=== PATIENT | male | born 1950 | race Caucasian/White ===

== ENCOUNTER → 2018-07-09 11:27 | Outpatient (CLI) | payer MEDICARE, OTHER, SELFPAY ==
[2018-07-09 15:47] LABS: T4 Free Direct 0.81 ng/dL (0.76-1.46); Thyroid Stim Hormone (TSH) 7.27 uIU/mL (0.358-3.74)
== END ==
PROVIDERS: Family Provider Family Medicine; PCP Family Medicine; Visit Provider Family Medicine
DX: E03.9 Hypothyroidism, unspecified (principal)
CPT/HCPCS: 36415; 84439; 84443

== ENCOUNTER → 2018-08-19 09:04 | Outpatient (CLI) | payer MEDICARE, OTHER, SELFPAY ==
--- NOTE | 2018-08-19 09:07 | RAD_ITS ---
STUDY: X-RAY - RIGHT KNEE REASON FOR EXAM: Pain. TECHNIQUE: 4 view(s) of the knee. COMPARISON: None. FINDINGS: Normal visualized distal femur. Normal visualized proximal tibia and fibula. Normal proximal tibiofibular articulation. Normal medial femorotibial compartment. Normal lateral femorotibial compartment. Normal patellofemoral articulation. There is an enthesophyte at the superior pole of the patella. RAD/Knee 4 or More Views IMPRESSION: Patellar enthesopathy. Otherwise, unremarkable x-ray examination of the right knee. Electronically Signed: Philip Silva MD at 15:34 EDT Tel , Service support ,
== END ==
PROVIDERS: Family Provider Family Medicine; PCP Family Medicine; Referring Provider Orthopaedic Surgery; Visit Provider Orthopaedic Surgery
DX: M25.561 Pain in right knee (principal)
CPT/HCPCS: 73564

== ENCOUNTER 2018-10-04 11:00 | Outpatient (RCR) | payer MEDICARE, OTHER, SELFPAY ==
--- NOTE | 2018-09-13 11:09 | HP.PTEVAL ---
Patient's Visit Information CRYSTAL Doug RUIZ is a 68 year old M referred to Physical Therapy by Irena Fenton DO with a diagnosis of R medial meniscal tear. Date of Evaluation: 09/13/18 Physical Therapist: Kvng García, PT, - Visit Plan Frequency: 1x/Week Duration: 2 Weeks Plan: I issued a HEP consisting of knee flex, ext, hip abd and add, squats, and HR 15x2 ea with BTB. F/U or DC in 3 weeks - Subjective Subjective: Pt reports his R knee has been sore for 4 months. Pain had an insidious onset in nature. Pt reports his R knee never gives out, locks up, or clicks. Pt denies PMHx. Pt reports he had xrays performed which revealed degenerative changes. 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 Pt reports he has no functional limitations with the exception of prolonged walking. No sleep difficulty secondary to pain. pain is 0/10 at rest, 5/10 at worst. Pt denies T or N at this time. Pt reports his goal is to get some ex's to perform at home. - Pain R knee Pain Intensity (Out of 10): 0 Pain Intensity Range: 5 - Objective Neuro: B LE sensation is WNL to light touch. B achilles reflex= 1/3. Girth at joint line: R knee 36 cm, L knee 35 cm. ROM: L knee 0-125, R knee 0-108. MMT: B LE's 5/5 throughout. Special tests: pos mcmurrays sign - Goals Goal 1:: Pt will be I with HEP Goal Time Frame: 1 Week - Rehabilitation Potential Physical Therapy Diagnosis: R knee pain and limitations with prolonged ambulation secondary to deg changes Rehabilitation Potential: Good - Anticipated Interventions Patient/Client Instruction: Educate patient on: Condition, Plan of Care For the Purpose of:: To improve self management Therapeutic Exercise to Include: Strength training For the Purpose of:: To decrease pain, To increase ROM, To improve muscle performance and motor function Cryotherapy (ice pack, ice massage): Yes For the Purpose of:: To decrease pain, To increase ROM, To improve muscle performance and motor function Thank you for the opportunity to evaluate your patient. For Medicare and Medicare HMO plans, please review the plan of care and approve it. It will need to be FAXED BACK to us at [phone] for Medicare purposes. Please let me know if there are questions or concerns regarding this plan of care. Physician Signature: Date:
--- NOTE | 2018-10-04 11:26 | HP.PTDCSUM ---
HP - PT D/C Summary It has been my pleasure to treat CRYSTAL RUIZ under orders from Irena Fenton DO, for the diagnosis of R medial meniscal tear for a total of 1 visit(s). Discharge Date: Please see the following information for a summary of their discharge status. - Pain R knee Pain Intensity (Out of 10): 0 - Goals Goal 1:: Pt will be I with HEP - Plan Plan: I issued a HEP consisting of knee flex, ext, hip abd and add, squats, and HR 15x2 ea with BTB. F/U or DC in 3 weeks - D/C Information If there are questions or concerns regarding this patient's physical therapy, please feel free to call me at [phone]. Thank you for the referral of this patient. Sincerely, Kvng García, PT,
--- NOTE | 2018-10-04 11:40 | HP.PTDCSUM ---
HP - PT D/C Summary It has been my pleasure to treat CRYSTAL RUIZ under orders from Irena Fenton DO, for the diagnosis of R medial meniscal tear for a total of 2 visit(s). Discharge Date: Please see the following information for a summary of their discharge status. - Subjective Subjective: Pt reports he is painfree and ready fouzia discharge - Pain R knee Pain Intensity (Out of 10): 0 - Objective Objective/Function: R knee pain 0/10. R knee MMT: 5/5 throughout. ROM: 0-125. Pt is I with HEP and has achieved all Rx goals - Goals Goal 1:: Pt will be I with HEP Goal Progress: Goal Met - Plan Plan: Discharge - D/C Information If there are questions or concerns regarding this patient's physical therapy, please feel free to call me at [phone]. Thank you for the referral of this patient. Sincerely, Kvng García, PT,
== END 2018-10-04 12:17 | disposition home or self-care (01) ==
LOC: PT 11:00
PROVIDERS: Family Provider Family Medicine; PCP Family Medicine; Visit Provider Orthopaedic Surgery
DX: M23.307 Other meniscus derangements, unspecified meniscus, left knee (principal)
CPT/HCPCS: 97110; 97161; 97530

== ENCOUNTER 2018-10-07 04:02 | Emergency (ER) | payer MEDICARE, OTHER, SELFPAY ==
[2018-10-07 04:03] VITALS: BP 156/103; PULSE 79; RESP 16; TEMP 36.4; O2SAT 93; BMI 32.1
--- NOTE | 2018-10-07 04:27 | RAD_ITS ---
HISTORY: C/O RT MEDIAL WRIST PAIN. NKI. WOKE UP THIS AM WITH THE PAIN COMPARISON: None FINDINGS: XR right Wrist 3 Views: No fracture, dislocation, or bony abnormality. Joint spaces appear preserved. No bony erosions. Localized soft tissue calcification bordering the ulnar styloid process in the region of the triangular fibrocartilage. This pattern may be seen with CPPD/pseudogout. RAD/Wrist min 3 Views IMPRESSION: Soft tissue calcification at the ulnar right wrist and this may be seen with CPPD/pseudogout. Otherwise negative exam. at 0458 Reported and signed by: Lenard Wolf MD Electronically Signed: Lenard Wolf, at 4:56 EST Tel , Service support ,
[2018-10-07] MEDS: Ibuprofen 600 MG Tablet PO (04:31)
--- NOTE | 2018-10-07 05:00 | ED.VISSUMM ---
- ER Visit Summary Date of Service: 10/07/18 Chief Complaint: Right wrist pain History of Present Illness: The patient is a 68 M nontraumatic increasing right wrist pain since this morning. States mild symptoms this morning. States went bowling this evening after returning home was worsening. 2 Tylenol was taken with no relief. No history of gastric ulcers or kidney injury. Recently saw Dr. Perales for meniscus injury. No previous similar symptoms in the past. Physical Examination: General: Alert and oriented ?3, no acute distress HEENT: Normocephalic, atraumatic. Moist mucosa membranes Neck: supple, nontender. Cardiovascular: Regular rate and rhythm, no murmurs Respiratory: Normal breath sounds, symmetric, no distress Abdomen: Soft, nontender, nondistended Extremities: Right upper extremity: No elbow pain. Reproducible right wrist pain along the ulnar styloid distally along the ulnar aspect. Negative axial load of the TFCC. Reproducible pain with forced radial deviation. No snuffbox tenderness. Skin intact. No erythema. Neuro: no focal neurological deficits. Test Results: Right wrist x-ray: Calcification of the TFCC possible CPPD or pseudogout. Emergency Department Course and Treatment: Nontraumatic wrist pain baseline x-ray reviewed calcium deposits in the TFCC.. She would Motrin and reevaluation had some improving symptoms. No tenderness with axial load of TFCC. This likely sprain of ligaments on the ulnar aspect. Wrist splint provided for comfort. He will wear at night. Continue short-term Motrin as needed. He will follow-up with orthopedics for reevaluation symptoms not improved. In addition request PCP follow-up due to recently hearing his current PCP having health issues. Follow-up was given. Treatment Plan: [] Disposition: Discharge Impression: Right wrist sprain This note was generated with [employer] dictation software. It may contain incorrect words, spelling, and punctuation that were not noted in review of the chart prior to signing ED Disposition - Plan for ED Patient: Disposition: Home or Assisted Living Chief Complaint: Upper Extremity Injury Diagnosis: Right wrist sprain Instructions: ED Sprain Wrist Prescriptions: Ibuprofen 600 mg PO 4X/DAY PRN #20 tablet PRN Reason: Pain Referrals: Irena Fenton DO [STAFF PHYSICIAN] - 3-5 Days if not improving Rebecca Tapia DO [STAFF PHYSICIAN] - Additional Instructions: Calcium buildup at the [facility]. Take anti-inflammatories as needed. Keep wrist splint for comfort. Follow-up with Dr. Fenton
--- NOTE | 2018-10-07 05:12 | ED.DCSUM_ITS ---
- ER Visit Summary Date of Service: 10/07/18 Chief Complaint: Right wrist pain History of Present Illness: The patient is a 68 M nontraumatic increasing right wrist pain since this morning. States mild symptoms this morning. States went bowling this evening after returning home was worsening. 2 Tylenol was taken with no relief. No history of gastric ulcers or kidney injury. Recently saw Dr. Perales for meniscus injury. No previous similar symptoms in the past. Physical Examination: General: Alert and oriented ?3, no acute distress HEENT: Normocephalic, atraumatic. Moist mucosa membranes Neck: supple, nontender. Cardiovascular: Regular rate and rhythm, no murmurs Respiratory: Normal breath sounds, symmetric, no distress Abdomen: Soft, nontender, nondistended Extremities: Right upper extremity: No elbow pain. Reproducible right wrist pain along the ulnar styloid distally along the ulnar aspect. Negative axial load of the TFCC. Reproducible pain with forced radial deviation. No snuffbox tenderness. Skin intact. No erythema. Neuro: no focal neurological deficits. Test Results: Right wrist x-ray: Calcification of the TFCC possible CPPD or pseudogout. Emergency Department Course and Treatment: Nontraumatic wrist pain baseline x- ray reviewed calcium deposits in the TFCC.. She would Motrin and reevaluation had some improving symptoms. No tenderness with axial load of TFCC. This likely sprain of ligaments on the ulnar aspect. Wrist splint provided for comfort. He will wear at night. Continue short-term Motrin as needed. He will follow-up with orthopedics for reevaluation symptoms not improved. In addition request PCP follow-up due to recently hearing his current PCP having health issues. Follow-up was given. Treatment Plan: [] Disposition: Discharge Impression: Right wrist sprain This note was generated with [employer] dictation software. It may contain incorrect words, spelling, and punctuation that were not noted in review of the chart prior to signing ED Disposition - Plan for ED Patient: Disposition: Home or Assisted Living Chief Complaint: Upper Extremity Injury Diagnosis: Right wrist sprain Instructions: ED Sprain Wrist Prescriptions: Ibuprofen 600 mg PO 4X/DAY PRN #20 tablet PRN Reason: Pain Referrals: Irena Fenton DO [STAFF PHYSICIAN] - 3-5 Days if not improving Rebecca Tapia DO [STAFF PHYSICIAN] - Additional Instructions: Calcium buildup at the [facility]. Take anti-inflammatories as needed. Keep wrist splint for comfort. Follow-up with Dr. Fenton
[2018-10-07 05:21] VITALS: BP 138/84; PULSE 67; RESP 12; O2SAT 94
--- OUTSIDE RECORDS SUMMARY | 2018-11-22 23:19 | XMS RPT_ITS ---
:1950 Author Organization OHIP Support Name Relationship Address Phone MARISSA HAUSER Unavailable [address] + [place] [address] R Unavailable Unavailable Unavailable JOSEPH MARISSA Unavailable [address] + [place] [address] R Unavailable Unavailable Unavailable MARISSA HAUSER Unavailable [address] + [place] [address] R Unavailable Unavailable Unavailable MARISSA HAUSER Unavailable [address] + [place] [address] R Unavailable Unavailable Unavailable MARISSA HAUSER Unavailable [address] + [place] [address] R Unavailable Unavailable Unavailable MARISSA HAUSER Unavailable [address] + [place] [address] RUB Unavailable [address] + [place] [address] MARISSA HAUSER Unavailable [address] + [place] [address] RUB Unavailable [address] + [place] [address] MARISSA HAUSER Unavailable [address] + [place] [address] RUB Unavailable [address] + [place] [address] MARISSA HAUSER Unavailable [address] + [place] [address] RUB Unavailable [address] + [place] [address] Care Team Providers Name Role Phone SACHIN WATTS (PA) Attending Unavailable CHAPARRO SÁNCHEZ Referring Unavailable SACHIN WATTS (PA) Attending Unavailable CHAPARRO SÁNCHEZ Referring Unavailable SACHIN WATTS (PA) Attending Unavailable SACHIN WATTS (PA) Attending Unavailable SACHIN WATTS (PA) Attending Unavailable GONZALO CHAPARRO MOORE Referring Unavailable Gonzalo, Chaparro Primary Care Unavailable Luis Lane Attending Unavailable Lenard Morrow Attending Unavailable Gonzalo, Chaparro Referring Unavailable Camilo, Lenny Attending Unavailable Gonzalo, Chaparro Primary Care Unavailable Camilo, Lenny Referring Unavailable Chicorelli, Irena Attending Unavailable Gonzalo, Chaparro Referring Unavailable Chicorelli, Irena Attending Unavailable Gonzalo, Chaparro Referring Unavailable Gonzalo, Chaparro Attending Unavailable Gonzalo, Chaparro Primary Care Unavailable Chicorelli, Irena Attending Unavailable Gonzalo, Chaparro Referring Unavailable Chicorelli, Irena Attending Unavailable Chicorelli, Irena Referring Unavailable Gonzalo, Chaparro Primary Care Unavailable Chicorelli, Irena Attending Unavailable Gonzalo, Chaparro Primary Care Unavailable PROBLEMS PROBLEMS DATE TYPE CONDITION / CODE ATTENDING STATUS SOURCE 11/08/2018 Unknown K60.3 - Anal Camilo, Active Alireza fistula / [facility] K60.3(ICD-10) Hospital Repository 10/04/2018 Unknown 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 - Other Chicorelli, Active Alireza meniscus [facility] derangements, Hospital unspecified Repository meniscus, left knee / M23.307(ICD-10) 08/19/2018 Unknown M25.561 - Pain in Chicorelli, Active Murray right knee / [facility] M25.561(ICD-10) Hospital Repository 07/09/2018 Unknown E03.9 - Chaparro Sánchez Active Alireza Hypothyroidism, Community unspecified / Hospital E03.9(ICD-10) Repository PROCEDURES PROCEDURES No Procedure Records FoundRESULTS RESULTS PROGRESS Observed: 11/15/2018 Status: COMPLETED Source: [place] 5:57 PM [facility] REPOSITORY HNO ID: [id number] Author: Sachin Watts (Pa) Service: (none) Author Type: Physician Pastry Finisher Type: Progress Notes Filed: 11/15/2018 6:06 PM Note Text: FOLLOW UP VISIT - POST OP NAME: Crystal Hauser [facility] NO.: [id number] DATE OF SERVICE: 11/15/2018 : 1950 REFERRING PHYSICIAN: Chaparro Sánchez MD Crystal is a patient I am following for recurrent perianal abscess and suspected anal fistula. Dr. Diallo performed an examination under anesthesia with fistulotomy and seton placement on 11/08/18. The patient currently notes some soreness and mild drainage at the site but no major concerns. VITALS: Blood pressure 128/94, pulse 90, weight 94.5 kg (208 lb 6.4 oz). On examination, the operative site is c/d/i with seton suture visible and intact. No signs of infection Assessment IMPRESSION: Status post EUA and fistulotomy with seton placement PLAN: If the patient notes any problems or signs of wound infections, he should contact me immediately. Diagnoses: (K60.3) Anal fistula (primary encounter diagnosis) Return to Clinic: The patient is instructed to follow- up in 2 weeks for recheck with Dr. Diallo Sachin Watts PA-C CNOV Observed: 11/15/2018 Status: COMPLETED Source: [place] 2:00 PM [facility] REPOSITORY Office Visit (GENSWS) CRYSTAL HAUSER ([id number]) 1950 M Date Time Provider Department 11/15/18 2:00 PM SACHIN WATTS (PA) During your visit today, we recorded the following information about you: Pulse Blood pressure Weight 90/minute 128/94 94.5 kg Sachin Watts PA-C 11/15/2018 2:27 PM Signed -Continue washing area with soap and water, sitz baths -Follow up for wound check in 2 weeks Sachin Watts PA-C 11/15/2018 6:06 PM Signed FOLLOW UP VISIT - POST OP NAME: Crystal Hauser [facility] NO.: [id number] DATE OF SERVICE: 11/15/2018 : 1950 REFERRING PHYSICIAN: Chaparro Sánchez MD Crystal is a patient I am following for recurrent perianal abscess and suspected anal fistula. Dr. Diallo performed an examination under anesthesia with fistulotomy and seton placement on 11/08/18. The patient currently notes some soreness and mild drainage at the site but no major concerns. VITALS: Blood pressure 128/94, pulse 90, weight 94.5 kg (208 lb 6.4 oz). On examination, the operative site is c/d/i with seton suture visible and intact. No signs of infection Assessment IMPRESSION: Status post EUA and fistulotomy with seton placement PLAN: If the patient notes any problems or signs of wound infections, he should contact me immediately. Diagnoses: (K60.3) Anal fistula (primary encounter diagnosis) Return to Clinic: The patient is instructed to follow- up in 2 weeks for recheck with Dr. Diallo Sachin Watts PA-C Referring Provider: CHAPARRO SÁNCHEZ [[id number]] Allergies As of Date: 11/15/2018 (No Known Allergies) Date Reviewed: 11/15/2018 Reviewed by: Sachin Watts (Pa) - Fully Assessed Reason for Visit: Post Op [174] Primary Visit Diagnosis:Anal fistula [K60.3] Prescriptions as of 11/15/2018 Sig: SIMVASTATIN 40 MG TABLET Take 1 tablet by mouth daily * MULTIVITAMIN TABLET Take 1 tablet by mouth once d* Problem List As Of Date 11/15/2018 Noted Resolved HYPERLIPIDEMIA NEC/NOS [E78.5] SCREENING MAL NEOP-PROSTATE [Z12.5] INVALID FOR* Obesity [E66.9] INVALID FOR* Other instructions from your clinician: -Continue washing area with soap and water, sitz baths -Follow up for wound check in 2 weeks Follow-up and Disposition History Recorded Encounter Status:Closed by SACHIN WATST PA-C on 11/15/18 PROGRESS Observed: 11/10/2018 Status: COMPLETED Source: [place] 6:41 PM [facility] REPOSITORY O ID: [id number] Author: Lenny Diallo Service: (none) Author Type: Physician Type: Progress Notes Filed: 11/10/2018 6:43 PM Note Text: OPERATIVE NOTATION FOR [facility] SURGICAL PROCEDURE. November 08, 2018 Crystal Hauser 1950 [id number] male PROCEDURE: Examination Under Anesthesia, Anal Fistula with Seton - [id number] SURGEON: Coleen Diallo M.D. FACS POT FLUXER: None DEPT: WQ PROVIDER: [id number]=PhasootLenny Diallo MD POS: [id number] DIAGNOSIS: (K60.3) Anal fistula (primary encounter diagnosis) ASA CLASS: 2 - mild FINDINGS: COMPLICATIONS: None PMHx - PAST MEDICAL HISTORY Diagnosis Date - Kidney stones - Other and unspecified hyperlipidemia COMORBIDITIES - None Post Op Occurrences - None Wound Classification - Contaminated Operative note dictated in the [facility] dictation system. Lenny Diallo MD OPERATIVE REPORT Observed: 11/08/2018 Status: F Source: [place] 9:42 [facility] REPOSITORY [facility] Medical Records Department [address] [place] [address] Operative Report 11/08/18 1756 MR#: [id number] Acct: [id number] Name: CRYSTAL HAUSER Rep #: [id number] : 1950 68 From: Lenny Diallo MD PCP: Chaparro Sánchez MD Status: DEP [facility] [place] Location: [facility] Report of Operation Date of Procedure: 11/08/18 Pre-Operative Diagnosis: posterior anal fistula Post-Operative Diagnosis: posterior anal fistula - deep into posterior midline Surgery/Procedure Performed:: EUA, fistulotomy with seton placement haulage engine operator: None Type of Anesthesia:: General Anesthesiologist: Walter Bergman - ASA2 Specimen's removed: fistula tract Drains: seton and packing Estimated Blood Loss (mL): 50 Fluids Replaced: 1400 Description of Procedure: The patient was brought to the operating suite. Sign in was performed verifying patient, site, procedure, position, and DVT prophylaxis with SCDs. Clindamycin 900mg Following induction of general anesthetic. The patient was transferred to supine position to the prone jackknife position with care being taken to avoid pressure points. The patient s perineal area was then prepped and draped in the usual fashion. Timeout was performed verifying patient, site, procedure, and position. External examination demonstrated a sinus in the left posterior lateral position, approximate 4 cm from anal verge without significant inflammation By digital exam revealed no obvious palpable abnormalities. Anoscopy was performed which demonstrated a normal appearing dentate line. Hydration peroxide was injected into the sinus. This seemed to track along the subcutaneous tissues right to the area of the dentate line, as expected, following Goodsall s rule. A fistula probe was then placed into the track. the track was high over the posterior sphincter necessitating plan for seton placement. The external fistula opening was excised circumferentially and the track was opened. Excess tissue was excised and hemostasis obtained with electrocautery.as dissection was continued approaching the external sphincter, the fistula track was excised with the deeper sphincter leaving at least half of the sphincter complex superficially intact. The mucosa was excised off the sphincter complex and a pack of 0 silk ties as a seton were placed around the superficial sphincter. With good hemostasis, half percent Marcaine was injected in the perianal skin and dibucaine impregnated Gelfoam was placed in the anal canal. iodinated quarter inch gauze was placed into the external defect. A dressing was applied and mesh pants were used to hold the dressing in place. The patient was returned to the supine position and extubated and brought to recovery room in stable condition. - Admit VTE Documentation VTE Present on Admission: No VTE Mechan Device Prophylaxis: SCD's 11/08/182141 <Electronically signed by Lenny Diallo MD> Date Lenny Diallo MD CC: Lenny Diallo MD; Chaparro Sánchez MD Signed DISCHARGE INSTRUCTION Observed: 11/08/2018 Status: F Source: [place] 6:57 PM [facility] REPOSITORY [facility] Medical Records Department [address] [place] [address] Instructions for Home/Discharge Instructions 11/08/18 1856 MR#: [id number] Acct: [id number] Name: CRYSTAL HAUSER Rep #: [id number] : 1950 68 From: Lenny Diallo MD PCP: Chaparro Sánchez MD Status: REG SDC Discharge Diet: No Restrictions Discharge Activity: Return to Normal Activity, May Not Drive - while taking narcotic pain medications. Additional Activity Instructions:: Do not drive or work with heavy equipment or sign legal documents for 24 hours. Be aware that pain medications may cause nausea. You should typically eat light foods as you take your pain medications. Pain medications may also cause constipation, if you have difficulty with this please discuss with your doctor. Additional Dressing/Incision Instructions:: Leave the operative bandage on for 2 days. If a local anesthetic plug was placed in the anal area, try not to expel for 24-48 hours. Remove anal packing tomorrow. Place dibucaine ointment on the perianal area as needed. Sitz baths twice daily and after bowel movements. Allergies/Adverse Reactions: Allergies No Known Allergies Allergy (Verified 11/05/18 08:13) Medications to take at Discharge coenzyme Q 10 10 mg capsule 10 mg PO ONCE 08/19/18 simvastatin 40 mg tablet 40 mg PO QHS 08/19/18 Ascorbic Acid [Vitamin C] 500 mg PO DAILY 10/07/18 Multivitamin [Daily Multiple Vitamin] 1 each PO DAILY 11/05/18 Dibucaine [Nupercainal] 56.7 gm NH PRN PRN #2 oint...g. 11/08/18 Oxycodone HCl/Acetaminophen [Percocet 5/325] 1 tab PO Q6H PRN PRN 7 Days #18 tab 11/08/18 The following prescriptions were given: Oxycodone HCl/Acetaminophen [Percocet 5/325] 1 tab PO Q6H PRN PRN 7 Days #18 tab PRN Reason: Pain Dibucaine [Nupercainal] 56.7 gm NH PRN PRN #2 oint...g. PRN Reason: Pain Primary Care Physician: Chaparro Sánchez MD [Primary Care Provider] - Test Results: Test results from this visit will be discussed in further detail at your follow-up appointment, if applicable. Please Follow Up With: Lenny Diallo MD - [phone] When: Plan to have a follow up approximately 14 days after surgery. Please Follow Up With: Sachin Watts PA-C When: follow up in 7 days 11/08/18 3864 <Electronically signed by Lenny Diallo MD> Date Lenny Diallo MD CC: Chaparro Sánchez MD Signed CNOP Observed: 11/08/2018 Status: COMPLETED Source: [place] 12:00 AM [facility] REPOSITORY Operative Note (Enc) (GENSWS) Progress Notes: Lenny Diallo MD 11/10/2018 6:43 PM Signed OPERATIVE NOTATION FOR [facility] SURGICAL PROCEDURE. November 08, 2018 Crystal Hauser 1950 [id number] male PROCEDURE: Examination Under Anesthesia, Anal Fistula with Seton - [id number] SURGEON: Coleen Diallo M.D. FACS POT FLUXER: None DEPT: PROVIDER: S76=HetgljuLenny Diallo MD POS: [id number] DIAGNOSIS: (K60.3) Anal fistula (primary encounter diagnosis) ASA CLASS: 2 - mild FINDINGS: COMPLICATIONS: None PMHx - PAST MEDICAL HISTORY Diagnosis Date - Kidney stones - Other and unspecified hyperlipidemia COMORBIDITIES - None Post Op Occurrences - None Wound Classification - Contaminated Operative note dictated in the [facility] dictation system. Lenny Diallo MD Encounter Status:Closed by LENNY DIALLO MD on 11/10/18 FISTULA Observed: 11/08/2018 Status: F Source: [place] 12:00 AM [facility] REPOSITORY Patient: CRYSTAL HAUSER : 1950 (68/M) Acct Num: [id number] Phys: Lenny Diallo MD Unit Num: [id number] Loc: [facility] Specimen: [id number] Received: 11/09/1835 Spec Type: Fistula TISSUES 1 TISSUES: Anal region GROSS DESCRIPTION Received in fixative is one container labeled with the patient's name and designated anal fistula. The specimen consists of two pieces of pink, congested soft tissue that in aggregate measure 4 x 1.5 x 1.5 cm. Sections do not reveal any mass lesion. The specimen is totally submitted in one cassette. / JOVANA:malissa 11/09/18 TC:5 CPT: 32791 HEADER OPERATION: EUA, fistulotomy, anal PRE-OP DIAGNOSIS: Recurrent drainage/perianal abscess TISSUE SUBMITTED: Anal fistula MICROSCOPIC DESCRIPTION Slides are reviewed. MICROSCOPIC DIAGNOSIS Anal fistula: Pieces of skin with underlying tissue including skeletal muscle tissue with chronic inflammation and hyperkeratosis, clinically anal fistula. SJ:malissa 11/10/18 Signed Axel Cox MD 11/10/18 <signature on file> Performed By: #### PFIST #### [facility] [place], [address] PROGRESS Observed: 11/04/2018 Status: COMPLETED Source: [place] 8:19 AM [facility] REPOSITORY HNO ID: [id number] Author: Sachin Watts (Pa) Service: (none) Author Type: Physician Pastry Finisher Type: Progress Notes Filed: 11/04/2018 1:29 PM Note Text: HISTORY AND PHYSICAL Crystal Hauser 1950 REFERRING PHYSICIAN: Self CHIEF COMPLAINT: Recurrent drainage/perianal abscess HPI: The patient is a 68 year old male with a complaint of recurrent perianal abscess. States has had a small lump above the anus for some time since scratching this site, but over the last couple of months has become irritating and intermittently drains small amount of bloody fluid. Denies fever or chills. Denies history of diabetes. Patient notes he had a colonoscopy last year by Dr. Campo which was unremarkable. ? The patient was seen by his primary care physician and was started on oral antibiotics. He continues to have drainage from the site and was referred for surgical evaluation. I performed an incision and drainage of the abscess on 10/01/18 and patient initially did well following that procedure. ? Patient presented on 10/21 for recheck, noting he had an episode of loose stools and after that noted some burning/stinging irritation at the site of his prior abscess. He had his look at the area at that time, and she had noted a small opening in the skin. Patient denies any drainage, warmth or swelling but does note this open area is sensitive with loose stools or wiping after a bowel movement. We had discussed observation with plans for possible CT and/or EUA for further evaluation if symptoms persisted. Patient notes he still has an open area which intermittently becomes irritated and painful to sit on. He notes this sometimes fills up and he is able to drain some purulent material after which time symptoms are temporarily relieved. He has been doing sitz baths as instructed. He would like to pursue definitive treatment. ? Patient states he is otherwise in good health. He denies any known cardiac or pulmonary issues. Denies any problems with sedation in the past. PAST MEDICAL HISTORY Diagnosis Date - Kidney stones - Other and unspecified hyperlipidemia PAST SURGICAL HISTORY Procedure Laterality Date - COLONOSCOPY 2018 Current Outpatient Prescriptions: simvastatin (ZOCOR) 40 mg tablet Take 1 tablet by mouth daily at bedtime. multivitamin tablet Take 1 tablet by mouth once daily. No current facility-administered medications for this visit. ALLERGIES: Patient has no known allergies. PERSONAL HISTORY: Social History Marital status: Spouse name: Years of education: Number of children: Social History Main Topics Smoking status: Never Smoker Smokeless tobacco: Never Used Alcohol use: No Drug use: No FAMILY HISTORY: FAMILY HISTORY Problem Relation Age of Onset - Cancer Mother cancer of uncertain primary - Ischemic Heart Disease Father [place] age 75 - Lipids Sister REVIEW OF SYSTEMS GENERAL: No weight loss, malaise or fevers HEENT: Negative for frequent or significant headaches, No changes in hearing or vision, no nose bleeds or other nasal problems NECK: Negative for lumps, goiter, pain and significant neck swelling RESPIRATORY: Negative for cough, hemoptysis, wheezing, COPD, dyspnea or shortness of breath CARDIOVASCULAR: Negative for chest pain, leg swelling, hypertension, CHF or palpitations GI: See HPI SKIN: See HPI PSYCH: Negative for sleep disturbance, mood disorder and recent psychosocial stressors HEMATOLOGY/LYMPHOLOGY: Negative for prolonged bleeding, bruising easily or swollen nodes ENDOCRINE: Negative for cold or heat intolerance, polyuria, polydipsia and goiter PHYSICAL EXAMINATION: General: The patient is 68 year old male, well nourished, well hydrated in no acute distress. The patient is oriented to time, place, and person. VITALS: Blood pressure 138/74, pulse 78, temperature 36.7 ?C (98.1 ?F), temperature source Temporal Artery, resp. rate 18, height 172.7 cm (5' 8), weight 94.6 kg (208 lb 9.6 oz), SpO2 98 %. HEENT: Normal cephalic, ataumatic, pupils are equally round, sclera are anicteric, mucous membranes are moist, oropharynx is clear. Neck has no masses, asymmetry or lymphadenopathy. Respiratory: Clear to auscultation and percussion. Normal respiratory excursion and pattern. Cardiac: Examination is regular rate and rhythm. Normal S1/S2 Abdominal exam: Soft, nontender, with no palpable masses. No hepatosplenomegaly. No palpable hernias. Rectal exam: exam deferred Extremities: no clubbing, cyanosis or edema. No adenopathy. Other: On examination, a pinpoint opening is again noted superior to the anus with yellow drainage present and some thickening of skin with tenderness between the draining sinus and the anus. 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 Diallo, who also participated in development of the following plan. He plans to perform Examination under Anesthesia with possible fistulotomy. Consent: The proposed procedure, risks, benefits, and alternatives were discussed with the patient in detail. All the patient's questions were answered, and the patient voiced understanding. The patient desires to proceed with surgery. Diagnoses: (K61.0) Perianal abscess (primary encounter diagnosis) Return to Clinic: The patient is instructed to follow-up with me 1 week post-operatively RAHEL Yan Observed: 11/03/2018 Status: COMPLETED Source: [place] 1:00 PM [facility] REPOSITORY Office Visit (GENSWS) CRYSTAL HAUSER ([id number]) 1950 M Date Time Provider Department 11/03/18 1:00 PM SACHIN WATTS) TORY During your visit today, we recorded the following information about you: Temperature Pulse Respiration Blood pressure 98.1 degrees 78/minute 18/minute 138/74 Weight Height 94.6 kg 1.727 m Sachin Watts PA-C 11/04/2018 1:29 PM Signed HISTORY AND PHYSICAL Crystal Doug Hauser 1950 REFERRING PHYSICIAN: Self CHIEF COMPLAINT: Recurrent drainage/perianal abscess HPI: The patient is a 68 year old male with a complaint of recurrent perianal abscess. States has had a small lump above the anus for some time since scratching this site, but over the last couple of months has become irritating and intermittently drains small amount of bloody fluid. Denies fever or chills. Denies history of diabetes. Patient notes he had a colonoscopy last year by Dr. Campo which was unremarkable. ? The patient was seen by his primary care physician and was started on oral antibiotics. He continues to have drainage from the site and was referred for surgical evaluation. I performed an incision and drainage of the abscess on 10/01/18 and patient initially did well following that procedure. ? Patient presented on 10/21 for recheck, noting he had an episode of loose stools and after that noted some burning/stinging irritation at the site of his prior abscess. He had his look at the area at that time, and she had noted a small opening in the skin. Patient denies any drainage, warmth or swelling but does note this open area is sensitive with loose stools or wiping after a bowel movement. We had discussed observation with plans for possible CT and/or EUA for further evaluation if symptoms persisted. Patient notes he still has an open area which intermittently becomes irritated and painful to sit on. He notes this sometimes fills up and he is able to drain some purulent material after which time symptoms are temporarily relieved. He has been doing sitz baths as instructed. He would like to pursue definitive treatment. ? Patient states he is otherwise in good health. He denies any known cardiac or pulmonary issues. Denies any problems with sedation in the past. PAST MEDICAL HISTORY Diagnosis Date - Kidney stones - Other and unspecified hyperlipidemia PAST SURGICAL HISTORY Procedure Laterality Date - COLONOSCOPY 2017 Current Outpatient Prescriptions: simvastatin (ZOCOR) 40 mg tablet Take 1 tablet by mouth daily at bedtime. multivitamin tablet Take 1 tablet by mouth once daily. No current facility-administered medications for this visit. ALLERGIES: Patient has no known allergies. PERSONAL HISTORY: Social History Marital status: Spouse name: Years of education: Number of children: Social History Main Topics Smoking status: Never Smoker Smokeless tobacco: Never Used Alcohol use: No Drug use: No FAMILY HISTORY: FAMILY HISTORY Problem Relation Age of Onset - Cancer Mother cancer of uncertain primary - Ischemic Heart Disease Father [place] age 75 - Lipids Sister REVIEW OF SYSTEMS GENERAL: No weight loss, malaise or fevers HEENT: Negative for frequent or significant headaches, No changes in hearing or vision, no nose bleeds or other nasal problems NECK: Negative for lumps, goiter, pain and significant neck swelling RESPIRATORY: Negative for cough, hemoptysis, wheezing, COPD, dyspnea or shortness of breath CARDIOVASCULAR: Negative for chest pain, leg swelling, hypertension, CHF or palpitations GI: See HPI SKIN: See HPI PSYCH: Negative for sleep disturbance, mood disorder and recent psychosocial stressors HEMATOLOGY/LYMPHOLOGY: Negative for prolonged bleeding, bruising easily or swollen nodes ENDOCRINE: Negative for cold or heat intolerance, polyuria, polydipsia and goiter PHYSICAL EXAMINATION: General: The patient is 68 year old male, well nourished, well hydrated in no acute distress. The patient is oriented to time, place, and person. VITALS: Blood pressure 138/74, pulse 78, temperature 36.7 ?C (98.1 ?F), temperature source Temporal Artery, resp. rate 18, height 172.7 cm (5' 8), weight 94.6 kg (208 lb 9.6 oz), SpO2 98 %. HEENT: Normal cephalic, ataumatic, pupils are equally round, sclera are anicteric, mucous membranes are moist, oropharynx is clear. Neck has no masses, asymmetry or lymphadenopathy. Respiratory: Clear to auscultation and percussion. Normal respiratory excursion and pattern. Cardiac: Examination is regular rate and rhythm. Normal S1/S2 Abdominal exam: Soft, nontender, with no palpable masses. No hepatosplenomegaly. No palpable hernias. Rectal exam: exam deferred Extremities: no clubbing, cyanosis or edema. No adenopathy. Other: On examination, a pinpoint opening is again noted superior to the anus with yellow drainage present and some thickening of skin with tenderness between the draining sinus and the anus. 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 Diallo, who also participated in development of the following plan. He plans to perform Examination under Anesthesia with possible fistulotomy. Consent: The proposed procedure, risks, benefits, and alternatives were discussed with the patient in detail. All the patient's questions were answered, and the patient voiced understanding. The patient desires to proceed with surgery. Diagnoses: (K61.0) Perianal abscess (primary encounter diagnosis) Return to Clinic: The patient is instructed to follow-up with me 1 week post-operatively Sachin Watts PA-C Referring Provider: SELF [[id number]] Allergies As of Date: 11/03/2018 (No Known Allergies) Date Reviewed: 11/03/2018 Reviewed by: Sachin Watts (Pa) - Fully Assessed Reason for Visit: Follow Up [171] Reason For Visit History Recorded Primary Visit Diagnosis:Perianal abscess [K61.0] Prescriptions as of 11/03/2018 Sig: SIMVASTATIN 40 MG TABLET Take 1 tablet by mouth daily * MULTIVITAMIN TABLET Take 1 tablet by mouth once d* Problem List As Of Date 11/03/2018 Noted Resolved HYPERLIPIDEMIA NEC/NOS [E78.5] SCREENING MAL NEOP-PROSTATE [Z12.5] INVALID FOR* Obesity [E66.9] INVALID FOR* Follow-up and Disposition History Recorded Letter Text Letter Text NURSE'S SIGNATURE DOCTOR'S SIGNATURE TIME TIME DATE November 04, 2018 [facility] DATE November 04, 2018 Orders verified by readback: PRE-ADMISSION TESTING PHYSICIAN'S ORDER SHEET PREOPERATIVE ORDERS: X ANTIBIOTIC: _clindamycin 900mg IVPB 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 Date/Time Doctor OR __ Anesthesia not yet notified of consult by surgeon. Check area of concern. System of concern: __Cardiac __Pulmonary __Neuro __ Airway __Allergies __Other __ Anesthesia to see patient at [facility] appointment. (PAT appt must be between 1-3 pm) LAB ORDERS: X Labs done at [facility] (Copies enclosed for [facility]) __ Duplicate order __ No Labs ordered ___ CBC ___ CBC/Diff ___ Basic Metabolic Profile (BUN, Lytes, Glu, Cre, Calcium) __ Glucose __ Creatinine __ BUN __ Lytes __ Protime- Dx code: __ PTT - Dx code: __ Urinalysis __ Urinalysis (complete) __ Liver Profile __ Lipid Profile __ Alk Phosphatase __ Bilirubin __ Amylase/Lipase __ Magnesium __ Phosphorous __ PSA - Dx code: __ CEA - Dx code: __ Urine __ Serum (Age 11-52 years old unless sterilization or pt refuses) X Screen for MRSA (PCR) if guidelines met Other: BLOOD BANK: __ Type AND Screen __ Type AND Cross (RC) units __ Autologous units __ Fresh Frozen Plasma units __ Platelets units ANCILLARY DEPTS: __EKG-MD to read: __PA/Lat CXR Reason for exam: __ Incentive Spirometer __ 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 Patient has no known allergies. Patient's Name: Pam Hauserleandra Patient's Birthdate: 1950 Diagnosis: (K61.0) Perianal abscess (primary encounter diagnosis) [facility] Surgery / Procedure: Surgeon / Physician: Lenny Diallo MD My doctor and I talked about the recommended surgery/procedure, the reasons it is being recommended, and what it generally is expected to do. We talked about major risks or complications that could occur. We talked about options other than the recommended surgery/procedure (including no treatment) and the benefits and risks of each option. I received and understand information describing the surgery or procedure, its potential risks and complications. I know surgery/medicine is not an exact science. No doctor, nurse or anyone from [facility] promised or guaranteed the success or clinical outcome of the surgery/procedure, or that a risk or complication could not occur. I know every surgery/procedure has risks, including the risk of anesthesia, the risk of unplanned injury, the risk of infection and the risk of failure. I know that not every possible risk could be covered in the written materials or in talking with the doctor. Before signing this Consent, I had an opportunity to discuss the recommended surgery/procedure, other options, and risks. I am satisfied with the answers to all of my questions. I understand about risks and knowingly accept them. If you are (or believe you may be ), tell your doctor or nurse before you sign this Consent. Your doctor will discuss with you if there are potential risks to your unborn child. Your consent will be for yourself and for the unborn child. It is the Hospital's policy to require that a responsible adult drive you directly home when you leave the Hospital. By signing, you accept and agree with this policy. By signing, I voluntarily and knowingly give my informed consent: O To have the doctor perform the recommended surgery/procedure. O To have such anesthetics (including moderate sedation) that are necessary and advisable. O To have the doctor perform additional, medically necessary surgery/procedures to treat any unforeseen or newly-discovered condition that occurs during surgery/the procedure, which needs prompt attention. O To examine, record and dispose of any tissue or body parts that are removed. O To allow photographs that will be used strictly for documenting my medical condition and treatment, which will be made a part of my confidential medical record. Check, if applicable: - To give me blood or blood products during surgery/procedure and during my hospital stay, as medically necessary. The risks, benefits, and alternatives to transfusions have been discussed with me and all my questions have been answered. - To not give me blood or blood products. I fully understand that this may adversely affect my medical management and may result in my . Alternatives to blood/blood products have been discussed with me. I read this Form, or had it read to me. I understand what it says. Patient or Responsible Person Relationship to Patient Witness to Signature Only Reason Patient Does Not Sign -- Date and Time signed Physician's signature [id number] Rev 05/01 Informed Consent Page 1 of 2 [facility] Informed Consent Surgery / Procedure: Examination Under Anesthesia, Anal Fistula - [id number] Surgeon / Physician: Lenny Diallo MD My doctor and I talked about the recommended surgery / procedure, the reasons it is being recommended, and what it generally is expected to do. We talked about major risks or complications that could occur. We talked about options other than the recommended surgery / procedure (including no treatment) and the benefits and risks of each option. I received and understand information describing the surgery or procedure, its potential risks, and complications. I know surgery / medicine is not an exact science. No doctor, nurse or anyone from [facility] promised or guaranteed the success or clinical outcome of the surgery / procedure, or that a risk or complication could not occur. I know every surgery / procedure has risks, including the risk of anesthesia, the risk of unplanned injury, the risk of infection and the risk of failure. I know that not every possible risk could be covered in the written materials or in talking with the doctor. Before signing this Consent, I had an opportunity to discuss the recommended surgery / procedure, other options, risks, and what may occur if I choose not to have the surgery / procedure. I am satisfied with the answers to all of my questions. I understand about risks and knowingly accept them. If you are (or believe you may be ), tell your doctor or nurse before you sign this Consent. Your doctor will discuss with you if there are potential risks to your unborn child. Your consent will be for yourself and for the unborn child. It is the Hospital?s policy to require that a responsible adult drive you directly home when you leave the Hospital. By signing, you accept and agree with this policy. By signing, I voluntarily and knowingly give my informed consent: To have the doctor perform the recommended surgery / procedure To have such anesthetics (including moderate / deep sedation) that are necessary and advisable. To have the doctor perform additional, medically necessary surgery / procedures to treat any unforeseen or newly-discovered condition that occurs during surgery / the procedure, which needs prompt attention. To examine, record and dispose of any tissue or body parts that are removed. To allow photographs that will be used strictly for documenting my medical condition and treatment, which will be made a part of my confidential medical record. To allow [facility] employees, such as an Registered Nurse Ladle Handler (ENGINEERING RECRUITER) to assist with my surgery To allow Healthcare Industry Representatives to be present during my surgery or procedure To allow students to participate in the care, under appropriate situations. Page 1 of 2 [facility] Informed Consent Check One: To give me blood or blood products during surgery / procedure and during my hospital stay, as medically necessary. The risks, benefits, and alternatives to transfusions have been discussed with me and all my questions have been answered. To not give me blood or blood products. I fully understand that this may adversely affect my medical management and may result in my . Alternatives to blood / blood products have been discussed with me. I read this Form, or had it read to me. I understand what it says. Patient Signature Relationship to Patient Date AND Time Signed Reason Patient Does Not Sign Witness to Signature Only Date and Time Signed I certify that I have explained the nature, purpose, anticipated risks and benefits, complications, and alternatives to the proposed procedure to the patient. I have answered all questions fully and I believe the patient fully understands what I have explained. Physician?s Signature Date and Time [facility] [address] [place], [place] [address] Chaparro Sánchez MD [address] [place] [address] 11/04/2018 Dear Chaparro Sánchez MD : Thank you for allowing me to evaluate your patient, Crystal Doug Hauser. I saw Crystal on 11/03/2018. I am planning to perform a asdsad. Enclosed is a copy of my office dictation for Crystal which includes my evaluation and recommendations. Again, thank you for the referral of Crystal Hauser. If I can be of any assistance to you in the future, please don't hesitate to call. Sincerely yours, Lenny Diallo MD, FACS HISTORY AND PHYSICAL Crystal Hauser 1950 REFERRING PHYSICIAN: Self CHIEF COMPLAINT: Recurrent drainage/perianal abscess HPI: The patient is a 68 year old male with a complaint of recurrent perianal abscess. States has had a small lump above the anus for some time since scratching this site, but over the last couple of months has become irritating and intermittently drains small amount of bloody fluid. Denies fever or chills. Denies history of diabetes. Patient notes he had a colonoscopy last year by Dr. Campo which was unremarkable. ? The patient was seen by his primary care physician and was started on oral antibiotics. He continues to have drainage from the site and was referred for surgical evaluation. I performed an incision and drainage of the abscess on 10/01/18 and patient initially did well following that procedure. ? Patient presented on 10/21 for recheck, noting he had an episode of loose stools and after that noted some burning/stinging irritation at the site of his prior abscess. He had his look at the area at that time, and she had noted a small opening in the skin. Patient denies any drainage, warmth or swelling but does note this open area is sensitive with loose stools or wiping after a bowel movement. We had discussed observation with plans for possible CT and/or EUA for further evaluation if symptoms persisted. Patient notes he still has an open area which intermittently becomes irritated and painful to sit on. He notes this sometimes fills up and he is able to drain some purulent material after which time symptoms are temporarily relieved. He has been doing sitz baths as instructed. He would like to pursue definitive treatment. ? Patient states he is otherwise in good health. He denies any known cardiac or pulmonary issues. Denies any problems with sedation in the past. PAST MEDICAL HISTORY Diagnosis Date - Kidney stones - Other and unspecified hyperlipidemia PAST SURGICAL HISTORY Procedure Laterality Date - COLONOSCOPY 2017 Current Outpatient Prescriptions: simvastatin (ZOCOR) 40 mg tablet Take 1 tablet by mouth daily at bedtime. multivitamin tablet Take 1 tablet by mouth once daily. No current facility-administered medications for this visit. ALLERGIES: Patient has no known allergies. PERSONAL HISTORY: Social History Marital status: Spouse name: Years of education: Number of children: Social History Main Topics Smoking status: Never Smoker Smokeless tobacco: Never Used Alcohol use: No Drug use: No FAMILY HISTORY: FAMILY HISTORY Problem Relation Age of Onset - Cancer Mother cancer of uncertain primary - Ischemic Heart Disease Father [place] age 75 - Lipids Sister REVIEW OF SYSTEMS GENERAL: No weight loss, malaise or fevers HEENT: Negative for frequent or significant headaches, No changes in hearing or vision, no nose bleeds or other nasal problems NECK: Negative for lumps, goiter, pain and significant neck swelling RESPIRATORY: Negative for cough, hemoptysis, wheezing, COPD, dyspnea or shortness of breath CARDIOVASCULAR: Negative for chest pain, leg swelling, hypertension, CHF or palpitations GI: See HPI SKIN: See HPI PSYCH: Negative for sleep disturbance, mood disorder and recent psychosocial stressors HEMATOLOGY/LYMPHOLOGY: Negative for prolonged bleeding, bruising easily or swollen nodes ENDOCRINE: Negative for cold or heat intolerance, polyuria, polydipsia and goiter PHYSICAL EXAMINATION: General: The patient is 68 year old male, well nourished, well hydrated in no acute distress. The patient is oriented to time, place, and person. VITALS: Blood pressure 138/74, pulse 78, temperature 36.7 ?C (98.1 ?F), temperature source Temporal Artery, resp. rate 18, height 172.7 cm (5' 8), weight 94.6 kg (208 lb 9.6 oz), SpO2 98 %. HEENT: Normal cephalic, ataumatic, pupils are equally round, sclera are anicteric, mucous membranes are moist, oropharynx is clear. Neck has no masses, asymmetry or lymphadenopathy. Respiratory: Clear to auscultation and percussion. Normal respiratory excursion and pattern. Cardiac: Examination is regular rate and rhythm. Normal S1/S2 Abdominal exam: Soft, nontender, with no palpable masses. No hepatosplenomegaly. No palpable hernias. Rectal exam: exam deferred Extremities: no clubbing, cyanosis or edema. No adenopathy. Other: On examination, a pinpoint opening is again noted superior to the anus with yellow drainage present and some thickening of skin with tenderness between the draining sinus and the anus. 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 Diallo, who also participated in development of the following plan. He plans to perform Examination under Anesthesia with possible fistulotomy. Consent: The proposed procedure, risks, benefits, and alternatives were discussed with the patient in detail. All the patient's questions were answered, and the patient voiced understanding. The patient desires to proceed with surgery. Diagnoses: (K61.0) Perianal abscess (primary encounter diagnosis) Return to Clinic: The patient is instructed to follow-up with me 1 week post-operatively Sachin Watts PA-C 11/04/2018 HISTORY AND PHYSICAL Crystal Doug Hauser 1950 REFERRING PHYSICIAN: Self CHIEF COMPLAINT: Recurrent drainage/perianal abscess HPI: The patient is a 68 year old male with a complaint of recurrent perianal abscess. States has had a small lump above the anus for some time since scratching this site, but over the last couple of months has become irritating and intermittently drains small amount of bloody fluid. Denies fever or chills. Denies history of diabetes. Patient notes he had a colonoscopy last year by Dr. Campo which was unremarkable. ? The patient was seen by his primary care physician and was started on oral antibiotics. He continues to have drainage from the site and was referred for surgical evaluation. I performed an incision and drainage of the abscess on 10/01/18 and patient initially did well following that procedure. ? Patient presented on 10/21 for recheck, noting he had an episode of loose stools and after that noted some burning/stinging irritation at the site of his prior abscess. He had his look at the area at that time, and she had noted a small opening in the skin. Patient denies any drainage, warmth or swelling but does note this open area is sensitive with loose stools or wiping after a bowel movement. We had discussed observation with plans for possible CT and/or EUA for further evaluation if symptoms persisted. Patient notes he still has an open area which intermittently becomes irritated and painful to sit on. He notes this sometimes fills up and he is able to drain some purulent material after which time symptoms are temporarily relieved. He has been doing sitz baths as instructed. He would like to pursue definitive treatment. ? Patient states he is otherwise in good health. He denies any known cardiac or pulmonary issues. Denies any problems with sedation in the past. PAST MEDICAL HISTORY Diagnosis Date - Kidney stones - Other and unspecified hyperlipidemia PAST SURGICAL HISTORY Procedure Laterality Date - COLONOSCOPY 2017 Current Outpatient Prescriptions: simvastatin (ZOCOR) 40 mg tablet Take 1 tablet by mouth daily at bedtime. multivitamin tablet Take 1 tablet by mouth once daily. No current facility-administered medications for this visit. ALLERGIES: Patient has no known allergies. PERSONAL HISTORY: Social History Marital status: Spouse name: Years of education: Number of children: Social History Main Topics Smoking status: Never Smoker Smokeless tobacco: Never Used Alcohol use: No Drug use: No FAMILY HISTORY: FAMILY HISTORY Problem Relation Age of Onset - Cancer Mother cancer of uncertain primary - Ischemic Heart Disease Father [place] age 75 - Lipids Sister REVIEW OF SYSTEMS GENERAL: No weight loss, malaise or fevers HEENT: Negative for frequent or significant headaches, No changes in hearing or vision, no nose bleeds or other nasal problems NECK: Negative for lumps, goiter, pain and significant neck swelling RESPIRATORY: Negative for cough, hemoptysis, wheezing, COPD, dyspnea or shortness of breath CARDIOVASCULAR: Negative for chest pain, leg swelling, hypertension, CHF or palpitations GI: See HPI SKIN: See HPI PSYCH: Negative for sleep disturbance, mood disorder and recent psychosocial stressors HEMATOLOGY/LYMPHOLOGY: Negative for prolonged bleeding, bruising easily or swollen nodes ENDOCRINE: Negative for cold or heat intolerance, polyuria, polydipsia and goiter PHYSICAL EXAMINATION: General: The patient is 68 year old male, well nourished, well hydrated in no acute distress. The patient is oriented to time, place, and person. VITALS: Blood pressure 138/74, pulse 78, temperature 36.7 ?C (98.1 ?F), temperature source Temporal Artery, resp. rate 18, height 172.7 cm (5' 8), weight 94.6 kg (208 lb 9.6 oz), SpO2 98 %. HEENT: Normal cephalic, ataumatic, pupils are equally round, sclera are anicteric, mucous membranes are moist, oropharynx is clear. Neck has no masses, asymmetry or lymphadenopathy. Respiratory: Clear to auscultation and percussion. Normal respiratory excursion and pattern. Cardiac: Examination is regular rate and rhythm. Normal S1/S2 Abdominal exam: Soft, nontender, with no palpable masses. No hepatosplenomegaly. No palpable hernias. Rectal exam: exam deferred Extremities: no clubbing, cyanosis or edema. No adenopathy. Other: On examination, a pinpoint opening is again noted superior to the anus with yellow drainage present and some thickening of skin with tenderness between the draining sinus and the anus. 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 Diallo, who also participated in development of the following plan. He plans to perform Examination under Anesthesia with possible fistulotomy. Consent: The proposed procedure, risks, benefits, and alternatives were discussed with the patient in detail. All the patient's questions were answered, and the patient voiced understanding. The patient desires to proceed with surgery. Diagnoses: (K61.0) Perianal abscess (primary encounter diagnosis) Return to Clinic: The patient is instructed to follow-up with me 1 week post-operatively Sachin Watts PA-C I have reviewed the above history and physical exam. There have been no significant changes Lenny Diallo MD 11/04/2018 Encounter Status:Closed by SACHIN WATTS PA-C on 11/04/18 ORTHOPEDIC VISIT Observed: 10/22/2018 Status: F Source: [facility] [place] REPORT 3:42 PM [facility] REPOSITORY [facility] [address] [place] [address] OFFICE VISIT Date of Service: 10/22/18 MR#: [id number] Acct: [id number] Name: CRYSTAL HAUSER Rep #: [id number] : 1950 Provider: HECTOR Morrow Age/Sex: 68/M [place] [facility] [place]: Signed Intake Vital Signs10/22/18 Body Mass Index (BMI) 32.1 10/08/18 Body Mass Index (BMI) 32.1 Intake Visit Reasons: FU ER WRIST SPRAIN Allergies No Known Allergies Allergy (Unverified 08/19/18 08:58) Medications coenzyme Q 10 10 mg capsule 10 mg PO ONCE 08/19/18 [History Confirmed 10/07/18] glucosamine HCl 1,500 mg tablet 1,500 mg PO DAILY 08/19/18 [History Confirmed 10/07/18] simvastatin 40 mg tablet 40 mg PO QHS 08/19/18 [History Confirmed 10/07/18] Ascorbic Acid [Vitamin C] mg PO DAILY 10/07/18 [History] Ibuprofen 600 mg PO 4X/DAY PRN #20 tab 10/07/18 [Rx] PFSH Social History Smoking Status: Never smoker [facility] ER WRIST SPRAIN: Details: CRYSTAL HAUSER is a 68 year old M here today for ED f/u on right wrist injury. He has had right wrist pain on and off for a long time. He had pain that seemed worse but went bowling and hoped it would help. But his pain got so bad he ended up in the ED due to inability to move it or use and was unable to sleep due to the pain. Denies numbness, tingling or other associated symptoms. They gave him some nsaids and he had good relief as well as a splint for the wrist. He has very little pain today and has been able to return to all normal activities. He has been work on rom and has not returned to bowling. Ortho Exam Right Wrist/Hand Skin/Wound: No Swelling, No Ecchymosis Contralateral Normal: Yes Right Wrist: Yes ROM-Extension 0-60, ROM-Flexion 0-80, ROM- Pronation 0-80 and ROM-Supination 0-90; no TTP Fracture site, Snuffbox tenderness, Durken's Test or Nanette's Test Motor: EPL: 5, FDP-2: 5 Sensation: Radial: I, Ulnar: I, Median: I WRIST: Patient has no evident abnormalities on inspection of the wrist. He has no localized or generalized swelling or other skin changes. He has full range of motion and normal strength of the wrist as well as the fingers. He has normal sensation throughout the extremity indicating intact median and ulnar nerve. Patient does appear to have some minor localized tenderness just distal to the ulnar styloid around the TFCC region. He has no other pains over the carpal bones. He has no signs of de Quervain's. He has no signs of carpal tunnel. Left Wrist/Hand Skin/Wound: No Swelling, No Ecchymosis Assessment AND Plan Problems 1. Injury of triangular fibrocartilage complex (TFCC) of right wrist, initial encounter S69.81XA Plan I did review patient's x-rays that he had in the emergency room which did not show any acute abnormalities. appears to be some calcifications within the fibrocartilage disc of the distal ulna or possibly adjacent ligamentous structures. This does correspond with where his tenderness is located. There is no noted clicking or popping to indicate obvious tear. He has seen improvement with rest, ice, and anti-inflammatories. At this time patient states he is going to wait 1 more week before returning to bowling and other activities just to make sure as he states he feels almost 90% back to normal. He can continue to ice and take anti-inflammatories as needed and wear the wrist splint if rest as needed. We discussed further treatment options which include possible injection and/or occupational therapy if he has continued pains or problems. He will notify of any continued issues or any new concerns or complaints. This note was generated with Metrilusation software. It may contain incorrect words, spelling, and punctuation that were not noted in checking the note before signing. Coding Level of Care Code Off vis,est,level 3 Diagnoses Injury of triangular fibrocartilage complex (TFCC) of right wrist, initial encounter S69.81XA Encounter type: initial encounter 10/22/18 1542 <Electronically signed by Lenard YOUNG> Date Lenard YOUNG Cosigner Signature: Date (if applicable) CC: PROGRESS Observed: 10/21/2018 Status: COMPLETED Source: [place] 10:23 PM [facility] REPOSITORY O ID: [id number] Author: Sachin Watts (Pa) Service: (none) Author Type: Physician Pastry Finisher Type: Progress Notes Filed: 10/21/2018 10:28 PM Note Text: FOLLOW UP VISIT - ABSCESS NAME: Crystal Hauser [facility] NO.: [id number] DATE OF SERVICE: 10/21/2018 : 1950 REFERRING PHYSICIAN: Chaparro Sánchez MD Crystal is a patient I am following for a perianal abscess. I performed an incision and drainage of the abscess on 10/01/18. The patient notes no complaints of fever since the procedure. He notes no further drainage. Patient concerned as a few days ago, he had an episode of loose stools and after that noted some burning/stinging irritation at the site of his prior abscess. He had his look at the area, and she had noted a small opening in the skin. Patient denies any drainage, warmth or swelling but does note this open area is sensitive with loose stools or wiping after a bowel movement. VITALS: There were no vitals taken for this visit. On examination, a pinpoint opening is noted with no drainage or signs of fistula tract currently, and no erythema or fluctuance Assessment IMPRESSION: Status post incision and drainage of perianal abscess, delayed wound healing PLAN: I have reviewed my findings with Dr. Diallo -Continue sitz baths twice daily -May use dibucaine ointment (available topically) on open area until healed -Return if symptoms not resolving in the next 2 months. If symptoms persist would plan for CT scan and/or EUA for further evaluation Patient verbalized understanding of all above and agreed with the plan Diagnoses: (K61.0) Perianal abscess (primary encounter diagnosis) Sachin Watts PA-C CNOV Observed: 10/21/2018 Status: COMPLETED Source: [place] 2:30 PM [facility] REPOSITORY Office Visit (GENSWS) CRYSTAL HAUSER ([id number]) 1950 M Date Time Provider Department 10/21/18 2:30 PM SACHIN WATTS) TORY During your visit today, we recorded the following information about you: Sachin Watts PA-C 10/21/2018 3:05 PM Signed -Continue sitz baths twice daily -May use dibucaine ointment (available topically) on open area until healed -Return if symptoms not resolving in the next 2 months Sachin Watts PA-C 10/21/2018 10:28 PM Signed FOLLOW UP VISIT - ABSCESS NAME: Crystal Hauser CLINIC NO.: [id number] DATE OF SERVICE: 10/21/2018 : 1950 REFERRING PHYSICIAN: Chaparro Sánchez MD Crystal is a patient I am following for a perianal abscess. I performed an incision and drainage of the abscess on 10/01/18. The patient notes no complaints of fever since the procedure. He notes no further drainage. Patient concerned as a few days ago, he had an episode of loose stools and after that noted some burning/stinging irritation at the site of his prior abscess. He had his look at the area, and she had noted a small opening in the skin. Patient denies any drainage, warmth or swelling but does note this open area is sensitive with loose stools or wiping after a bowel movement. VITALS: There were no vitals taken for this visit. On examination, a pinpoint opening is noted with no drainage or signs of fistula tract currently, and no erythema or fluctuance Assessment IMPRESSION: Status post incision and drainage of perianal abscess, delayed wound healing PLAN: I have reviewed my findings with Dr. Diallo -Continue sitz baths twice daily -May use dibucaine ointment (available topically) on open area until healed -Return if symptoms not resolving in the next 2 months. If symptoms persist would plan for CT scan and/or EUA for further evaluation Patient verbalized understanding of all above and agreed with the plan Diagnoses: (K61.0) Perianal abscess (primary encounter diagnosis) Sachin Watts PA-C Referring Provider: SELF [200] Allergies As of Date: 10/21/2018 (No Known Allergies) Date Reviewed: 10/21/2018 Reviewed by: Momo Alvarez LPN - Fully Assessed Reason for Visit: Established Patient [175] Cmt: pain s/p perirectal abscess Primary Visit Diagnosis:Perianal abscess [K61.0] Prescriptions as of 10/21/2018 Sig: IBUPROFEN 600 MG TABLET 4 TIMES DAILY PRN For Pain MULTIVITAMIN TABLET Take 1 tablet by mouth once d* SIMVASTATIN 40 MG TABLET Take 1 tablet by mouth daily * Problem List As Of Date 10/21/2018 Noted Resolved HYPERLIPIDEMIA NEC/NOS [E78.5] SCREENING MAL NEOP-PROSTATE [Z12.5] INVALID FOR* Obesity [E66.9] INVALID FOR* Other instructions from your clinician: -Continue sitz baths twice daily -May use dibucaine ointment (available topically) on open area until healed -Return if symptoms not resolving in the next 2 months Follow-up and Disposition History Recorded Encounter Status:Closed by SACHIN WATTS PA-C on 10/21/18 PROGRESS Observed: 10/08/2018 Status: COMPLETED Source: [place] 8:59 PM [facility] REPOSITORY HNO ID: [id number] Author: Sachin Watts (Pa) Service: (none) Author Type: Physician Pastry Finisher Type: Progress Notes Filed: 10/08/2018 9:02 PM Note Text: FOLLOW UP VISIT - ABSCESS NAME: Crystalleandra Hauser [facility] NO.: [id number] DATE OF SERVICE: 10/08/2018 : 1950 REFERRING PHYSICIAN: Chaparro Sánchez MD Crystal is a patient I am following for a perianal abscess. I performed an incision and drainage of the abscess on 10/01/18. The patient notes no complaints of fever since the procedure. Pain has been minimal to none, and he notes no further drainage. VITALS: There were no vitals taken for this visit. On examination, the incision site is nicely healed with no drainage or signs of fistula tract Assessment IMPRESSION: Status post incision and drainage of perianal abscess PLAN: If there are any problems or signs of recurrent abscess, the patient is to contact me immediately. Diagnoses: (K61.0) Perianal abscess (primary encounter diagnosis) Return to Clinic: The patient is instructed to follow- up with me as needed. Sachin Watts PA-C CNOV Observed: 10/08/2018 Status: COMPLETED Source: [place] 3:00 PM [facility] REPOSITORY Office Visit (GENSWS) JOSEPHLUCIANON Doug ([id number]) 1950 Date Time Provider Department 10/08/18 3:00 PM SACHIN WATTS (PA) During your visit today, we recorded the following information about you: Sachin Watts PA-C 10/08/2018 3:26 PM Signed -Follow up as needed Sachin Watts PA-C 10/08/2018 9:02 PM Signed FOLLOW UP VISIT - ABSCESS NAME: Crystal Hauser CLINIC NO.: [id number] DATE OF SERVICE: 10/08/2018 : 1950 REFERRING PHYSICIAN: Chaparro Sánchez MD Crystal is a patient I am following for a perianal abscess. I performed an incision and drainage of the abscess on 10/01/18. The patient notes no complaints of fever since the procedure. Pain has been minimal to none, and he notes no further drainage. VITALS: There were no vitals taken for this visit. On examination, the incision site is nicely healed with no drainage or signs of fistula tract Assessment IMPRESSION: Status post incision and drainage of perianal abscess PLAN: If there are any problems or signs of recurrent abscess, the patient is to contact me immediately. Diagnoses: (K61.0) Perianal abscess (primary encounter diagnosis) Return to Clinic: The patient is instructed to follow- up with me as needed. Sachin Watts PA-C Referring Provider: CHAPARRO SÁNCHEZ [[id number]] Allergies As of Date: 10/08/2018 (No Known Allergies) Date Reviewed: 10/08/2018 Reviewed by: Sachin Watts (Pa) - Fully Assessed Reason for Visit: Post Op [174] Cmt: Post op Perirectal abscess Primary Visit Diagnosis:Perianal abscess [K61.0] Prescriptions as of 10/08/2018 Sig: IBUPROFEN 600 MG TABLET 4 TIMES DAILY PRN For Pain MULTIVITAMIN TABLET Take 1 tablet by mouth once d* SIMVASTATIN 40 MG TABLET Take 1 tablet by mouth daily * Problem List As Of Date 10/08/2018 Noted Resolved HYPERLIPIDEMIA NEC/NOS [E78.5] SCREENING MAL NEOP-PROSTATE [Z12.5] INVALID FOR* Obesity [E66.9] INVALID FOR* Other instructions from your clinician: -Follow up as needed Encounter Status:Closed by SACHIN WATTS PA-C on 10/08/18 EMERGENCY DEPARTMENT Observed: 10/07/2018 Status: F Source: [place] SUMMARY 5:15 AM [facility] REPOSITORY [facility] Medical Records Department [address] [place] [address] Emergency Department Summary 10/07/18 0500 MR#: [id number] Acct: [id number] Name: CRYSTAL HAUSER Rep #: [id number] : 1950 68 From: Luis Fay PCP: Chaparro Sánchez MD Status: REG ER - ER Visit Summary Date of Service: 10/07/18 Chief Complaint: Right wrist pain History of Present Illness: The patient is a 68 M nontraumatic increasing right wrist pain since this morning. States mild symptoms this morning. States went bowling this evening after returning home was worsening. 2 Tylenol was taken with no relief. No history of gastric ulcers or kidney injury. Recently saw Dr. Perales for meniscus injury. No previous similar symptoms in the past. Physical Examination: General: Alert and oriented 3, no acute distress HEENT: Normocephalic, atraumatic. Moist mucosa membranes Neck: supple, nontender. Cardiovascular: Regular rate and rhythm, no murmurs Respiratory: Normal breath sounds, symmetric, no distress Abdomen: Soft, nontender, nondistended Extremities: Right upper extremity: No elbow pain. Reproducible right wrist pain along the ulnar styloid distally along the ulnar aspect. Negative axial load of the TFCC. Reproducible pain with forced radial deviation. No snuffbox tenderness. Skin intact. No erythema. Neuro: no focal neurological deficits. Test Results: Right wrist x-ray: Calcification of the TFCC possible CPPD or pseudogout. Emergency Department Course and Treatment: Nontraumatic wrist pain baseline x-ray reviewed calcium deposits in the TFCC.. She would Motrin and reevaluation had some improving symptoms. No tenderness with axial load of TFCC. This likely sprain of ligaments on the ulnar aspect. Wrist splint provided for comfort. He will wear at night. Continue short-term Motrin as needed. He will follow-up with orthopedics for reevaluation symptoms not improved. In addition request PCP follow-up due to recently hearing his current PCP having health issues. Follow-up was given. Treatment Plan: [] Disposition: Discharge Impression: Right wrist sprain This note was generated with LifePics dictation software. It may contain incorrect words, spelling, and punctuation that were not noted in review of the chart prior to signing ED Disposition - Plan for ED Patient: Disposition: Home or Assisted Living Chief Complaint: Upper Extremity Injury Diagnosis: Right wrist sprain Instructions: ED Sprain Wrist Prescriptions: Ibuprofen 600 mg PO 4X/DAY PRN #20 tablet PRN Reason: Pain Referrals: Irena Fenton DO [STAFF PHYSICIAN] - 3-5 Days if not improving Rebecca Tapia DO [STAFF PHYSICIAN] - Additional Instructions: Calcium buildup at the [facility]. Take anti-inflammatories as needed. Keep wrist splint for comfort. Follow-up with Dr. Fenton What to do if you have Problems For any increased pain, shortness of breath, bleeding, nausea or vomiting, chest pain, or any unexpected problems, contact your Primary Care Provider. Call [facility] ([phone]) or report to the closest Emergency Room. Call 911 if necessary. 10/07/18 0515 <Electronically signed by Luis Fay> Date Luis Fay Cosigner Signature (If Indicated): Date CC: Chaparro Sánchez MD WRIST MIN 3 VIEWS Observed: 10/07/2018 Status: F Source: [place] 4:27 AM [facility] REPOSITORY [facility] Imaging Services [address] [place], [place] [address] [address] Wrist min 3 Views MR#: [id number] Acct: [id number] Name: CRYSTAL HAUSER Rep #: [id number] : 1950 M 68 From: Lenard Wolf MD PCP: Chaparro Sánchez MD Status: REG ER Study: Wrist min 3 Views Date of Exam: 10/07/18 Exam# [id number] Ordering Dr: Luis Lane DO HISTORY: C/O RT MEDIAL WRIST PAIN. NKI. WOKE UP THIS AM WITH THE PAIN COMPARISON: None FINDINGS: XR right Wrist 3 Views: No fracture, dislocation, or bony abnormality. Joint spaces appear preserved. No bony erosions. Localized soft tissue calcification bordering the ulnar styloid process in the region of the triangular fibrocartilage. This pattern may be seen with CPPD/pseudogout. RAD/Wrist min 3 Views IMPRESSION: Soft tissue calcification at the ulnar right wrist and this may be seen with CPPD/pseudogout. Otherwise negative exam. at 0458 Reported and signed by: Lenard Wolf MD Electronically Signed: Lenard Wolf, at 4:56 EST Tel , Service support , CC: Chaparro Sánchez MD; Luis Lane Folder Taper Operator: Signed PT D/C SUMMARY (1) Observed: 10/04/2018 Status: F Source: [place] 11:40 AM [facility] REPOSITORY [facility] Physical Therapy [address] [place] [address] Fax REHABILITATION SERVICES DISCHARGE SUMMARY MR#: [id number] Acct: [id number] Name: CRYSTAL HAUSER Rep #: [id number] : 1950 68 From: Kvng García PT, ATC Referring DrCarrington: Irena Fenton DO Status: REG RCR Insurance: MEDICARE PART A B AARP HP - PT D/C Summary It has been my pleasure to treat CRYSTAL HAUSER under orders from Irena Fenton DO, for the diagnosis of R medial meniscal tear for a total of 2 visit(s). Discharge Date: Please see the following information for a summary of their discharge status. - Subjective Subjective: Pt reports he is painfree and ready fouzia discharge - Pain R knee Pain Intensity (Out of 10): 0 - Objective Objective/Function: R knee pain 0/10. R knee MMT: 5/5 throughout. ROM: 0-125. Pt is I with HEP and has achieved all Rx goals - Goals Goal 1:: Pt will be I with HEP Goal Progress: Goal Met - Plan Plan: Discharge - D/C Information If there are questions or concerns regarding this patient's physical therapy, please feel free to call me at [phone]. Thank you for the referral of this patient. Sincerely, Kvng García PT, <Electronically signed by Kvng García PT, ATC> 10/04/18 1140 CC: Irena Fenton DO; Chaparro Sánchez MD [facility] Signed PT D/C SUMMARY (1) Observed: 10/04/2018 Status: F Source: [place] 11:27 AM [facility] REPOSITORY [facility] Physical Therapy [facility] [address] [place] [address] Fax REHABILITATION SERVICES DISCHARGE SUMMARY MR#: [id number] Acct: [id number] Name: CRYSTAL HAUSER Rep #: [id number] : 1950 68 From: Kvng García PT, ATC Referring Dr.: Irena Fenton DO Status: REG RCR Insurance: MEDICARE PART A B AARP HP - PT D/C Summary It has been my pleasure to treat CRYSTAL HAUSER under orders from Irena Fenton DO, for the diagnosis of R medial meniscal tear for a total of 1 visit(s). Discharge Date: Please see the following information for a summary of their discharge status. - Pain R knee Pain Intensity (Out of 10): 0 - Goals Goal 1:: Pt will be I with HEP - Plan Plan: I issued a HEP consisting of knee flex, ext, hip abd and add, squats, and HR 15x2 ea with BTB. F/U or DC in 3 weeks - D/C Information If there are questions or concerns regarding this patient's physical therapy, please feel free to call me at [phone]. Thank you for the referral of this patient. Sincerely, Kvng García, PT, <Electronically signed by Kvng García PT, ATC> 10/04/18 1127 CC: Irena Fenton DO; Chaparro Sánchez MD [facility] Signed PROGRESS Observed: 10/01/2018 Status: COMPLETED Source: [place] 9:51 PM [facility] REPOSITORY HNO ID: [id number] Author: Sachin Watts (Pa) Service: (none) Author Type: Physician Pastry Finisher Type: Progress Notes Filed: 10/05/2018 5:29 PM Note Text: HISTORY AND PHYSICAL Crystal Hauser 1950 REFERRING PHYSICIAN: Chaparro Sánchez MD CHIEF COMPLAINT: Perianal abscess HPI: Crystal is a 68 year old male with a complaint of a perianal abscess. States has had a small lump there for some time, but over the last 2 months has become irritating and intermittently drains small amount of bloody fluid. Denies fever or chills. Denies history of diabetes. Patient notes he had a colonoscopy last year by Dr. Campo which was unremarkable. The patient was seen by his primary care physician and was started on oral antibiotics. He continues to have drainage from the site and is referred for surgical evaluation SIGNIFICANT MEDICAL PROBLEMS: PAST MEDICAL HISTORY Diagnosis Date - Kidney stones - Other and unspecified hyperlipidemia OPERATIONS: PAST SURGICAL HISTORY Procedure Laterality Date - COLONOSCOPY 2017 CURRENT MEDICATIONS: Current Outpatient Prescriptions: simvastatin (ZOCOR) 40 mg tablet Take 1 tablet by mouth daily at bedtime. Disp: 90 tablet Rfl: 0 multivitamin tablet Take 1 tablet by mouth once daily. Disp: Rfl: 0 No current facility-administered medications for this visit. ALLERGIES: Patient has no known allergies. PERSONAL HISTORY: Social History Marital status: Spouse name: Years of education: Number of children: Social History Main Topics Smoking status: Never Smoker Smokeless tobacco: Never Used Alcohol use: No Drug use: No FAMILY HISTORY: FAMILY HISTORY Problem Relation Age of Onset - Cancer Mother cancer of uncertain primary - Ischemic Heart Disease Father [place] age 75 - Lipids Sister REVIEW OF SYSTEMS GENERAL: No weight loss, malaise or fevers GI: Negative for abdominal discomfort, blood in stools or black stools, change in bowel habit, diarrhea, history of Crohn's or ulcerative colitis MUSCULOSKELETAL: Negative for joint pain or swelling, back pain or muscle pain PHYSICAL EXAMINATION: General: The patient is 68 year old male, well nourished, well hydrated in no acute distress. The patient is oriented to time, place, and person. VITALS: There were no vitals taken for this visit. There is no height or weight on file to calculate BMI. Extremities: no clubbing, cyanosis or edema. No adenopathy. Other: perianal Abscess - a 1 cm x 1cm nodule with small draining sinus and minimal erythema, to left of anus. The skin overlying the point of maximal fluctance is viable. LABORATORY VALUES: As Noted RADIOLOGIC STUDIES: As Noted PROCEDURE: INCISION AND DRAINAGE OF perianal ABSCESS Epic down at time of procedure-printed hard copy consent form was signed prior to procedure and scanned into [facility]. After consent was obtained and the site, person, and procedure verified, the patient`s skin was prepped and draped in the usual fashion. A combination of Lidocaine and Marcaine was injected into the skin. A linear incision was made over the point of maximal fluctuance. A minimal amount of purulent material and bloody fluid were drained. The abscess was then unroofed. The cavity was packed with plain gauze. The patient tolerated the procedure well. Assessment IMPRESSION: STATUS POST INCISION AND DRAINAGE OF perianal ABSCESS PLAN: Crystal is instructed to remove packing tomorrow and cover with bandaid. If the dressing becomes soaked or had significant drainage, the dressing should be changed. If there is minor bleeding from this skin edge, the patient should hold pressure on the incision. If there is continued bleeding, the patient should contact our office immediately. The patient should wash the wound with gentle soap and water. he may shower. The wound should not be immersed in a pool, bathtub, or even hot tub. Diagnoses: (K61.0) Perianal abscess (primary encounter diagnosis) Return to Clinic: The patient is instructed to follow-up with me in one week. RAEHL Yan Observed: 10/01/2018 Status: COMPLETED Source: [place] 2:00 PM [facility] REPOSITORY Office Visit (GENSWS) CRYSTAL HAUSER ([id number]) 1950 M Date Time Provider Department 10/01/18 2:00 PM SACHIN WATTS) GENCANDICES During your visit today, we recorded the following information about you: Sachin Watts PA-C 10/01/2018 3:19 PM Signed The following instructions are important for you related to your office visit today with the [facility]. Instructions After PERIRECTAL ABSCESS DRAINAGE There may be some bleeding as the packing is removed. This may be controlled with direct pressure. The redness and swelling and discomfort should decrease after drainage of your abscess. If the redness, swelling, or discomfort increase or you start having high fevers, contact our office immediately. Once the packing has been removed, you should start performing sitz baths. For sitz baths-draw for 10 five inches of lukewarm bath water and soak for approximately 10 minutes. You may add epsom salts or other agents to the water. Stool softeners and dibucaine ointment or other over the counter anal pain medications will help with the discomfort of bowel movements. I do not recommend anal preparations with steroids (most ointments with HC in the name) after abscess drainage. Follow up with Sachin Watts PA-C in 1 week for wound check If you note any additional difficulties, questions, or concerns, you should contact our office immediately @ [phone] and ask to be transferred to the General Surgery department. Sachin Watts PA-C 10/05/2018 5:29 PM Signed HISTORY AND PHYSICAL Crystal Hauser 1950 REFERRING PHYSICIAN: Chaparro Sánchez MD CHIEF COMPLAINT: Perianal abscess HPI: Crystal is a 68 year old male with a complaint of a perianal abscess. States has had a small lump there for some time, but over the last 2 months has become irritating and intermittently drains small amount of bloody fluid. Denies fever or chills. Denies history of diabetes. Patient notes he had a colonoscopy last year by Dr. Campo which was unremarkable. The patient was seen by his primary care physician and was started on oral antibiotics. He continues to have drainage from the site and is referred for surgical evaluation SIGNIFICANT MEDICAL PROBLEMS: PAST MEDICAL HISTORY Diagnosis Date - Kidney stones - Other and unspecified hyperlipidemia OPERATIONS: PAST SURGICAL HISTORY Procedure Laterality Date - COLONOSCOPY 2017 CURRENT MEDICATIONS: Current Outpatient Prescriptions: simvastatin (ZOCOR) 40 mg tablet Take 1 tablet by mouth daily at bedtime. Disp: 90 tablet Rfl: 0 multivitamin tablet Take 1 tablet by mouth once daily. Disp: Rfl: 0 No current facility-administered medications for this visit. ALLERGIES: Patient has no known allergies. PERSONAL HISTORY: Social History Marital status: Spouse name: Years of education: Number of children: Social History Main Topics Smoking status: Never Smoker Smokeless tobacco: Never Used Alcohol use: No Drug use: No FAMILY HISTORY: FAMILY HISTORY Problem Relation Age of Onset - Cancer Mother cancer of uncertain primary - Ischemic Heart Disease Father RI age 75 - Lipids Sister REVIEW OF SYSTEMS GENERAL: No weight loss, malaise or fevers GI: Negative for abdominal discomfort, blood in stools or black stools, change in bowel habit, diarrhea, history of Crohn's or ulcerative colitis MUSCULOSKELETAL: Negative for joint pain or swelling, back pain or muscle pain PHYSICAL EXAMINATION: General: The patient is 68 year old male, well nourished, well hydrated in no acute distress. The patient is oriented to time, place, and person. VITALS: There were no vitals taken for this visit. There is no height or weight on file to calculate BMI. Extremities: no clubbing, cyanosis or edema. No adenopathy. Other: perianal Abscess - a 1 cm x 1cm nodule with small draining sinus and minimal erythema, to left of anus. The skin overlying the point of maximal fluctance is viable. LABORATORY VALUES: As Noted RADIOLOGIC STUDIES: As Noted PROCEDURE: INCISION AND DRAINAGE OF perianal ABSCESS Epic down at time of procedure-printed hard copy consent form was signed prior to procedure and scanned into [facility]. After consent was obtained and the site, person, and procedure verified, the patient`s skin was prepped and draped in the usual fashion. A combination of Lidocaine and Marcaine was injected into the skin. A linear incision was made over the point of maximal fluctuance. A minimal amount of purulent material and bloody fluid were drained. The abscess was then unroofed. The cavity was packed with plain gauze. The patient tolerated the procedure well. Assessment IMPRESSION: STATUS POST INCISION AND DRAINAGE OF perianal ABSCESS PLAN: Crystal is instructed to remove packing tomorrow and cover with bandaid. If the dressing becomes soaked or had significant drainage, the dressing should be changed. If there is minor bleeding from this skin edge, the patient should hold pressure on the incision. If there is continued bleeding, the patient should contact our office immediately. The patient should wash the wound with gentle soap and water. he may shower. The wound should not be immersed in a pool, bathtub, or even hot tub. Diagnoses: (K61.0) Perianal abscess (primary encounter diagnosis) Return to Clinic: The patient is instructed to follow-up with me in one week. Sachin Watts PA-C Referring Provider: CHAPARRO SÁNCHEZ [[id number]] Allergies As of Date: 10/01/2018 (No Known Allergies) Date Reviewed: 10/01/2018 Reviewed by: Sachin Watts (Pa) - Fully Assessed Reason for Visit: Consult [173] Cmt: Consult perirectal abscess Primary Visit Diagnosis:Perianal abscess [K61.0] Prescriptions as of 10/01/2018 Sig: SIMVASTATIN 40 MG TABLET Take 1 tablet by mouth daily * MULTIVITAMIN TABLET Take 1 tablet by mouth once d* Problem List As Of Date 10/01/2018 Noted Resolved HYPERLIPIDEMIA NEC/NOS [E78.5] SCREENING MAL NEOP-PROSTATE [Z12.5] INVALID FOR* Obesity [E66.9] INVALID FOR* Other instructions from your clinician: The following instructions are important for you related to your office visit today with the [facility] General Surgeons. Instructions After PERIRECTAL ABSCESS DRAINAGE There may be some bleeding as the packing is removed. This may be controlled with direct pressure. The redness and swelling and discomfort should decrease after drainage of your abscess. If the redness, swelling, or discomfort increase or you start having high fevers, contact our office immediately. Once the packing has been removed, you should start performing sitz baths. For sitz baths-draw for 10 five inches of lukewarm bath water and soak for approximately 10 minutes. You may add epsom salts or other agents to the water. Stool softeners and dibucaine ointment or other over the counter anal pain medications will help with the discomfort of bowel movements. I do not recommend anal preparations with steroids (most ointments with HC in the name) after abscess drainage. Follow up with Sachin Watts PA-C in 1 week for wound check If you note any additional difficulties, questions, or concerns, you should contact our office immediately @ [phone] and ask to be transferred to the General Surgery department. Encounter Status:Closed by SACHIN WATTS PA-C on 10/05/18 INITAL EVALUATION (1) Observed: 09/13/2018 Status: F Source: [place] - PT 11:09 AM [facility] REPOSITORY [facility] Physical Therapy [facility] [address] [place] [address]. [address] [place], [place] [address] Fax REHABILITATION SERVICES INITIAL EVALUATION MR#: [id number] Acct: [id number] Name: CRYSTAL HAUSER Rep #: [id number] : 1950 68 From: Kvng García PT, ATC Referring Dr.: Irena Fenton DO Status: REG RCR Insurance: MEDICARE PART A B [facility] Patient's Visit Information CRYSTAL HAUSER is a 68 year old M referred to Physical Therapy by Irena Fenton DO with a diagnosis of R medial meniscal tear. Date of Evaluation: 09/13/18 Physical Therapist: Kvng García PT, - Visit Plan Frequency: 1x/Week Duration: 2 Weeks Plan: I issued a HEP consisting of knee flex, ext, hip abd and add, squats, and HR 15x2 ea with BTB. F/U or DC in 3 weeks - Subjective Subjective: Pt reports his R knee has been sore for 4 months. Pain had an insidious onset in nature. Pt reports his R knee never gives out, locks up, or clicks. Pt denies PMHx. Pt reports he had xrays performed which revealed degenerative changes. 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 Pt reports he has no functional limitations with the exception of prolonged walking. No sleep difficulty secondary to pain. pain is 0/10 at rest, 5/10 at worst. Pt denies T or N at this time. Pt reports his goal is to get some ex's to perform at home. - Pain R knee Pain Intensity (Out of 10): 0 Pain Intensity Range: 5 - Objective Neuro: B LE sensation is WNL to light touch. B achilles reflex= 1/3. Girth at joint line: R knee 36 cm, L knee 35 cm. ROM: L knee 0-125, R knee 0-108. MMT: B LE's 5/5 throughout. Special tests: pos mcmurrays sign - Goals Goal 1:: Pt will be I with HEP Goal Time Frame: 1 Week - Rehabilitation Potential Physical Therapy Diagnosis: R knee pain and limitations with prolonged ambulation secondary to deg changes Rehabilitation Potential: Good - Anticipated Interventions Patient/Client Instruction: Educate patient on: Condition, Plan of Care For the Purpose of:: To improve self management Therapeutic Exercise to Include: Strength training For the Purpose of:: To decrease pain, To increase ROM, To improve muscle performance and motor function Cryotherapy (ice pack, ice massage): Yes For the Purpose of:: To decrease pain, To increase ROM, To improve muscle performance and motor function Thank you for the opportunity to evaluate your patient. For Medicare and Medicare HMO plans, please review the plan of care and approve it. It will need to be FAXED BACK to us at [phone] for Medicare purposes. Please let me know if there are questions or concerns regarding this plan of care. Physician Signature: Date: <Electronically signed by Kvng García PT, ATC> 09/13/18 1109 CC: Irena Fenton DO; Chaparro Sánchez MD [facility] Signed For Medicare only, by signing this I certify the plan of care. Physicians Signature Date ORTHOPEDIC VISIT Observed: 08/19/2018 Status: F Source: [place] REPORT 11:38 AM [facility] REPOSITORY [facility] Orthopaedics AND Sports Medicine [facility] [address] [place] [address] OFFICE VISIT Date of Service: 08/19/18 MR#: [id number] Acct: [id number] Name: CRYSTAL HAUSER Rep #: [id number] : 1950 Provider: Irena Fenton DO Age/Sex: 68/M Location: [facility] [place] [facility] [place] [place] Status: Signed Intake Vital Signs08/19/18 Height 5 ft 8 in 08/19/18 Weight: 208 lb 08/19/18 Body Mass Index (BMI) 31.6 Intake Visit Reasons: RIGHT KNEE Is patient in pain?: Yes Pain scale (1-10): 3 Allergies No Known Allergies Allergy (Unverified 08/19/18 08:58) Medications coenzyme Q 10 10 mg capsule 10 mg PO ONCE 08/19/18 [History Confirmed 08/19/18] glucosamine HCl 1,500 mg tablet 1,500 mg PO DAILY 08/19/18 [History Confirmed 08/19/18] simvastatin 40 mg tablet 40 mg PO QHS 08/19/18 [History Confirmed 08/19/18] HPI RIGHT KNEE: Details: CRYSTAL HAUSER is a 68 year old M here today for right knee pain. Patient has had right knee pain for about 5 months. He states his knee improved and then started bothering him again recently. He denies any known injury. Patient complains of medial knee pain. He denies any popping, clicking or grinding. Patient denies any knee swelling. He has increased pain with ambulation. Patient has used a cane for a few days to help. Patient denies any bracing. He has used aleve for pain. Patient denies any injections, physical therapy, xray or MRI. ROS Const Reports system reviewed and no additional complaints, except as docu Eyes Reports system reviewed and no additional complaints, except as docu ENT Reports system reviewed and no additional complaints, except as docu Card Reports system reviewed and no additional complaints, except as docu Resp Reports system reviewed and no additional complaints, except as docu GI Reports system reviewed and no additional complaints, except as docu Reports system reviewed and no additional complaints, except as docu Musc Reports joint pain Skin/Breast Reports system reviewed and no additional complaints, except as docu Neuro Yes system reviewed and no additional complaints, except as docu Psych Reports system reviewed and no additional complaints, except as docu Endo Reports system reviewed and no additional complaints, except as docu Ortho Exam Right Knee Skin/Wound: Yes CDI Contralateral Normal: Yes Swelling: No Homans Sign: No Knee ROM: Yes ROM-Extension -20 to 0, Yes ROM-Flexion 0-140 Examination: Yes Med jt line tenderness, Yes Pain with flexion Quad Atrophy: No Stability: NML: Anterior Drawer, NML: Valgus 30 Assessment AND Plan 1. 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 X-rays were reviewed. There is no obvious fracture, dislocation, or lucency noted. Educated on the anatomy of the knee and etiology of his pain. Explained that he has signs of degenerative meniscus tear. His treatment options are do nothing, injection, PT/HEP for strengthening, gel injection or brace. Explained that the small tears cause inflammation and synovitis, steroid injection today will aid in inflammation relief. If all the conservative options fail we will order an MRI to eval for possible knee arthroscopy. Follow up in 6-8wks or as needed or sooner if pain, swelling, numbness or associated symptoms, or concerns develop. All questions answered. Patient in agreement of plan. 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 08/19/18 1138 <Electronically signed by Irena Fenton DO> Date Irena Fenton DO Cosigner Signature: Date (if applicable) CC: KNEE 4 OR MORE Observed: 08/19/2018 Status: F Source: [place] VIEWS 9:07 AM [facility] REPOSITORY [facility] Imaging Services [address] [place] [address] Knee 4 or More Views MR#: [id number] Acct: [id number] Name: CRYSTAL HAUSER Rep #: [id number] : 1950 M 68 From: Philip Silva MD PCP: Chaparro Sánchez MD Status: REG CLI Study: Knee 4 or More Views Date of Exam: 08/19/18 Exam# [id number] Ordering Dr: Irena Fenton DO STUDY: X-RAY - RIGHT KNEE REASON FOR EXAM: Pain. TECHNIQUE: 4 view(s) of the knee. COMPARISON: None. FINDINGS: Normal visualized distal femur. Normal visualized proximal tibia and fibula. Normal proximal tibiofibular articulation. Normal medial femorotibial compartment. Normal lateral femorotibial compartment. Normal patellofemoral articulation. There is an enthesophyte at the superior pole of the patella. RAD/Knee 4 or More Views IMPRESSION: Patellar enthesopathy. Otherwise, unremarkable x-ray examination of the right knee. 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, [address] T4 FREE DIRECT Collected: 07/09/2018 Status: F Source: [place] 11:29 AM [facility] REPOSITORY TYPE CODE TESTS RESULT OUT OF RANGE REFERENCE UNITS LAB L506.0400 0.76-1.46 ng/dL Normal T4 FREE 0.81 DIRECT Performed By: #### L501.9520, L506.0400 #### [facility] [address] [place], [address] ALLERGIES ALLERGIES DATE TYPE / CODE NAME / CODE REACTION SEVERITY SOURCE 11/05/2018 Drug No Known Unknown [facility] Allergy/416 Allergies/Z38479 Hospital 390034(SNOM 0388(RXNORM) Repository ED CT) Drug NO KNOWN [facility] Class/34168 ALLERGIES [place] 1003(SNOMED Repository CT) ENCOUNTERS ENCOUNTERS ADMIT/DISCHARGE ACCOUNT ADMITTING ENCOUNTER LOCATION SOURCE NUMBER CLASS 11/15/2018/11/16/19 [id number] Ambulatory [address] Repository 11/08/2018/11/08/19 [id number] Ambulatory [address] ing:SDCRoom: Repository AC14 11/03/2018/11/05/19 [id number] Ambulatory [address] Repository 10/22/2018/10/22/20 [id number] Ambulatory BMSBuilding:B [place] [address] [facility] Repository 10/21/2018/10/25/20 [id number] Ambulatory [address] Repository 10/08/2018/10/11/20 [id number] Ambulatory [address] Repository 10/07/2018/10/07/20 [id number] Emergency [address] ing:ED Repository 10/04/2018/10/04/20 [id number] Ambulatory [address] ing:PT Repository 10/01/2018/10/06/20 [id number] Ambulatory [address] Repository 08/19/2018 [id number] Ambulatory [facility] ing:HPRAD Repository 08/19/2018/08/19/20 [id number] Ambulatory BMSBuilding:B [place] 18 [facility] Repository 07/09/2018 [id number] Ambulatory [place] [facility] ing:BFHLAB Repository 04/15/2018 [id number] Ambulatory BMSBuilding:B [place] [facility] Repository 04/02/2018 [id number] Ambulatory BMSBuilding:B [place] [facility] Repository PAYERS PAYERS ENCOUNTER GUARANTOR PAYER SUBSCRIBER SOURCE 11/08/2018 CRYSTAL JOY Primary CRYSTAL AUSTINB: [place] CR Insurance:MEDICARE [id number] [address] [address]Txh: Number: Repository [id number] () Date:2018-11-03 11/08/2018 Secondary CRYSTALLeandra AUSTINB: [place] Insurance:AARolicy [id number] Community Number: Hospital [id number] Repository Date:4979-51-58NB [facility] 423[place], [place] [address]CH: 11/08/2018 Tertiary NOT GIVENUNK [place] Insurance:SELF PAY [facility] Number: Effective Repository Date:2018-11-03 10/22/2018 CRYSTAL JOY Primary CRYSTAL AUSTINB: [place] CR Insurance:MEDICARE [id number] [address] [address]Sxz: Number: Repository [id number] () Date:2018-10-08 10/22/2018 Secondary CRYSTALLeandra AUSTINB: [place] Insurance:AARPPolicy [id number] Community Number: [facility] [id number] Repository Date:4082-50-91AZ [facility] [place], [place] [address]IY: 10/22/2018 Tertiary NOT GIVENUNK [place] Insurance:SELF PAY [facility] Number: Effective Repository Date:2018-10-11 10/07/2018 Crystal Polanco Primary Crystal Shawna: [place], Insurance:MEDICARE [id number] Community [place] [id number]: PART A [facility] Number: Repository () [id number] Date:2018-10-07 10/07/2018 Secondary Crystal Shawna: [place] Insurance:AARPPolicy [id number] Community Number: Hospital [id number] Repository Date:3428-91-23MH [facility] [id number], [place] [address]HN: 10/07/2018 Tertiary NOT GIVENUNK [place] Insurance:SELF PAY Community [facility] Number: Effective Repository Date:2018-10-07 10/04/2018 Crystal Polanco Primary Crystal LeidyB: [place] Rosalio, Insurance:MEDICARE [id number] [facility] [place] [address]Icd: PART A [facility] Number: Repository () [id number] Date:2017-06-26 10/04/2018 Secondary Crystal Shawna: [place] Insurance:AARPPolicy [id number] Community Number: Hospital [id number] Repository Date:6848-28-42HE [facility] [id number], [place] [address]KE: 10/04/2018 Tertiary NOT GIVENUNK [place] Insurance:SELF PAY Community [facility] Number: Effective Repository Date:2018-09-03 08/19/2018 Crystal Polanco Primary Crystal LeidyB: [place], Insurance:MEDICARE [id number] [facility] [place] [address]Ghk: PART A [facility] Number: Repository () [id number] Date:2018-08-19 08/19/2018 Secondary Crystalleandra Matos: [place] Insurance:AARPPolicy [id number] Community Number: Hospital [id number] Repository Date:8955-39-03PB [facility] [id number], [place] [address]AO: 08/19/2018 Tertiary NOT GIVENUNK [place] Insurance:SELF PAY Community [facility] Number: Effective Repository Date:2018-08-19 08/19/2018 Crystal Polanco Primary Crystal Shawna: [place], Insurance:MEDICARE [id number] [facility] [place] [address]Fyx: PART A [facility] Number: Repository () [id number] Date:2018-07-26 08/19/2018 Secondary Crystalleandra Matos: [place] Insurance:AARPPolicy [id number] Community Number: Hospital [id number] Repository Date:2168-68-79XN [facility] [id number], [place] [address]OL: 08/19/2018 Tertiary NOT GIVENUNK [place] Insurance:SELF PAY [facility] Number: Effective Repository Date:2018-08-19 07/09/2018 Crystalleandra Polanco Primary Crystalleandra Matos: [place], Insurance:MEDICARE [id number] [facility] [id number]: PART A [facility] Number: Repository () [id number] Date:2018-07-09 07/09/2018 Secondary Crystalleandra Matos: [place] Insurance:AARPPolicy [id number] Community Number: Hospital [id number] Repository Date:3120-01-07OV [facility] [id number], [place] [address]RT: 07/09/2018 Tertiary NOT GIVENUNK [place] Insurance:SELF PAY [facility] Number: Effective Repository Date:2018-07-09 04/15/2018 Crystal Polanco Primary Crystal LeidyB: [place], Insurance:MEDICARE [id number] [facility] [place] [address]Nok: PART A [facility] [phone] Number: Repository 2 (HP) [id number] Date:2018-04-08 04/15/2018 Secondary Crystalleandra Matos: [place] Insurance:AARPPolicy [id number] Community Number: Hospital [id number] Repository Date:0916-34-96KM [facility] 256002OVAJIID, [place] [address]ZO: 04/15/2018 Tertiary NOT GIVENUNK [place] Insurance:SELF PAY [facility] Number: Effective Repository Date:2018-04-08 04/02/2018 Crystalleandra Polanco Primary Crystal Shawna: [place] [facility], Insurance:MEDICARE [id number] [facility] [id number]: PART A [facility] [phone] Number: Repository 2 HP) [id number] Date:2018-03-16 04/02/2018 Secondary Crystalleandra Matos: [place] Insurance:AARPPolicy [id number] [facility] Number: [facility] [id number] Repository Date:2916-07-13RA [facility] [id number], [place] [address]CR: 04/02/2018 Tertiary NOT GIVENUNK [place] Insurance:SELF PAY [facility] Number: Effective Repository Date:2018-03-16
== END 2018-10-07 05:23 | disposition home or self-care (01) ==
PROVIDERS: Emergency Provider Emergency Medicine; Family Provider Family Medicine; PCP Family Medicine
DX: S63.501A Unspecified sprain of right wrist, initial encounter (principal); E78.00 Pure hypercholesterolemia, unspecified; Z79.899 Other long term (current) drug therapy; X50.0XXA Overexertion from strenuous movement or load, initial encounter; Y93.54 Activity, bowling; Y92.39 Other specified sports and athletic area as the place of occurrence of the external cause; Y99.8 Other external cause status
CPT/HCPCS: 73110; 99283

== ENCOUNTER 2018-11-08 12:03 | Day surgery (SDC) | payer MEDICARE, OTHER, SELFPAY ==
[2018-10-22 14:26] VITALS: BMI 32.1
--- NOTE | 2018-11-08 | FIST_PTH ---
PATIENT: CRYSTAL RUIZ LOC: [facility] – [place] U#:[id number] AGE/SX: 68/M ROOM: RE11/08/[address]: Dr. Lenny Page MD : [id number] BED: DIS: 11/08/2018 SPEC #: [id number] RECD: 11/09/18 07:35 STATUS: PAWAN BRITNEY #: [id number] NELDA: 11/08/18 00:[address]: Lenny Page DEPT: SURGICAL PATHOLOGY RECD BY: Oracio Mcintosh ENTERED: 11/09/18 11:18 SP TYPE: Fistula OTHR DR: Dr. Chaparro Sánchez MD Tissues: Anal region Procedures: Surgery Specimen Level III HEADER OPERATION: EUA, fistulotomy, anal PRE-OP DIAGNOSIS: Recurrent drainage/perianal abscess TISSUE SUBMITTED: Anal fistula MICROSCOPIC DIAGNOSIS Anal fistula: Pieces of skin with underlying tissue including skeletal muscle tissue with chronic inflammation and hyperkeratosis, clinically anal fistula. SJ:malissa 11/10/18 MICROSCOPIC DESCRIPTION Slides are reviewed. GROSS DESCRIPTION Received in fixative is one container labeled with the patient's name and designated anal fistula. The specimen consists of two pieces of pink, congested soft tissue that in aggregate measure 4 x 1.5 x 1.5 cm. Sections do not reveal any mass lesion. The specimen is totally submitted in one cassette. / JOVANA:malissa 11/09/18 TC:5 CPT: 43369
[2018-11-08 12:22] VITALS: BP 144/77; PULSE 77; RESP 16; TEMP 36.8; O2SAT 95; BMI 31.5
[2018-11-08] MEDS: Bupivacaine Mpf 0.5% 30 ML VIAL (15:15)
[2018-11-08] MEDS: Dibucaine 30 GM Tube 1 APPLIC (17:43)
--- NOTE | 2018-11-08 17:57 | OP.PCM_ITS ---
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 Sign in was performed verifying patient, site, procedure, position, and DVT prophylaxis with SCDs. Clindamycin 900mg Following induction of general anesthetic. The patient was transferred to supine position to the prone jackknife position with care being taken to avoid pressure points. The patient?s perineal area was then prepped and draped in the usual fashion. Timeout was performed verifying patient, site, procedure, and position. External examination demonstrated a sinus in the left posterior lateral position, approximate 4 cm from anal verge without significant inflammation By digital exam revealed no obvious palpable abnormalities. Anoscopy was performed which demonstrated a normal appearing dentate line. Hydration peroxide was injected into the sinus. This seemed to track along the subcutaneous tissues right to the area of the dentate line, as expected, following Goodsall?s rule. A fistula probe was then placed into the track. the track was high over the posterior sphincter necessitating plan for seton placement. The external fistula opening was excised circumferentially and the track was opened. Excess tissue was excised and hemostasis obtained with electrocautery.as dissection was continued approaching the external sphincter, the fistula track was excised with the deeper sphincter leaving at least half of the sphincter complex superficially intact. The mucosa was excised off the sphincter complex and a pack of 0 silk ties as a seton were placed around the superficial sphincter. With good hemostasis, half percent Marcaine was injected in the perianal skin and dibucaine impregnated Gelfoam was placed in the anal canal. iodinated quarter inch gauze was placed into the external defect. A dressing was applied and mesh pants were used to hold the dressing in place. The patient was returned to the supine position and extubated and brought to recovery room in stable condition. - Admit VTE Documentation VTE Present on Admission: No VTE Mechan Device Prophylaxis: SCD's
[2018-11-08 18:04] VITALS: BP 138/80; BP 144/77; PULSE 109; RESP 16; TEMP 36.1; O2SAT 94
[2018-11-08 18:15] VITALS: BP 109/62; BP 144/77; PULSE 88; RESP 16; O2SAT 95
[2018-11-08 18:30] VITALS: BP 113/64; BP 144/77; PULSE 67; RESP 18; O2SAT 92
[2018-11-08 18:36] VITALS: BP 122/65; BP 144/77; PULSE 82; RESP 16; TEMP 36.7; O2SAT 97
--- NOTE | 2018-11-08 18:57 | DCINST_ITS ---
Discharge Diet: No Restrictions Discharge Activity: Return to Normal Activity, May Not Drive - while taking narcotic pain medications. Additional Activity Instructions:: Do not drive or work with heavy equipment or sign legal documents for 24 hours. Be aware that pain medications may cause nausea. You should typically eat light foods as you take your pain medications. Pain medications may also cause constipation, if you have difficulty with this please discuss with your doctor. Additional Dressing/Incision Instructions:: Leave the operative bandage on for 2 days. If a local anesthetic plug was placed in the anal area, try not to expel for 24-48 hours. Remove anal packing tomorrow. Place dibucaine ointment on the perianal area as needed. Sitz baths twice daily and after bowel movements. Allergies/Adverse Reactions: Allergies No Known Allergies Allergy (Verified 11/05/18 08:13) Medications to take at Discharge coenzyme Q 10 10 mg capsule 10 mg PO ONCE 08/19/18 simvastatin 40 mg tablet 40 mg PO QHS 08/19/18 Ascorbic Acid [Vitamin C] 500 mg PO DAILY 10/07/18 Multivitamin [Daily Multiple Vitamin] 1 each PO DAILY 11/05/18 Dibucaine [Nupercainal] 56.7 gm [place] PRN PRN #2 oint...g. 11/08/18 Oxycodone HCl/Acetaminophen [Percocet 5/325] 1 tab PO Q6H PRN PRN 7 Days #18 tab 11/08/18 The following prescriptions were given: Oxycodone HCl/Acetaminophen [Percocet 5/325] 1 tab PO Q6H PRN PRN 7 Days #18 tab PRN Reason: Pain Dibucaine [Nupercainal] 56.7 gm [place] PRN PRN #2 oint...g. PRN Reason: Pain Primary Care Physician: Chaparro Sánchez MD [Primary Care Provider] - Test Results: Test results from this visit will be discussed in further detail at your follow- up appointment, if applicable. Please Follow Up With: Lenny Page MD - [phone] When: Plan to have a follow up approximately 14 days after surgery. Please Follow Up With: Maryan Watts PA-C When: follow up in 7 days
[2018-11-08 19:22] VITALS: BP 144/77
== END 2018-11-08 19:26 | disposition home or self-care (01) ==
LOC: SDC 12:05 → AC 12:05
PROVIDERS: Family Provider Family Medicine; PCP Family Medicine; Referring Provider Surgery; Visit Provider Surgery
PROC: (CPT 46020; principal; 2018-11-08 13:35)
DX: K60.3 Anal fistula (principal); E78.5 Hyperlipidemia, unspecified; Z87.442 Personal history of urinary calculi; Z79.899 Other long term (current) drug therapy
CPT/HCPCS: 00902; 46020; 46270; 88304; J7120; J2405

== ENCOUNTER → 2018-12-22 09:24 | Outpatient (CLI) | payer MEDICARE, OTHER, SELFPAY ==
[2018-12-22 13:21] LABS: ALB/GLOB Ratio 0.9 RATIO (0.9-2.4); AST(SGOT) 23 U/L (15-37); Alanine Aminotransfer ALT/SGPT 30 U/L (16-61); Albumin, Serum 3.5 g/dL (3.2-5.0); Alkaline Phosphatase 81 U/L (45-117); Anion Gap 9 (5-15); BUN 18 mg/dL (7-18); BUN/Creat Ratio 18.6 RATIO (10-20); Calcium,Total 8.3 mg/dL (8.5-10.1); Chloride 110 mmol/L (98-107); Cholesterol 198 mg/dL (200); Creatinine, Serum 0.97 mg/dL (0.70-1.30); EST Glomerular Filtration Rate 82 mL/min (>60); Est Glom Filt Rate - Afr Amer 100 mL/min (>60); Globulin 3.9 g/dL (2.2-4.2); Glucose 95 mg/dL (74-106); High Density Lipoprotein 58 mg/dL; Potassium 4.2 mmol/L (3.5-5.1); Protein, Total 7.4 g/dL (6.4-8.2); Sodium Level 143 mmol/L (136-145); T4 Free Direct 0.79 ng/dL (0.76-1.46); Thyroid Stim Hormone (TSH) 8.69 uIU/mL (0.358-3.74); Triglycerides 95 mg/dL; Very Low Density Lipoprotein 19 mg/dL (5-40)
== END ==
PROVIDERS: Family Provider Family Medicine; PCP Family Medicine; Visit Provider Family Medicine
DX: E03.9 Hypothyroidism, unspecified (principal); E78.00 Pure hypercholesterolemia, unspecified
CPT/HCPCS: 36415; 80053; 80061; 84439; 84443

== ENCOUNTER → 2019-02-17 | Outpatient (CLI) | payer MEDICARE, OTHER, SELFPAY ==
--- NOTE | 2019-02-17 12:30 | RAD_ITS ---
STUDY: X-RAY - SACRUM/COCCYX REASON FOR EXAM: Male, 68 years old. Pain after a fall TECHNIQUE: 3 view(s) of the sacrum and coccyx were obtained. COMPARISON: None. FINDINGS: Normal bilateral sacroiliac joints. Normal visualized sacral ala and fused sacral bodies. Normal sacrococcygeal junction with a normal angulation. Normal coccygeal segments. The presacral soft tissue structures are unremarkable. RAD/Sacrum-Coccyx min 2 Views IMPRESSION: Normal x-rays of the sacrum and coccyx. Electronically Signed: Hamilton Ruffin MD at 13:26 EDT , Service support ,
== END | disposition home or self-care (01) ==
LOC: LAB 12:15 → RAD 12:21
PROVIDERS: Family Provider Family Medicine; PCP Family Medicine; Referring Provider Family Medicine; Visit Provider Family Medicine
DX: M53.3 Sacrococcygeal disorders, not elsewhere classified (principal)
CPT/HCPCS: 72220

== ENCOUNTER → 2019-08-12 | Outpatient (CLI) | payer MEDICARE, OTHER, SELFPAY ==
[2019-08-12 16:50] LABS: Anion Gap 6 (5-15); BUN 14 mg/dL (7-18); BUN/Creat Ratio 16.2 RATIO (10-20); Calcium,Total 8.6 mg/dL (8.5-10.1); Chloride 110 mmol/L (98-107); Creatinine, Serum 0.86 mg/dL (0.70-1.30); EST Glomerular Filtration Rate 94 mL/min (>60); Est Glom Filt Rate - Afr Amer 114 mL/min (>60); Glucose 75 mg/dL (74-106); Potassium 3.9 mmol/L (3.5-5.1); Sodium Level 142 mmol/L (136-145); T4 Free Direct 1.08 ng/dL (0.76-1.46); Thyroid Stim Hormone (TSH) 2.47 uIU/mL (0.358-3.74)
== END | disposition home or self-care (01) ==
LOC: BFHLAB 14:23
PROVIDERS: Family Provider Family Medicine; PCP Family Medicine; Visit Provider Family Medicine
DX: E03.9 Hypothyroidism, unspecified (principal)
CPT/HCPCS: 36415; 80048; 84439; 84443

== ENCOUNTER → 2019-09-29 12:29 | Outpatient (CLI) | payer MEDICARE, OTHER, SELFPAY ==
--- NOTE | 2019-09-29 12:35 | RAD_ITS ---
HISTORY: CHRONIC PAIN ADDITIONAL HISTORY: None provided. TECHNIQUE: Right shoulder 4 views Number of images including paperwork: 4 COMPARISON: None FINDINGS: BONES: No acute fracture. JOINTS: No subluxation. Moderate to severe degenerative changes of the acromioclavicular joint. Mild to moderate degenerative changes of the glenohumeral joint. SOFT TISSUES: No distinct foreign body. RAD/Shoulder min 2 Views IMPRESSION: Degenerative changes without acute osseous abnormality. at 2334 Reported and signed by: Jamaica Light MD Electronically Signed: Jamaica Light MD at 23:34 EST Tel , Service support ,
== END ==
PROVIDERS: Family Provider Family Medicine; PCP Family Medicine; Referring Provider Family Medicine; Visit Provider Family Medicine
DX: M25.511 Pain in right shoulder (principal)
CPT/HCPCS: 73030

== ENCOUNTER → 2020-01-09 | Outpatient (CLI) | payer MEDICARE, OTHER, SELFPAY ==
[2020-01-09 10:12] VITALS: BMI 31.5
--- NOTE | 2020-01-09 10:21 | RAD_ITS ---
STUDY: X-RAY - RIGHT SHOULDER REASON FOR EXAM: Male, 69 years old. Shoulder pain; partial series was done in September, doctor ordered grashey view only today TECHNIQUE: 1 view(s) of the shoulder. COMPARISON: September 29, 2019 FINDINGS: There are mild degenerative changes of the glenohumeral articulation. There are moderate degenerative changes of the acromioclavicular joint. Normal acromion. Normal humeral head and visualized proximal humerus. The soft tissue structures are unremarkable. Normal visualized pulmonary apex. RAD/Shoulder One View IMPRESSION: Degenerative changes. Electronically Signed: Sameera Paulson MD at 23:16 EDT Tel , Service support ,
== END | disposition home or self-care (01) ==
LOC: HPRAD 10:21
PROVIDERS: PCP Family Medicine; Referring Provider Orthopaedic Surgery; Visit Provider Orthopaedic Surgery
DX: M25.511 Pain in right shoulder (principal)
CPT/HCPCS: 73020

== ENCOUNTER 2020-01-11 10:20 | Outpatient (RCR) | payer MEDICARE, OTHER, SELFPAY ==
[2020-01-09 10:12] VITALS: BMI 31.5
--- NOTE | 2020-01-11 11:59 | HP.PTEVAL_ITS ---
Patient's Visit Information CRYSTAL Doug RUIZ is a 69 year old M referred to Physical Therapy by Momo Eckert DO with a diagnosis of Right Shoulder Pain. 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 did have a bone spur on the left but the massage therapist was able to get it to go away. He sees her 1x a month still. He had a cortisone injection in September which did not help. Dr. Baca did x-rays. He has minimal pain and wants to have a HEP. Pain is located in the anterior shoulder no radiating pain. Right hand dominate. Worst: 2/10 Best: 0/10 Agg: getting up in the AM, arm to the side. Describes the pain as dull and achy. Always feels better after bowling and movement. 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 No neck pain, dizziness or GRIFFITHS. Feels that he is better but its still there. Sees his massage therapist 1x a month. PMHx/Meds: see list - Objective Posture: FH, RS- can correct with verbal cues. Gait: no deviation noted. Palpation: tender along bicipital groove. ROM: WFL in all planes with pain in IR. Strength: Scap: fair plus, Shoulder: 4+/5 in all ranges- no pain with testing. Elbow/wrist/hand: 5/5. Special Test: Impingment Neer: positive Kulkarni Jose: negative, Empty Can: negative - Goals Goal 1:: Patient will be I with HEP and progression Goal Time Frame: 4-6 Weeks - Rehabilitation Potential Physical Therapy Diagnosis: Patient presents with hypomobility- he has decreased strength and muscular endurance leading to increased pain with ADL's. Rehabilitation Potential: Good - Anticipated Interventions Patient/Client Instruction: Educate patient on: Benefits of Fitness Program Therapeutic Exercise to Include: Strength training, Endurance training, Body mechanics, Postural training, Scapular Strength/Stabilization For the Purpose of:: To improve muscle performance and motor function Thank you for the opportunity to evaluate your patient. For Medicare and Medicare HMO plans, please review the plan of care and approve it. It will need to be FAXED BACK to us at [phone] for Medicare purposes. For Medicare only, by signing this I certify the plan of care. Please let me know if there are questions or concerns regarding this plan of care. Physician Signature: Date:
--- NOTE | 2020-03-06 10:34 | HP.PT.NRP ---
CRYSTAL RUIZ was seen in my office for initial evaluation on 01/11/20. The following Plan of Care was established for this patient: Initial Frequency: 1x/Week Initial Duration: 1 Week Patient/Client Instruction: Educate patient on: Benefits of Fitness Program Therapeutic Exercise to Include: Strength training, Endurance training, Body mechanics, Postural training, Scapular Strength/Stabilization For the Purpose of:: To improve muscle performance and motor function This patient was last seen in our office . Pertinent comments regarding their Physical therapy will appear below: At this point I will be discontinuing this patient from physical therapy. I would be happy to see this patient again in the future if found appropriate by the physician. Thank you! MARTITA ObrienT
== END 2020-01-11 19:00 | disposition home or self-care (01) ==
LOC: PT 10:20
PROVIDERS: PCP Family Medicine; Referring Provider Orthopaedic Surgery; Visit Provider Orthopaedic Surgery
DX: M25.811 Other specified joint disorders, right shoulder (principal); M19.011 Primary osteoarthritis, right shoulder
CPT/HCPCS: 97110; 97161

== ENCOUNTER → 2020-07-27 | Outpatient (CLI) | payer MEDICARE, OTHER, SELFPAY ==
[2020-01-09 10:12] VITALS: BMI 31.5
[2020-07-27 15:43] LABS: Anion Gap 5 (5-15); BUN 15 mg/dL (7-18); Calcium,Total 9.1 mg/dL (8.5-10.1); Chloride 109 mmol/L (98-107); EST Glomerular Filtration Rate 79 mL/min (>60); Est Glom Filt Rate - Afr Amer 96 mL/min (>60); Glucose 93 mg/dL (74-106); Potassium 3.9 mmol/L (3.5-5.1); Sodium Level 139 mmol/L (136-145); Thyroid Stim Hormone (TSH) 3.37 uIU/mL (0.358-3.74)
== END | disposition home or self-care (01) ==
LOC: BFHLAB 11:14
PROVIDERS: PCP Family Medicine; Visit Provider Family Medicine
DX: E03.9 Hypothyroidism, unspecified (principal)
CPT/HCPCS: 36415; 80048; 84443

== ENCOUNTER → 2020-12-18 09:10 | Outpatient (CLI) | payer MEDICARE, OTHER, SELFPAY ==
[2020-11-26 09:26] VITALS: BMI 30.9
[2020-12-18 12:52] LABS: Absolute Lymphocyte Count 2.52 X10^3/uL (0.83-4.51); Basophil# 0.05 X10^3/uL; Basophil% 0.8 % (0-1); Eosinophil# 0.12 X10^3/uL; Eosinophils% 1.9 % (0-5); Hematocrit 45.2 % (40-54); Hemoglobin 14.8 g/dL (13.0-16.5); Lymphocyte # 2.52 X10^3/ul (4.0); Lymphocyte % 39.2 % (19-41); Mean Corp Hgb Conc 32.7 g/dL (32-36); Mean Corpuscular Hgb 31.5 pg (27.0-32.0); Mean Corpuscular Volume 96.2 fL (80-94); Mean Platelet Vol. 11.1 fl (6.2-12.0); Monocyte# 0.71 X10^3/uL; NRBC Flagged by Analyzer 0 % (0-5); Neutrophil # 3.02 X10^3/uL (2.7-7.7); Neutrophil % 46.9 % (47-70); Platelet Count 210 K/mm3 (150-450); RBC Distribution Width CV 13.2 % (11.6-14.6); RBC Distribution Width SD 46.5 fl (35.1-43.9); White Blood Count 6.4 K/mm3 (4.4-11.0)
[2020-12-18 13:04] LABS: ALB/GLOB Ratio 0.9 RATIO (0.9-2.4); AST(SGOT) 18 U/L (15-37); Alanine Aminotransfer ALT/SGPT 25 U/L (16-61); Albumin, Serum 3.5 g/dL (3.2-5.0); Alkaline Phosphatase 74 U/L (45-117); Anion Gap 4 (5-15); BUN 16 mg/dL (7-18); BUN/Creat Ratio 15.5 RATIO (10-20); Calcium,Total 8.6 mg/dL (8.5-10.1); Chloride 109 mmol/L (98-107); Cholesterol 165 mg/dL (200); Creatinine, Serum 1.03 mg/dL (0.70-1.30); EST Glomerular Filtration Rate 76 mL/min (>60); Est Glom Filt Rate - Afr Amer 92 mL/min (>60); Free T3 2.8 pg/mL (2.18-3.98); Globulin 3.9 g/dL (2.2-4.2); Glucose 89 mg/dL (74-106); High Density Lipoprotein 53 mg/dL; Protein, Total 7.4 g/dL (6.4-8.2); Sodium Level 141 mmol/L (136-145); Thyroid Stim Hormone (TSH) 4.18 uIU/mL (0.358-3.74); Triglycerides 85 mg/dL; Very Low Density Lipoprotein 17 mg/dL (5-40)
[2020-12-20 16:09] LABS: Thyroid Peroxidase AB 167 IU/mL (0-34)
[2020-12-20 16:17] LABS: Thyroglobulin Antibody < 1.0 IU/mL (0.0-0.9)
== END ==
PROVIDERS: PCP Internal Medicine; Referring Provider Internal Medicine; Visit Provider Internal Medicine
DX: E03.9 Hypothyroidism, unspecified (principal); E78.5 Hyperlipidemia, unspecified
CPT/HCPCS: 36415; 80053; 80061; 84439; 84443; 84481; 85025; 86376; 86800

== ENCOUNTER → 2021-06-11 10:42 | Outpatient (CLI) | payer MEDICARE, OTHER, SELFPAY ==
[2021-06-11 09:49] VITALS: BMI 31.5
[2021-06-11 12:19] LABS: Free T3 2.9 pg/mL (2.18-3.98); T4 Free Direct 0.98 ng/dL (0.76-1.46); Thyroid Stim Hormone (TSH) 4.34 uIU/mL (0.358-3.74)
== END ==
PROVIDERS: PCP Internal Medicine; Referring Provider Internal Medicine; Visit Provider Internal Medicine
DX: E03.9 Hypothyroidism, unspecified (principal); Z12.5 Encounter for screening for malignant neoplasm of prostate
CPT/HCPCS: 36415; 84153; 84439; 84443; 84481; G0103

== ENCOUNTER 2022-02-06 14:04 | Outpatient (CLI) | payer MEDICARE, OTHER, SELFPAY ==
[2022-02-06 14:59] LABS: Absolute Neutrophil Count 2.7 X10^3/uL (2.0-7.7); Basophil# 0.04 X10^3/uL; Basophil% 0.7 % (0-1); Eosinophil# 0.13 X10^3/uL; Eosinophils% 2.2 % (0-5); Hematocrit 43.2 % (40-54); Hemoglobin 14.4 g/dL (13.0-16.5); Lymphocyte % 43.1 % (19-41); Mean Corp Hgb Conc 33.3 g/dL (32-36); Mean Corpuscular Hgb 31.6 pg (27.0-32.0); Mean Corpuscular Volume 94.9 fL (80-94); Monocyte# 0.57 X10^3/uL; Monocyte% 9.5 % (0-10); NRBC Flagged by Analyzer 0 % (0-5); Neutrophil # 2.68 X10^3/uL (2.7-7.7); Neutrophil % 44.3 % (47-70); Platelet Count 189 K/mm3 (150-450); RBC Distribution Width CV 13.3 % (11.6-14.6); RBC Distribution Width SD 46.5 fl (35.1-43.9); Red Blood Count 4.55 M/mm3 (4.6-6.2)
[2022-02-06 15:28] LABS: Vitamin D,25 Hydroxy 30.8 ng/mL
[2022-02-06 15:34] LABS: ALB/GLOB Ratio 0.8 RATIO (0.9-2.4); AST(SGOT) 16 U/L (15-37); Alanine Aminotransfer ALT/SGPT 23 U/L (16-61); Albumin, Serum 3.4 g/dL (3.2-5.0); Alkaline Phosphatase 76 U/L (45-117); Anion Gap 7 (5-15); BUN 19 mg/dL (7-18); BUN/Creat Ratio 20.8 RATIO (10-20); Calcium,Total 8.7 mg/dL (8.5-10.1); Chloride 109 mmol/L (98-107); Cholesterol 174 mg/dL (200); Creatinine, Serum 0.91 mg/dL (0.70-1.30); EST Glomerular Filtration Rate 87 mL/min (>60); Est Glom Filt Rate - Afr Amer 106 mL/min (>60); Free T3 2.9 pg/mL (2.18-3.98); Glucose 97 mg/dL (74-106); High Density Lipoprotein 53 mg/dL; Potassium 3.8 mmol/L (3.5-5.1); Protein, Total 7.4 g/dL (6.4-8.2); Sodium Level 141 mmol/L (136-145); T4 Free Direct 1.08 ng/dL (0.76-1.46); Thyroid Stim Hormone (TSH) 2.88 uIU/mL (0.358-3.74); Triglycerides 119 mg/dL; Very Low Density Lipoprotein 24 mg/dL (5-40)
== END 2022-02-06 23:59 | disposition home or self-care (01) ==
LOC: BIMLAB 14:05
PROVIDERS: PCP Internal Medicine; Referring Provider Internal Medicine; Visit Provider Internal Medicine
DX: E55.9 Vitamin D deficiency, unspecified (principal); E03.9 Hypothyroidism, unspecified; E78.5 Hyperlipidemia, unspecified
CPT/HCPCS: 36415; 80053; 80061; 82306; 84439; 84443; 84481; 85025

== ENCOUNTER → 2022-03-21 | Outpatient (CLI) | payer MEDICARE, OTHER, SELFPAY ==
[2022-03-21 12:31] LABS: Absolute Lymphocyte Count 2.46 X10^3/uL (0.83-4.51); Absolute Neutrophil Count 3.2 X10^3/uL (2.0-7.7); Basophil# 0.04 X10^3/uL; Basophil% 0.6 % (0-1); Eosinophil# 0.12 X10^3/uL; Eosinophils% 1.9 % (0-5); Hematocrit 43.8 % (40-54); Hemoglobin 14.7 g/dL (13.0-16.5); Lymphocyte # 2.46 X10^3/ul (0.83-4.51); Lymphocyte % 38.2 % (19-41); Mean Corp Hgb Conc 33.6 g/dL (32-36); Mean Corpuscular Hgb 31.5 pg (27.0-32.0); Mean Corpuscular Volume 93.8 fL (80-94); Mean Platelet Vol. 11.1 fl (6.2-12.0); Monocyte# 0.61 X10^3/uL; Monocyte% 9.5 % (0-10); NRBC Flagged by Analyzer 0 % (0-5); Neutrophil # 3.19 X10^3/uL (2.7-7.7); Neutrophil % 49.5 % (47-70); Platelet Count 204 K/mm3 (150-450); RBC Distribution Width CV 12.8 % (11.6-14.6); RBC Distribution Width SD 43.9 fl (35.1-43.9); Red Blood Count 4.67 M/mm3 (4.6-6.2); White Blood Count 6.4 K/mm3 (4.4-11.0)
== END | disposition home or self-care (01) ==
LOC: BIMLAB 10:31
PROVIDERS: PCP Internal Medicine; Referring Provider Internal Medicine; Visit Provider Internal Medicine
DX: D72.820 Lymphocytosis (symptomatic) (principal)
CPT/HCPCS: 36415; 85025

== ENCOUNTER → 2023-04-06 | Outpatient (CLI) | payer MEDICARE, OTHER, SELFPAY ==
[2023-04-06 12:20] LABS: Absolute Lymphocyte Count 2.77 X10^3/uL (0.83-4.51); Absolute Neutrophil Count 3.3 X10^3/uL (2.0-7.7); Basophil# 0.05 X10^3/uL; Basophil% 0.7 % (0-1); Eosinophil# 0.15 X10^3/uL; Eosinophils% 2.2 % (0-5); Hematocrit 45.8 % (40-54); Lymphocyte # 2.77 X10^3/ul (0.83-4.51); Lymphocyte % 40.1 % (19-41); Mean Corp Hgb Conc 32.8 g/dL (32-36); Mean Corpuscular Hgb 31.8 pg (27.0-32.0); Mean Platelet Vol. 11.4 fl (6.2-12.0); Monocyte# 0.66 X10^3/uL; Monocyte% 9.6 % (0-10); NRBC Flagged by Analyzer 0 % (0-5); Neutrophil # 3.26 X10^3/uL (2.7-7.7); Neutrophil % 47.3 % (47-70); Platelet Count 193 K/mm3 (150-450); RBC Distribution Width CV 12.9 % (11.6-14.6); RBC Distribution Width SD 45.9 fl (35.1-43.9); Red Blood Count 4.72 M/mm3 (4.6-6.2); White Blood Count 6.9 K/mm3 (4.4-11.0)
[2023-04-06 12:52] LABS: Vitamin D,25 Hydroxy 44.1 ng/mL
[2023-04-06 12:55] LABS: ALB/GLOB Ratio 0.8 RATIO (0.9-2.4); AST(SGOT) 16 U/L (15-37); Alanine Aminotransfer ALT/SGPT 18 U/L (16-61); Albumin, Serum 3.3 g/dL (3.2-5.0); Alkaline Phosphatase 67 U/L (45-117); Anion Gap 6 (5-15); BUN 19 mg/dL (7-18); BUN/Creat Ratio 22.2 RATIO (10-20); Calcium,Total 8.6 mg/dL (8.5-10.1); Chloride 109 mmol/L (98-107); Cholesterol 160 mg/dL (200); Creatinine, Serum 0.85 mg/dL (0.70-1.30); EST Glomerular Filtration Rate 94 mL/min (>60); Est Glom Filt Rate - Afr Amer 114 mL/min (>60); Free T3 2.5 pg/mL (2.18-3.98); Globulin 3.9 g/dL (2.2-4.2); Glucose 97 mg/dL (74-106); High Density Lipoprotein 53 mg/dL; PSA,Total - Annual Screen 3.08 ng/mL (0.00-4.00); Potassium 4.1 mmol/L (3.5-5.1); Protein, Total 7.2 g/dL (6.4-8.2); Sodium Level 141 mmol/L (136-145); T4 Free Direct 1.12 ng/dL (0.76-1.46); Thyroid Stim Hormone (TSH) 4.17 uIU/mL (0.358-3.74); Triglycerides 80 mg/dL; Very Low Density Lipoprotein 16 mg/dL (5-40)
== END | disposition home or self-care (01) ==
LOC: BIMLAB 09:06
PROVIDERS: PCP Internal Medicine; Visit Provider Internal Medicine
DX: K40.90 Unilateral inguinal hernia, without obstruction or gangrene, not specified as recurrent (principal); E03.9 Hypothyroidism, unspecified; E78.5 Hyperlipidemia, unspecified; D72.820 Lymphocytosis (symptomatic); Z12.5 Encounter for screening for malignant neoplasm of prostate; E55.9 Vitamin D deficiency, unspecified
CPT/HCPCS: 36415; 80053; 80061; 82306; 84153; 84439; 84443; 84481; 85025; G0103

== ENCOUNTER → 2023-08-17 | Outpatient (CLI) | payer MEDICARE, OTHER, SELFPAY ==
--- NOTE | 2023-08-17 11:50 | RAD_ITS ---
STUDY: X-RAY - LUMBAR SPINE REASON FOR EXAM: Male, 73 years old. Lumbar radiculopathy TECHNIQUE: 2 view(s) of the lumbar spine were obtained. COMPARISON: None FINDINGS: Normal lumbar lordosis. There is no substantial scoliosis. There is a normal alignment of the vertebrae. Normal vertebral bodies and endplates. There is multi-level degenerative disc disease with multi-level disc space narrowing. There is no demonstrated fracture. There is atherosclerotic calcification of the abdominal aorta without a demonstrated aneurysm. RAD/Lumbar Spine 2 or 3 Views IMPRESSION: Degenerative changes of the spine, as detailed above. Electronically Signed: Hamilton Ruffin MD at 12:34 EDT ,
== END | disposition home or self-care (01) ==
LOC: RAD 11:40
PROVIDERS: PCP Internal Medicine; Referring Provider Internal Medicine; Visit Provider Internal Medicine
DX: S39.012A Strain of muscle, fascia and tendon of lower back, initial encounter (principal); M54.16 Radiculopathy, lumbar region; X58.XXXA Exposure to other specified factors, initial encounter
CPT/HCPCS: 72100

== ENCOUNTER 2023-08-19 11:16 | Emergency (ER) | payer MEDICARE, OTHER, SELFPAY ==
[2023-08-19 11:16] VITALS: BP 128/98; PULSE 132; RESP 131; TEMP 36.6; O2SAT 98
--- NOTE | 2023-08-19 11:30 | ED.VIS.LOWEX ---
HPI History of Present Illness HPI Narrative: Patient presents with pain in his left hip that has been getting worse over the past 3-1/2 weeks. Patient states he was working in his garage when he tried to catch something from falling. Patient states that since that time he has had pain in his posterior left hip that radiates into his thigh. Patient describes the pain as sharp. Patient states it is worse with sitting. Patient states he has seen his primary care physician for this. Patient states he has been prescribed Mobic, [place], and Flexeril. Patient has been taking these with minimal relief. Patient denies any bowel or bladder changes. Patient denies any saddle anesthesia. Patient denies any direct trauma to the hip. Patient states she is scheduled for an MRI next week. Chief Complaint: Lower Extremity Injury Informant: patient Onset/Context/Timing Onset: Weeks (3.5) Context: Sudden Onset Timing: Continuous Quality of Pain: Sharp Location: Posterior left hip Worsened by: Sitting Relieved by: Nothing Associated Symptoms Associated Symptoms: Positive for Weakness (Patient states his leg gives out occasionally); Negative for Parasthesia or Loss of Funtion PFSH PFS Medical History Arthritis History of renal stone Hyperlipemia Hypothyroidism Home Medications coenzyme Q10 10 mg capsule 10 mg PO ONCE 08/19/18 [History Last Taken Unknown] multivitamin 1 ea PO DAILY 11/05/18 [History Last Taken Unknown] levothyroxine 88 mcg tablet 88 mcg PO DAILY #90 tabs 01/26/23 [Rx Last Taken Unknown] simvastatin 40 mg tablet 40 mg PO QHS #90 tabs 01/26/23 [Rx Last Taken Unknown] celecoxib 200 mg capsule 200 mg PO DAILY #20 caps 08/13/23 [Rx Last Taken Unknown] cyclobenzaprine 10 mg tablet 10 mg PO TID PRN muscle spasm #20 tabs 08/13/23 [Rx Last Taken Unknown] hydrocodone-acetaminophen 5-325mg 5mg-325mg 1 tab PO Q6H PRN pain 7 days #20 tabs 08/18/23 [Rx Last Taken Unknown] Allergy/AdvReac Type Severity Reaction Status Date / Time No Known Allergies Allergy Verified 08/19/23 11:18 Family History Father Heart disease CVA (cerebral vascular accident) Sister Heart disease Mother Cancer Surgical History history of anual fistula History of cataract extraction History of colonoscopy Social History Smoking Status: Never smoker alcohol intake: never substance use type: does not use what type of physical activity do you 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 ROS ROS ED Constitutional Constitutional ED: Denies chills or fever(s) Eyes Eyes: Denies blurry vision or change in vision ENT ENT ED: Denies rhinorrhea or sore throat Cardiovascular Cardiovascular: Denies chest pain or palpitations Respiratory/Chest Respiratory/Chest: Denies cough or dyspnea Gastrointestinal Gastrointestinal: Denies nausea or vomiting Genitourinary Genitourinary ED: Denies dysuria or hematuria Musculoskeletal Musculoskeletal: Reports back pain; Denies neck pain Integumentary Denies abscess or rash Neurologic Neurologic: Denies headache(s) or weakness Allergic/Immunologic Allergic/Immunologic ED: Denies mouth swelling or urticaria EXAM Physical Exam Const Vital Signs: 08/19/23 11:16 Temperature 98 F Temperature Source Temporal Pulse Rate 132 H Respiratory Rate 131 H Blood Pressure 128/98 H Blood Pressure Mean 108 Pulse Ox 98 Oxygen Delivery Method Room Air Positive well nourished and well developed General Appearance ED: well developed and NAD HEENT Reports moist mucous membranes Neck full ROM and supple Back/Spine Back/Spine Narrative: There is mild tenderness over the left lower lumbar paraspinal muscles and posterior aspect of the left hip. There is no tenderness over the sciatic notch. There is no bony crepitance or step-off. There is no edema or ecchymosis. Range of motion was limited in all motions of the lumbar spine secondary to pain. Straight leg raises were negative bilaterally. Lumbar Spine / Lower Back: straight leg raise negative bilaterally Extremity normal to inspection and full ROM Neuro oriented x3, CN's II-XII intact bilaterally, moves all extremities and no sensory deficits noted Sensorium / Orientation: alert Motor Exam: strength 5/5 throughout Psych mental status grossly normal MDM MDM MDM Narrative Medical decision making narrative: Differential diagnosis includes arthritis, sciatica, and lumbar radiculopathy. Patient was given injection of morphine here. Patient is already scheduled for an MRI. Patient has had x-rays done. I do not feel that repeat x-rays will be of any benefit today. Patient was instructed to continue his pain medications as previously prescribed. Patient was instructed to follow-up with his primary care physician in 5 to 7 days. Patient understood and was agreeable with the plan. All questions were answered. Discharge Plan Triage Chief Complaint: Lower Extremity Injury ED Provider: Gabriel Arreola Dx/Rx/DC Orders Clinical Impression: Lumbar radiculopathy, Low back pain Instructions: ED Pain, Acute, Uncertain Cause Prescriptions: No Action coenzyme Q10 10 mg capsule 10 mg PO ONCE celecoxib 200 mg capsule 200 mg PO DAILY Qty: 20 0RF cyclobenzaprine 10 mg tablet 10 mg PO TID PRN (Reason: muscle spasm) Qty: 20 0RF Rx Instructions: Do not drive or operate equipment when using this medication. hydrocodone-acetaminophen 5-325 mg tablet 1 tab PO Q6H PRN (Reason: pain) 7 Days Qty: 20 0RF multivitamin 1 EACH tablet 1 ea PO DAILY levothyroxine 88 mcg tablet 88 mcg PO DAILY Qty: 90 3RF simvastatin 40 mg tablet 40 mg PO QHS Qty: 90 3RF Primary Care Provider: Dinah Camacho Referrals: Dinah Camacho MD [Primary Care Provider] - 3-5 Days Disposition Disposition: Home, Self Care
[2023-08-19] MEDS: Morphine 4 MG/ML Syringe IM ×2 (12:34→14:30)
[2023-08-19 14:50] VITALS: BP 141/67; PULSE 82; RESP 15; O2SAT 97
== END 2023-08-19 14:51 | disposition home or self-care (01) ==
PROVIDERS: Emergency Provider Emergency Medicine; PCP Internal Medicine; Visit Provider Emergency Medicine
DX: M54.16 Radiculopathy, lumbar region (principal); M25.552 Pain in left hip; E78.5 Hyperlipidemia, unspecified
CPT/HCPCS: 96372; 99282

== ENCOUNTER → 2023-08-24 | Outpatient (CLI) | payer MEDICARE, OTHER, SELFPAY ==
--- NOTE | 2023-08-24 13:15 | MRI_ITS ---
STUDY: MRI LUMBAR SPINE WITHOUT CONTRAST REASON FOR EXAM: Male, 73 years old. Lumbar radiculopathy left, HIP PAIN TECHNIQUE: Standardized fat and water weighted pulse sequences were obtained in the sagittal and axial planes. COMPARISON: X-ray 08/17/2023 FINDINGS: T12-L1: Normal endplates. Normal disc height, hydration and morphology. Normal bilateral facet joints. Normal central canal and bilateral lateral recesses. Normal bilateral intervertebral neural foramina. Normal lumbar lordosis. There is no substantial scoliosis. Normal conus medullaris that terminates at the T12/L1. L1-2: Normal endplates. Normal disc height, hydration and morphology. Normal bilateral facet joints. Normal central canal and bilateral lateral recesses. Normal bilateral intervertebral neural foramina. L2-3: Normal endplates. Normal disc height, hydration and morphology. Normal bilateral facet joints. Normal central canal and bilateral lateral recesses. Normal bilateral intervertebral neural foramina. L3-4: Mild bilateral facet hypertrophy and ligament flavum hypertrophy. Mild broad disc protrusion produces mild spinal stenosis and moderate bilateral neural foraminal stenosis. L4-5: Mild bilateral facet hypertrophy and ligament flavum hypertrophy. 2 mm retrolisthesis of L4 on L5 with a mild broad disc protrusion produces moderate spinal stenosis with moderate bilateral lateral recess stenosis with abutment of the L5 nerve roots bilaterally and moderate bilateral neural foraminal stenosis with abutment of the exiting L4 nerve roots bilaterally. L5-S1: Mild broad disc protrusion produces mild spinal stenosis and mild bilateral neural foraminal stenosis. Normal visualized sacral ala. Normal visualized paraspinous soft tissue structures. MRI/Spine Lumbar (Routine) IMPRESSION: Multilevel degenerative changes, as described above. Electronically Signed: Lenny Pineda MD at 22:05 EDT ,
== END | disposition home or self-care (01) ==
LOC: MRI 12:26
PROVIDERS: PCP Internal Medicine; Referring Provider Internal Medicine; Visit Provider Internal Medicine
DX: M54.16 Radiculopathy, lumbar region (principal)
CPT/HCPCS: 72148

== ENCOUNTER → 2024-04-23 | Outpatient (CLI) | payer MEDICARE, OTHER, SELFPAY ==
[2024-04-23 09:02] LABS: Absolute Lymphocyte Count 2.48 X10^3/uL (0.83-4.51); Absolute Neutrophil Count 3.4 X10^3/uL (2.0-7.7); Basophil# 0.05 X10^3/uL; Basophil% 0.7 % (0-1); Eosinophil# 0.17 X10^3/uL; Eosinophils% 2.5 % (0-5); Hematocrit 43.8 % (40-54); Hemoglobin 14.6 g/dL (13.0-16.5); Lymphocyte # 2.48 X10^3/ul (0.83-4.51); Lymphocyte % 36.8 % (19-41); Mean Corp Hgb Conc 33.3 g/dL (32-36); Mean Corpuscular Hgb 31.4 pg (27.0-32.0); Mean Corpuscular Volume 94.2 fL (80-94); Mean Platelet Vol. 10.4 fl (6.2-12.0); Monocyte# 0.64 X10^3/uL; Monocyte% 9.5 % (0-10); NRBC Flagged by Analyzer 0 % (0-5); Neutrophil # 3.39 X10^3/uL (2.7-7.7); Neutrophil % 50.5 % (47-70); Platelet Count 202 K/mm3 (150-450); RBC Distribution Width CV 13.5 % (11.6-14.6); RBC Distribution Width SD 46.5 fl (35.1-43.9); Red Blood Count 4.65 M/mm3 (4.6-6.2); White Blood Count 6.7 K/mm3 (4.4-11.0)
[2024-04-23 10:07] LABS: ALB/GLOB Ratio 0.8 RATIO (0.9-2.4); AST(SGOT) 17 U/L (15-37); Alanine Aminotransfer ALT/SGPT 24 U/L (16-61); Albumin, Serum 3.3 g/dL (3.2-5.0); Alkaline Phosphatase 84 U/L (45-117); Anion Gap 5 (5-15); BUN 19 mg/dL (7-18); BUN/Creat Ratio 18.3 RATIO (10-20); Calcium,Total 8.8 mg/dL (8.5-10.1); Chloride 110 mmol/L (98-107); Cholesterol 179 mg/dL (200); Creatinine, Serum 1.04 mg/dL (0.70-1.30); EST Glomerular Filtration Rate 75 mL/min (>60); Est Glom Filt Rate - Afr Amer 90 mL/min (>60); Free T3 2.5 pg/mL (2.18-3.98); Globulin 4.1 g/dL (2.2-4.2); Glucose 104 mg/dL (74-106); High Density Lipoprotein 60 mg/dL; PSA,Total - Annual Screen 3.39 ng/mL (0.00-4.00); Protein, Total 7.4 g/dL (6.4-8.2); Sodium Level 140 mmol/L (136-145); T4 Free Direct 1.04 ng/dL (0.76-1.46); Thyroid Stim Hormone (TSH) 4.28 uIU/mL (0.358-3.74); Triglycerides 78 mg/dL; Very Low Density Lipoprotein 16 mg/dL (5-40)
[2024-04-25 08:30] LABS: Vitamin D,25 Hydroxy 30.3 ng/mL
== END | disposition home or self-care (01) ==
LOC: LAB 08:28
PROVIDERS: PCP Internal Medicine; Referring Provider Internal Medicine; Visit Provider Internal Medicine
DX: Z12.5 Encounter for screening for malignant neoplasm of prostate (principal); I10 Essential (primary) hypertension; E78.5 Hyperlipidemia, unspecified; E03.9 Hypothyroidism, unspecified; Z13.220 Encounter for screening for lipoid disorders; E55.9 Vitamin D deficiency, unspecified
CPT/HCPCS: 36415; 80053; 80061; 82306; 84153; 84439; 84443; 84481; 85025; G0103

== ENCOUNTER → 2024-07-21 | Outpatient (CLI) | payer MEDICARE, OTHER, SELFPAY ==
[2024-07-21 11:57] LABS: Free T3 2.8 pg/mL (2.18-3.98); T4 Free Direct 1.08 ng/dL (0.76-1.46)
== END | disposition home or self-care (01) ==
LOC: LAB 09:41
PROVIDERS: PCP Internal Medicine; Referring Provider Internal Medicine; Visit Provider Internal Medicine
DX: E03.9 Hypothyroidism, unspecified (principal)
CPT/HCPCS: 36415; 84439; 84443; 84481

== ENCOUNTER → 2024-10-21 | Outpatient (CLI) | payer MEDICARE, OTHER, SELFPAY ==
[2024-10-21 12:55] LABS: Free T3 2.3 pg/mL (2.18-3.98); T4 Free Direct 1.03 ng/dL (0.76-1.46)
== END | disposition home or self-care (01) ==
LOC: LAB 11:17
PROVIDERS: PCP Internal Medicine; Referring Provider Internal Medicine; Visit Provider Internal Medicine
DX: E03.9 Hypothyroidism, unspecified (principal)
CPT/HCPCS: 36415; 84439; 84443; 84481

== ENCOUNTER 2025-04-08 21:07 | Emergency (ER) | payer MEDICARE, OTHER, SELFPAY ==
[2025-04-08 21:08] VITALS: BP 138/83; PULSE 65; RESP 15; TEMP 36.3; O2SAT 95; BMI 33.5
--- OUTSIDE RECORDS SUMMARY | 2025-04-08 21:29 | XMS RPT_ITS | CCD ---
Author Organization [facility] CliniSyct Care Team Providers Care Mold Shaker Name Role Phone LENNY DIALLO Admitting Unavailable YOEL LENNY T Attending Unavailable CLARITZA, SACHIN (PA) Attending Unavailable ADDYCHAPARRO RUSSO Referring Unavailable CLARITZA, SACHIN (PA) Attending Unavailable ADDY, CHAPARRO MOORE Referring Unavailable CLARITZA, SACHIN (PA) Attending Unavailable CLARITZA, SACHIN (PA) Attending Unavailable CLARITZA, SACHIN (PA) Attending Unavailable ADDYCHAPARRO RUSSO Referring Unavailable CLARITZA, SACHIN (PA) Attending Unavailable YOEL LENNY T Attending Unavailable ADDYCHAPARRO RUSSO Referring Unavailable YOEL, LENNY T Attending Unavailable ADDY, CHAPARRO MOORE Referring Unavailable CLARITZA, SACHIN (PA) Attending Unavailable CHAPARRO SÁNCHEZ Referring Unavailable YOEL, LENNY T Attending Unavailable YOEL, LENNY T Referring Unavailable Dr. Dinah Camacho Primary Care Provider Dr. Dinah Camacho Attending Provider Dr. Dinah Camacho Referring Provider Dr. Dinah Camacho Primary Care Provider Dr. Dinah Camacho Attending Provider [phone] Dinah Camacho Primary Care Provider Dr. Dinah Camacho Referring Provider Dilip YOUNG PA Yuriy Attending Provider Dr. Dinah Camacho Attending Provider Dr. Toñito Lee Attending Provider [phone] Dr. Manuel Rai Attending Provider Dinah Camacho Attending Unavailable Dinah Camacho Referring Unavailable Dinah Camacho Primary Care Unavailable Dinah Camacho Attending Unavailable Dinah Camacho Referring Unavailable Dinah Camacho Primary Care Unavailable Denise Castillo Attending Unavailable Dinah Camacho Referring Unavailable Dinah Camacho Primary Care Unavailable Denise Castillo Primary Care Unavailable Dinah Camacho Attending Unavailable Amita Jacobo Attending Unavailable Dinah Camacho Referring Unavailable Dinah Camacho Primary Care Unavailable Dinah Camacho Attending Unavailable Dinah Camacho Primary Care Unavailable Dinah Camacho Attending Unavailable Dinah Camacho Primary Care Unavailable Dinah Camacho Attending Unavailable Dinah Camacho Referring Unavailable Dinah Camacho Primary Care Unavailable Medications Current Medications Medication Drug Class(es) Dates Sig (Normalized) Sig (Original) celecoxib 200 mg oral capsule (2 sources) Nonsteroidal Anti-inflammatory Drug Start: 08-13-2023 take 200 mg by mouth once daily Celecoxib Active 200 MG PO DAILY August 13, 2023 12:00am cyclobenzaprine hydrochloride 10 mg oral tablet (4 sources) Muscle Relaxant Start: 08-13-2023 End: 08-21-2023 take 10 mg by mouth three times daily Cyclobenzaprine Active 10 MG PO THREE TIMES A DAY August 21, 2023 6:57pm Do not drive or operate equipment when using this medication. Multivitamin preparation (5 sources) Start: 11-05-2018 Multivitamin Active 1 EACH PO DAILY November 05, 2018 9:14am Start: 11-05-2018 Multivitamin A ctive 1 EACH PO DAILY November 05, 2018 1:00am ubidecarenone 10 mg oral cap cesar (5 sources) Start: 08-19-2018 Coenzyme Q10 A ctive 10 MG PO ONCE August 19, 2018 12:00am Completed/Discontinued Medications Medication Drug Class(es) Dates Sig (Normalized) Sig (Original) acetaminophen 325 mg / HYDROcodone bitartrate 5 mg oral tablet (8 sources) Opioid Agonist Start: 08-18-2023 End: 08-27-2023 take 1 tablet by mouth every six hours Hydrocodone-Acetami nophen Discontinued 1 TABLET PO EVERY 6 HOURS 30 7 August 21, 2023 August 27, 2023 9:11am acetaminophen 325 mg / oxyCODONE hydrochloride 5 mg oral tablet (5 sources) Opioid Agonist Start: 11-08-2018 End: 11-15-2018 take 1 tablet by mouth every six hours as needed Oxycodone-Acetamino phen Discontinued 1 TABLET PO EVERY 6 HOURS NEEDED 12 05November 08, 2018 1:00am November 15, 2018 1:10am ascorbic acid 500 mg oral tablet (5 sources) Vitamin C Start: 10-07-2018 End: 06-11-2021 take 500 mg by mouth once daily Ascorbic Acid (Vitamin C) Discontinued 500 MG PO DAILY October 07, 2018 1:00am June 11, 2021 9:48am dibucaine 0.01 mg/mg rectal ointment (5 sources) Standardized Chemical Allergen Start: 11-08-2018 End: 11-26-2020 Dibucaine Discontinued 56.7 GM RC NEEDED November 08, 2018 7:02pm November 26, 2020 10:28am as needed as directed levothyroxine sodium 0.088 mg oral tablet (20 sources) l-Thyroxine Start: 06-11-2021 End: 01-26-2023 take 88 ug by mouth once daily Levothyroxine Discontinued 88 MCG PO DAILY January 20, 2022 1:01pm January 26, 2023 12:33pm Start: 11-26-2020 End: 06-11-2021 take 75 ug by mouth once daily Levothyroxine Discontin ued 75 MCG PO DAILY January 03, 2021 3:51pm June 11, 2021 1:08pm meloxicam 15 mg oral tablet (5 sources) Nonsteroidal Anti-inflammatory Drug Start: 01-09-2020 End: 11-26-2020 take 1 tablet by mouth once daily Meloxicam (Mobic) 15 mg tablet Discontinued 15 MG PO DAILY January 09, 2020 12:00am November 26, 2020 10:28am Do not take with other NSAIDs methylPREDNISolone 4 mg oral tablet (5 sources) Corticosteroid Start: 07-31-2023 End: 08-06-2023 take 1 tablet by mouth once Methylprednisolone (Medrol (Jeremy)) 4 mg tablets,dose pack Discontinued 4 MG PO per package directions 15 04July 31, 2023 12:00am August 06, 2023 12:04am Start: 05-26-2022 End: 03-26-2023 take 1 tablet by mouth once Methylprednisolone (Medrol (Jeremy)) 4 mg tablets,dose pack Discontinued 0 PO per package directions May 26, 2022 12:00am March 26, 2023 3:02pm take as directed simvastatin 40 mg oral tablet (20 sources) HMG-CoA Reductase Inhibitor Start: 08-19-2018 End: 01-26-2023 take 40 mg by mouth at bedtime Simvastatin Discontinued 40 MG PO AT BEDTIME January 20, 2022 1:01pm January 26, 2023 12:33pm Problems Active Problems Problem Classification Problem Date Documented Da te Episodic/Chronic Abdominal hernia (13 sources) Umbilical hernia; Translations: [Umbilical hernia without obstruction or gangrene] Episodic Calculus of urinary tract (5 sources) History of calculus of kidney; Translations: [Personal history of urinary calculi] 11-26-2020 Episodic Diseases of white blood cells (5 sources) Lymphocytosis; Translations: [Lymphocytosis (symptomatic)] 02-07-2022 Chronic Disorders of lipid metabolism (10 sources) Hyperlipidemia; Translations: [Hyperlipidemia, unspecified] Onset: 04-21-2024 Chronic Essential hypertension (1 source) Essential (primary) hypertension; Translations: [Essential (primary) hypertension] Onset: 09-21-2024 Chronic Nutritional deficiencies (1 source) Vitamin D deficiency, unspecified; Translations: [Vitamin D deficiency, unspecified] Onset: 04-21-2024 Chronic Other connective tissue disease (5 sources) Diastasis recti; Translations: [Separation of muscle (nontraumatic), other site] 02-06-2022 Episodic Other connective tissue disease (2 sources) Separation of muscle (nontraumatic), other site; Translations: [Diastasis of muscle] Episodic Other non-traumatic joint disorders (3 sources) Pain in wrist; Translations: [Pain in right wrist] 05-26-2022 Episodic Other non-traumatic joint disorders (1 source) Pain in left knee; Translations: [Left knee pain] 08-27-2023 Episodic Other skin disorders (1 source) Other specified disorders of the skin and subcutaneous tissue; Translations: [Other specified disorders of the skin and subcutaneous tissue] Onset: 01-19-2019 Episodic Other skin disorders (3 sources) Multiple actinic keratoses; Translations: [Actinic keratosis] 03-26-2023 Episodic Other skin disorders (1 source) Actinic keratosis; Translations: [Actinic keratosis] 03-26-2023 Episodic Spondylosis; intervertebral disc disorders; other back problems (10 sources) Lumbar radiculopathy; Translations: [Radiculopathy, lumbar region] 08-19-2023 Episodic Thyroid disorders (9 sources) Hypothyroidism; Translations: [Hypothyroidism, unspecified] Onset: 11-17-2024 Chronic Past or Other Problems Problem Classification Problem Date Documented Da te Episodic/Chronic Other screening for suspected conditions (not mental disorders or infectious disease) (1 source) Encounter for screening for malignant neoplasm of prostate; Translations: [Encounter for screening for malignant neoplasm of prostate] Onset: 04-21-2024 Episodic Sprains and strains (14 sources) Sprain of wrist; Translations: [Unspecified sprain of right wrist, initial encounter] Onset: 01-20-2024 10-08-2018 Episodic Unclassified (3 sources) history of anual fistula 05-15-2022 Results Test Name Value Interpretation Reference Range Facility Plastic Surgery Visit Report on 12-13-2024 Plastic Surgery Visit Report [facility] [address] [place] [id number] OFFICE VISIT Date of Service: 12/13/24 MR#: [id number] Acct: [id number] Name: CRYSTAL HAUSER Rep #: [id number] : 1950 Provider: Dr. Amita christian MD Age/Sex: 74/M Location: [facility] Status: Signed Intake Vital Signs 09/21/24 10:11 12/13/24 10:54 Height 5 ft 8 in 5 ft 8 in Weight: 226 lb 2 oz BMI 34.4 BP 153/92 H 146/76 H Blood Pressure Location Lt brachial Lt brachial Position Sitting Sitting Respiration 16 18 Pulse 73 74 Pulse Source Monitor Temp 98.4 F 97.3 F L Temp Source Temporal Oral Pulse Oximetry (%) 92 93 Oxygen Delivery Method room air room air Intake Visit Reasons: UPPER BLEPH CONSULT Chief Complaint: upper bleph consult Is patient in pain?: No Allergies No Known Allergies Allergy (Verified 12/13/24 10:55) Medications ???Medication ???Instructions ???Recorded ???Confirmed ???Type multivitamin 1 ea PO DAILY 11/05/18 12/13/24 Hi story simvastatin 40 mg tablet 40 mg PO QHS #90 tabs 02/01/24 Rx levothyroxine 100 mcg tablet 100 mcg PO DAILY #90 tabs 07/21/24 12/13/24 Rx Have you fallen in the past year?: No Nurse's Note: previous pt of Dr. Sherman, recommended pt to see Dr. 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 HPI UPPER BLEPH CONSULT Details: Crystal is a 74-year-old male who presents for consideration of upper blepharoplasty. He has difficulty with visualization of the upper lateral serna of vision. He states this has progressively gotten worse. He at times elevates his eyelids to facilitate his vision. He is otherwise in good health. He has known hypertension and hypothyroidism which is being controlled and monitored by his PCP. Exam Details Patient with significant dermatochalasis of the upper eyelids. He has limitation in his upper and lateral visual serna. The overlying skin is intact. The procedure of upper blepharoplasty was reviewed with him including the incisions and scars as well as limitations after surgery. The expected pre-, intra-, postoperative course were reviewed. I have indicated that we will need to submit his information to the insurance to obtain preauthorization for the proposed procedure of upper blepharoplasty. He would be a good candidate for upper blepharoplasty. He needs to obtain visual serna for objective documentation of his limitation. We will ask his greenskeeper head for this information. The patient also asked questions regarding weight loss and whether liposuction would be a solution. I have reviewed this with him that this does not result in weight loss. Diet management including limitation of carbohydrates was reviewed as a possible means of reducing his weight. Const General: cooperative and healthy appearing Eyes Alignment and Position: alignment normal EOM: EOM intact bilaterally Coding Level of Care Code Off vis,new,level 3 Diagnoses Dermatochalasis of both upper eyelids H02.831; H02.834 Visual field defect of both eyes H53.40 Assessment and Plan (No Qualifiers) Assessment and Plan (1) Dermatochalasis of both upper eyelids: Status: Acute (2) Visual field defect of both eyes: Status: Acute Plan Details Additional Comments: Once he has obtained his visual serna, we will submit the information to the insurance to obtain preauthorization for the proposed procedure of bilateral upper blepharoplasty. Clinical Quality Measures Falls Risk Screening/Assistive Devices Have you fallen in the past year?: No 12/13/24 1640 Date Amita Jacobo MD (more content not included)... Normal [facility] Free T3on 10-21-2024 Free T3 [Mass/Vol] 2.3 pg/mL Normal 2.18-3.98 [facility] Comment on above: Performed By: #### L 501.90593, L501.9520, L506.0400 ####[facility] [id number] [place], [place], [id number] T4 Free Directon 10-21-2024 T4 FREE DIRECT 1.03 ng/dL Normal 0.76-1.46 [facility] Comment on above: Performed By: #### L 501.54119, [id number], L506.0400 ####[facility] [address] [place], [address] Thyroid Stim Hormone (TSH)on 10-21-2024 TSH 3.560 uIU/mL Normal 0.358-3.740 [facility] Comment on above: Performed By: #### L 501.79025, L501.9520, L506.0400 ####[facility] [address] [place], [address] MR/BMS.ALBANBon 09-21-2024 MR/BMS.B [facility] [address] [place] [address] OFFICE VISIT Date of Service: 09/21/24 MR#: [id number] Acct: [id number] Name: CRYSTAL HAUSER Rep #: [id number] : 1950 Provider: Dr. Dianh arshad MD Age/Sex: 74/M Location: [facility] Status: Signed Intake Vital Signs 09/08/24 13:10 09/21/24 10:11 Height 5 ft 8 in 5 ft 8 in Weight: 224 lb 226 lb 2 oz BMI 34.0 34.4 BP 130/88 H 153/92 H Blood Pressure Location Lt brachial Lt brachial Position Sitting Sitting Respiration 16 16 Pulse 83 73 Pulse Source Monitor Monitor Temp 97.1 F L 98.4 F Temp Source Temporal Temporal Pulse Oximetry (%) 99 92 Oxygen Delivery Method room air room air Intake Visit Reasons: Discuss Thyroid Testing Chief Complaint: discuss thyroid testing Larriman Helper Required: No Accompanied by: Self Is patient in pain?: No Allergies No Known Allergies Allergy (Verified 09/21/24 10:02) Medications ???Medication ???Instructions ???Recorded ???Confirmed ???Type multivitamin 1 ea PO DAILY 11/05/18 09/21/24 History simvastatin 40 mg tablet 40 mg PO QHS #90 tabs 02/01/24 09/21/24 Rx levothyroxine 100 mcg tablet 100 mcg PO DAILY #90 tabs 07/21/24 09/21/24 Rx Have you fallen in the past year?: No [facility] Medical History Actinic keratoses Sacroiliac joint dysfunction of left side Arthritis History of renal stone Hyperlipemia Hypothyroidism Surgical History History of cataract extraction history of anual fistula History of colonoscopy Family History Father Heart disease CVA (cerebral vascular accident) Myocardial infarction Sister Age: 80 Heart disease High cholesterol Myocardial infarction Mother Cancer Social History household members: spouse current occupational status: employed 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 74-year-old gentleman who has a history of hypothyroidism, hyperlipidemia, hypertension. He has not been on a ctive treatment currently for high blood pressure. Blood pressure reading is a bit elevated today. We discussed that in some detail. He would do home monitoring over the next 2 weeks and drop those readings off. He wanted to discuss the fact that when we switched him over from 88 mcg levothyroxine to 100 mcg back in June, he unfortunately inadvertently went back to the lower dose for several weeks before realizing it. He has been on the 100 mcg daily now for the last couple of weeks. He has been feeling fine. He states actually on the higher dose of levothyroxine his bowel movements are a bit more regular, whereas they were perhaps a bit more irregular in timing perhaps sometimes every other day versus daily. He feels otherwise fine from that standpoint. He is not having any untoward symptoms regarding blood pressure at this point. Review of systems per chart. Physical exam. Vital signs on chart. PERRLA. Sclera are clear. TMs are unremarkable with normal light reflexes. Canals are unremarkable. Posterior pharynx is unremarkable. Good dentition. No cervical or supraclavicular lymph nodes enlarged or tender. No clear thyromegaly. No thyroid nodules readily palpable. Lungs are without wheeze, rhonchi, rales. No E/A changes are heard. Heart is regular. Not tachycardic. No clear murmur, rub, or gallop is identified. The abdomen is soft. Bowel sounds are present. On the left side of the cheek area where the sideburns are, there is a slightly raised, scaly lesion consistent with actinic keratosis however I cannot entirely exclude squamous cell here. He has had lesions removed from the face in the past through [facility]. He will contact them and have that when looked at as well. ROS Const Constitutional: No body ache, chills, excessive sweating, fatigue, fever(s), frequent falls, headache(s), snoring, weakness or change in appetite Eyes Eyes: No blurry vision, change in vision, eye pain or Light sensitivity ENT ENT: No abnormal hearing, ear or mastoid pain, tinnitus, nasal congestion, headache(s), neck pain or sore throat Resp Respiratory: No cough, shortness of breath, snoring or wheezing Cardio Cardiology: No chest pain at rest, chest pain with exertion, excessive sweating, dyspnea on exertion, lightheaded (more content not included)... Normal [facility] Internal Medicine Office Vis becky 09-06-2024 Internal Medicine Office Visit [facility] [address] [place] [address] [place] [address] OFFICE VISIT Date of Service: 09/08/24 MR#: [id number] Acct: [id number] Name: CRYSTAL HAUSER Rep #: [id number] : 1950 Provider: Dr. 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 EST CARE - CARLINE PT/CONSENT ONLY Chief Complaint: est care Larriman Helper Required: No Accompanied by: Is patient in pain?: No Allergies No Known Allergies Allergy (Verified 09/08/24 13:01) Medications ???Medication ???Instructions ???Recorded ???Confirmed ???Type multivitamin 1 ea PO DAILY 11/05/18 09/08/24 History simvastatin 40 mg tablet 40 mg PO QHS #90 tabs 02/01/24 09/08/24 Rx levothyroxine 100 mcg tablet 100 mcg PO DAILY #90 tabs 07/21/24 09/08/24 Rx Have you fallen in the past year?: No PFSH Medical History (Updated 09/08/24 @ 15:[address] Denise Castillo MD) Actinic keratoses Sacroiliac joint dysfunction of left side Arthritis History of renal stone Hyperlipemia Hypothyroidism Surgical History History of cataract extraction history of anual fistula History of colonoscopy Family History Father Heart disease CVA (cerebral vascular accident) Myocardial infarction Sister Age: 79 Heart disease High cholesterol Myocardial infarction Mother Cancer Social History (Updated 09/08/24 @ 13:[address] 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 He was seeing Dr. Camacho and last saw him in March. He is not due for any routine blood work. He is not due for any screening. He doesn't want any immunizations. He doesn't smoke and doesn't need any refills. He reports he is eating healthy and staying active. The patient has been on thyroid medications for about 7 years. He takes his synthroid first thing in the morning before anything else. His last TSH level was slightly elevated. He reports his dose was increased when it was last checked. He has orders to have it rechecked in a couple of weeks. The patient takes his cholesterol medications without problems. He has no questions or concerns at this time. ROS Const Constitutional: No body ache, chills, excessive sweating, fatigue, fever(s), frequent falls, headache(s), snoring, weakness, weight change or change in appetite Eyes Eyes: No blurry vision, change in vision, eye pain or Light sensitivity ENT ENT: No abnormal hearing, ear or mastoid pain, tinnitus, nasal congestion, headache(s), neck pain or sore throat Resp Respiratory: No cough, shortness of breath, snoring or wheezing Cardio Cardiology: No chest pain at rest, chest pain with exertion, excessive sweating, dyspnea on exertion, lightheadedness, orthopnea, palpitations or other (no leg swelling) Gastro GI: No abdominal pain, change in bowel habits, constipation, cramping, diarrhea, nausea/dyspepsia or vomiting Genitourinary Male: No difficulty urinating, burning urination, painful urination, urinary incontinence or urinary frequency Musc Musculoskeletal: No abnormal gait, joint pain, back pain, limited range of motion, muscle weakness, neck pain, numbness or tingling Skin Skin: No dry skin, redness, lesions, itchy eyes, rash or wounds Neuro Neurology: No abnormal gait, abnormal hearing, dizziness, weakness, frequent falls, headache(s), memory loss, numbness, tingling or fainting Psych Psychiatric: No anxiety, No change in appetite, No depression, No memory loss and No Thoughts of harming yourself/Others Endo Endocrine: No cold intolerance, excessive sweating, fatigue, flushing, heat intolerance, increased thirst/drinking, increased hunger or weight change Aller/Imm Allergy/Immunologic: No itchy eyes, seasonal allergy symptoms, hives or wheezing Steve/Lymp Hematologic/Lymphatic : No easy bleeding or easy bruising Exam Const General: cooperative, healthy appearing, no acute distress, well developed, n (more content not included)... Normal [facility] Free T3on 07-21-2024 Free T3 [Mass/Vol] 2.8 pg/mL Normal 2.18-3.98 [facility] Comment on above: Performed By: #### L 506.0400, L501.33280, L501.9520 ####[facility] [address] [place], [address] T4 Free Directon 07-21-2024 T4 FREE DIRECT 1.08 ng/dL Normal 0.76-1.46 [facility] Comment on above: Performed By: #### L 506.0400, L501.16952, L501.9520 ####[facility] [address] [place], [address] Thyroid Stim Hormone (TSH)on 07-21-2024 TSH 4.970 uIU/mL High 0.358-3.740 [facility] Comment on above: Performed By: #### L 506.0400, L501.91453, L501.9520 ####[facility] [address] [place], [address] Vitamin D,25 Hydroxyon 04-25 Vitamin D 25-OH 30.3 ng/mL Normal [facility] Comment on above: Result Comment: Veronika min D 25(OH) Status Range Deficiency <20 ng/mL (50nmol/L) Insufficiency 20 - 30 ng/mL (50 - 75 nmol/L) Sufficiency 30 - 100 ng/mL (75 - 250 nmol/L) Toxicity >100 ng/mL (>250 nmol/L) Performed By: #### L 100.0100, L501.79502, L500.4100, L501.9520, L500.4050, L501.9910, L506.1000, L506.0400 ####[facility] [address] [place], [address] CBC W/Diff, Automatedon 06-2 Absolute Lymph 2.48 X10 3/uL Normal 0.83-4.51 [facility] Comment on above: Performed By: #### L 100.0100, L501.69779, L500.4100, L501.9520, L500.4050, L501.9910, L506.1000, L506.0400 #### [facility] [address] [place], [address] Absolute Neut 3.4 X10 3/uL Normal 2.0-7.7 [facility] Comment on above: Performed By: #### L 100.0100, L501.17685, L500.4100, L501.9520, L500.4050, L501.9910, L506.1000, L506.0400 #### [facility] [address] [place], [address] Basophils/100 WBC (Bld) 0.7 % Normal 0-1 [facility] Comment on above: Performed By: #### L 100.0100, L501.46104, L500.4100, L501.9520, L500.4050, L501.9910, L506.1000, L506.0400 #### [facility] [address] [place], [address] Eosinophils/100 WBC (Bld) 2.5 % Normal 0-5 [facility] Comment on above: Performed By: #### L 100.0100, L501.95647, L500.4100, L501.9520, L500.4050, L501.9910, L506.1000, L506.0400 #### [facility] [address] [place], [address] Erythrocyte distribution width (RBC) [Ratio] 13.5 % Normal 11.6-14.6 [facility] Comment on above: Performed By: #### L 100.0100, L501.16061, L500.4100, L501.9520, L500.4050, L501.9910, L506.1000, L506.0400 #### [facility] [address] [place], [address] Hematocrit (Bld) [Volume fraction] 43.8 % Normal 40-54 [facility] Comment on above: Performed By: #### L 100.0100, L501.23658, L500.4100, L501.9520, L500.4050, L501.9910, L506.1000, L506.0400 #### [facility] [address] [place], [address] Hemoglobin (Bld) [Mass/Vol] 14.6 g/dL Normal 13.0-16.5 [facility] Comment on above: Performed By: #### L 100.0100, L501.17059, L500.4100, L501.9520, L500.4050, L501.9910, L506.1000, L506.0400 #### [facility] [address] [facility] [place], [address] IG% 0.000 Normal 0.0-0.9 [facility] Comment on above: Result Comment: IG% - Immature Granulocytes (promyelocytes, myelocytes and metamyelocytes) > 1% indicates that a LEFT SHIFT is Present. Performed By: #### L 100.0100, L501.12935, L500.4100, L501.9520, L500.4050, L501.9910, L506.1000, L506.0400 #### [facility] [address] [place], [address] Lymphocytes/100 WBC (Bld) 36.8 % Normal 19-41 [facility] Comment on above: Performed By: #### L 100.0100, L501.23365, L500.4100, L501.9520, L500.4050, L501.9910, L506.1000, L506.0400 #### [facility] [address] [facility] [place], [address] MCH (RBC) [Entitic mass] 31.4 pg Normal 27.0-32.0 [facility] Comment on above: Performed By: #### L 100.0100, L501.04380, L500.4100, L501.9520, L500.4050, L501.9910, L506.1000, L506.0400 #### [facility] [address] [place], [address] MCHC (RBC) [Mass/Vol] 33.3 g/dL Normal 32-36 [facility] Comment on above: Performed By: #### L 100.0100, L501.26150, L500.4100, L501.9520, L500.4050, L501.9910, L506.1000, L506.0400 #### [facility] [address] [place], [address] MCV (RBC) [Entitic vol] 94.2 fL High 80-94 [facility] Comment on above: Performed By: #### L 100.0100, L501.24429, L500.4100, L501.9520, L500.4050, L501.9910, L506.1000, L506.0400 #### [facility] [address] [place], [address] Monocytes/100 WBC (Bld) 9.5 % Normal 0-10 [facility] Comment on above: Performed By: #### L 100.0100, L501.05636, L500.4100, L501.9520, L500.4050, L501.9910, L506.1000, L506.0400 #### [facility] [address] [place], [address] Neutrophils/100 WBC (Bld) 50.5 % Normal 47-70 [facility] Comment on above: Performed By: #### L 100.0100, L501.28755, L500.4100, L501.9520, L500.4050, L501.9910, L506.1000, L506.0400 #### [facility] [address] [place], [address] Nucleated RBC (Bld) [#/Vol] 0 10*3/uL Normal 0-5 [facility] Comment on above: Performed By: #### L 100.0100, L501.74363, L500.4100, L501.9520, L500.4050, L501.9910, L506.1000, L506.0400 #### [facility] [address] [place], [address] Platelet mean volume (Bld) [Entitic vol] 10.4 fL Normal 6.2-12.0 [facility] Comment on above: Performed By: #### L 100.0100, L501.29030, L500.4100, L501.9520, L500.4050, L501.9910, L506.1000, L506.0400 #### [facility] [address] [place], [address] Platelets (Bld) [#/Vol] 202 10*3/uL Normal 150-450 [facility] Comment on above: Performed By: #### L 100.0100, L501.98998, L500.4100, L501.9520, L500.4050, L501.9910, L506.1000, L506.0400 #### [facility] [address] [place], [address] RBC (Bld) [#/Vol] 4.65 10*6/uL Normal 4.6-6.2 [facility] Comment on above: Performed By: #### L 100.0100, L501.64028, L500.4100, L501.9520, L500.4050, L501.9910, L506.1000, L506.0400 #### [facility] [address] [place], [address] RDW SD 46.5 fl High 35.1-43.9 [facility] Comment on above: Performed By: #### L 100.0100, L501.20774, L500.4100, L501.9520, L500.4050, L501.9910, L506.1000, L506.0400 #### [facility] [address] [place], [place], [address] WBC (Bld) [#/Vol] 6.7 10*3/uL Normal 4.4-11.0 [facility] Comment on above: Performed By: #### L 100.0100, L501.13784, L500.4100, L501.9520, L500.4050, L501.9910, L506.1000, L506.0400 #### [facility] [address] [place], [place], [id number] Comprehensive Metabolic Prof [facility] 04-23-2024 Albumin [Mass/Vol] 3.3 g/dL Normal 3.2-5.0 [facility] Comment on above: Performed By: #### L 100.0100, L501.93784, L500.4100, L501.9520, L500.4050, L501.9910, L506.1000, L506.0400 #### [facility] [address] [place], [place], [id number] Albumin/Globulin [Mass ratio] 0.8 {ratio} Low 0.9-2.4 [facility] Comment on above: Performed By: #### L 100.0100, L501.72575, L500.4100, L501.9520, L500.4050, L501.9910, L506.1000, L506.0400 #### [facility] [address] [place], [address] ALK P 84 U/L Normal 45-117 [facility] Comment on above: Performed By: #### L 100.0100, L501.09658, L500.4100, L501.9520, L500.4050, L501.9910, L506.1000, L506.0400 #### [facility] [address] [place], [address] ALT [Catalytic activity/Vol] 24 U/L Normal 16-61 [facility] Comment on above: Performed By: #### L 100.0100, L501.41246, L500.4100, L501.9520, L500.4050, L501.9910, L506.1000, L506.0400 #### [facility] [address] [place], [address] AST [Catalytic activity/Vol] 17 U/L Normal 15-37 [facility] Comment on above: Performed By: #### L 100.0100, L501.83614, L500.4100, L501.9520, L500.4050, L501.9910, L506.1000, L506.0400 #### [facility] [address] [place], [address] Bilirubin [Mass/Vol] 0.70 mg/dL Normal 0.20-1.00 [facility] Comment on above: Result Comment: For patients on eltrombopag therapy, use of [facility] TBIL is not recommended. Performed By: #### L 100.0100, L501.51234, L500.4100, L501.9520, L500.4050, L501.9910, L506.1000, L506.0400 #### [facility] [address] [place], [address] BUN/CRE 18.3 RATIO Normal 10-20 [facility] Comment on above: Performed By: #### L 100.0100, L501.58432, L500.4100, L501.9520, L500.4050, L501.9910, L506.1000, L506.0400 #### [facility] [address] [place], [address] CA,Total 8.8 mg/dL Normal 8.5-10.1 [facility] Comment on above: Performed By: #### L 100.0100, L501.88933, L500.4100, L501.9520, L500.4050, L501.9910, L506.1000, L506.0400 #### [facility] [address] [place], [address] Chloride [Moles/Vol] 110 mmol/L High 98-107 [facility] Comment on above: Performed By: #### L 100.0100, L501.09970, L500.4100, L501.9520, L500.4050, L501.9910, L506.1000, L506.0400 #### [facility] [address] [place], [address] CO2 [Moles/Vol] 25.0 mmol/L Normal 21.0-32.0 [facility] Comment on above: Performed By: #### L 100.0100, L501.45156, L500.4100, L501.9520, L500.4050, L501.9910, L506.1000, L506.0400 #### [facility] [address] [place], [address] Creatinine [Mass/Vol] 1.04 mg/dL Normal 0.70-1.30 [facility] Comment on above: Result Comment: The validity of the calculated GFR GFRAA in patients over 70 years has not been determined. Clinical correlation is essential. Performed By: #### L 100.0100, L501.18144, L500.4100, L501.9520, L500.4050, L501.9910, L506.1000, L506.0400 #### [facility] [address] [place], [address] EST GFR - AA 90 mL/min Normal >60 [facility] Comment on above: Result Comment: Afri can Andorran GFR Calc Performed By: #### L 100.0100, L501.03034, L500.4100, L501.9520, L500.4050, L501.9910, L506.1000, L506.0400 #### [facility] [address] [place], [address] GAP 5 Normal 5-15 [facility] Comment on above: Performed By: #### L 100.0100, L501.64207, L500.4100, L501.9520, L500.4050, L501.9910, L506.1000, L506.0400 #### [facility] [address] [place], [address] GFR/1.73 sq M.predicted among non-blacks MDRD (S/P/Bld) [Vol rate/Area] 75 mL/min/{1.73_m2} Normal >60 [facility] Comment on above: Result Comment: Non- GFR Calc Performed By: #### L 100.0100, L501.25535, L500.4100, L501.9520, L500.4050, L501.9910, L506.1000, L506.0400 #### [facility] [address] [place], [address] Globulin (S) [Mass/Vol] 4.1 g/dL Normal 2.2-4.2 [facility] Comment on above: Performed By: #### L 100.0100, L501.63460, L500.4100, L501.9520, L500.4050, L501.9910, L506.1000, L506.0400 #### [facility] [address] [place], [address] Glucose [Mass/Vol] 104 mg/dL Normal 74-106 [facility] Comment on above: Result Comment: Fast ing Glucose result from 100 to 125 mg/dL suggests IMPAIRED HOMEOSTASIS per A.D.A. criteria. Performed By: #### L 100.0100, L501.80854, L500.4100, L501.9520, L500.4050, L501.9910, L506.1000, L506.0400 #### [facility] [address] [place], [address] Potassium [Moles/Vol] 4.0 mmol/L Normal 3.5-5.1 [facility] Comment on above: Performed By: #### L 100.0100, L501.92197, L500.4100, L501.9520, L500.4050, L501.9910, L506.1000, L506.0400 #### [facility] [address] [place], [address] Sodium [Moles/Vol] 140 mmol/L Normal 136-145 [facility] Comment on above: Performed By: #### L 100.0100, L501.68289, L500.4100, L501.9520, L500.4050, L501.9910, L506.1000, L506.0400 #### [facility] [address] [place], [address] T PROT 7.4 g/dL Normal 6.4-8.2 [facility] Comment on above: Performed By: #### L 100.0100, L501.02448, L500.4100, L501.9520, L500.4050, L501.9910, L506.1000, L506.0400 #### [facility] [address] [place], [address] Urea nitrogen [Mass/Vol] 19 mg/dL High 7-18 [facility] Comment on above: Performed By: #### L 100.0100, L501.55790, L500.4100, L501.9520, L500.4050, L501.9910, L506.1000, L506.0400 #### [facility] [address] [place], [address] Free T3on 04-23-2024 Free T3 [Mass/Vol] 2.5 pg/mL Normal 2.18-3.98 [facility] Comment on above: Performed By: #### L 100.0100, L501.08472, L500.4100, L501.9520, L500.4050, L501.9910, L506.1000, L506.0400 #### [facility] [address] [place], [address] Lipid Profileon 04-23-2024 Cholesterol [Mass/Vol] 179 mg/dL Normal 200 [facility] Comment on above: Result Comment: <200 mg/dL Desirable 200-240 mg/dL Borderline >240 mg/dL High Risk Performed By: #### L 100.0100, L501.57784, L500.4100, L501.9520, L500.4050, L501.9910, L506.1000, L506.0400 #### [facility] [address] [place], [address] Cholesterol in HDL [Mass/Vol] 60 mg/dL Normal [facility] Comment on above: Result Comment: The drugs N-Acetylcysteine and Metamizole may falsely depress this assay. Reference Range HDL <40 mg/dL Low HDL Cholesterol HDL >or= 60 mg/dL High HDL Cholesterol Performed By: #### L 100.0100, L501.42575, L500.4100, L501.9520, L500.4050, L501.9910, L506.1000, L506.0400 #### [facility] [address] [place], [address] Cholesterol in LDL [Mass/Vol] 103 mg/dL Normal 0-130 [facility] Comment on above: Performed By: #### L 100.0100, L501.05646, L500.4100, L501.9520, L500.4050, L501.9910, L506.1000, L506.0400 #### [facility] [address] [place], [address] Cholesterol in VLDL [Mass/Vol] 16 mg/dL Normal 5-40 [facility] Comment on above: Performed By: #### L 100.0100, L501.48095, L500.4100, L501.9520, L500.4050, L501.9910, L506.1000, L506.0400 #### [facility] [address] [place], [address] Triglyceride [Mass/Vol] 78 mg/dL Normal [facility] Comment on above: Result Comment: The drugs N-Acetylcysteine and Metamizole may falsely depress this assay. Serum Triglycerides Reference Interval Normal <150 mg/dL Borderline high 150 - 199 mg/dL High 200 - 499 mg/dL Very High > or = 500 mg/dL Performed By: #### L 100.0100, L501.76416, L500.4100, L501.9520, L500.4050, L501.9910, L506.1000, L506.0400 #### [facility] [address] [place], [address] PSA,Total - Annual Screenon 04-23-2024 PSA,TOT SCREEN 3.39 ng/mL Normal 0.00-4.00 [facility] Comment on above: Result Comment: This test was performed using the TPSA assay method for the [employer] system. Values obtained with different assay methods cannot be used interchangably. When changing PSA assays in the course of monitoring a patient, additional sequential testing should be carried out to confirm baseline values. Performed By: #### L 100.0100, L501.80912, L500.4100, L501.9520, L500.4050, L501.9910, L506.1000, L506.0400 #### [facility] [address] [place], [address] T4 Free Directon 04-23-2024 T4 FREE DIRECT 1.04 ng/dL Normal 0.76-1.46 [facility] Comment on above: Performed By: #### L 100.0100, L501.94481, L500.4100, L501.9520, L500.4050, L501.9910, L506.1000, L506.0400 #### [facility] [address] [facility] [place], [address] Thyroid Stim Hormone (TSH)on 04-23-2024 TSH 4.28 uIU/mL High 0.358-3.74 [facility] Comment on above: Performed By: #### L 100.0100, L501.69500, L500.4100, L501.9520, L500.4050, L501.9910, L506.1000, L506.0400 #### [facility] [address] [facility] [place], [place], [id number] MR/Tory 04-21-2024 MR/BMS.[facility] [address] [place] [address] OFFICE VISIT Date of Service: 04/21/24 MR#: [id number] Acct: [id number] Name: CRYSTAL HAUSER Rep #: [id number] : 1950 Provider: Dr. Dinah arshad MD Age/Sex: 73/M Location: [facility] Status: Signed Intake Vital Signs 01/20/24 09:08 04/21/24 15:39 Height 5 ft 8 in 5 ft 8 in Weight: 226 lb 2 oz 220 lb 8 oz BMI 34.4 33.5 Body Surface Area 2.15 BP 136/81 H 136/89 H Blood Pressure Location Lt brachial Lt brachial Position Sitting Sitting Respiration 18 16 Pulse 64 73 Pulse Source Monitor Monitor Temp 98.6 F 98.4 F Temp Source Temporal Temporal Pulse Oximetry (%) 91 92 Oxygen Delivery Method room air room air Intake Visit Reasons: Annual/Physical Chief Complaint: annual Larriman Helper Required: No Accompanied by: Is patient in pain?: No Allergies No Known Allergies Allergy (Verified 04/21/24 15:34) Medications ???Medication ???Instructions ???Recorded ???Confirmed ???Type multivitamin 1 ea PO DAILY 11/05/18 04/21/24 History levothyroxine 88 mcg tablet 88 mcg PO DAILY #90 tabs 02/01/24 04/21/24 Rx simvastatin 40 mg tablet 40 mg PO QHS #90 tabs 02/01/24 04/21/24 Rx Have you fallen in the past year?: No PFSH Medical History Arthritis History of renal stone Hyperlipemia Hypothyroidism Surgical History History of cataract extraction history of anual fistula History of colonoscopy Family History Father Heart disease CVA (cerebral vascular accident) Sister Heart disease Mother Cancer Social History Smoking Status: Never smoker alcohol intake: never substance use type: does not use what type of physical activity do you 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 Patient is a pleasant 73-year-old male, has a history of essential hypertension, hyperlipidemia and hypothyroidism. Blood pressures have been reasonably well-maintained, not currently on therapy. He is on levothyroxine 88 mcg daily and his 40 mg daily of simvastatin. He has tolerated his medical regimen. He is due for laboratory update in terms of thyroid, lipids. Overall feels well and does not have any new specific concerns or complaints. In the spring, he had some problems with nosebleed but I would suspect that that was related to the dry air, throughout the wintertime. He use nasal saline as we discussed and essentially that stopped and cleared up. Review of systems per chart. He is not experiencing any episodes of chest pain, chest tightness. No shortness of breath wheeze cough or congestion. No fever or chills. No nausea or vomiting. He did have some problems not long ago with his back and hip. This was more or less over the wintertime. At this point all of that has subsided. He was having some constipation around that time as well and that has all resolved. No significant nocturia symptoms. Generally once nightly, normal volume. Occasionally twice a night depending on oral intake. Physical exam. Vital signs on chart. EOMI. PERRLA. Sclera are clear. TMs are unremarkable with normal light reflexes. Canals are unremarkable. Posterior pharynx is unremarkable. Good dentition. No cervical or supraclavicular lymph nodes enlarged or tender. No clear thyromegaly. No thyroid nodules readily palpable. Lungs are without wheeze, rhonchi, rales. No E/A changes are heard. Heart is regular. Not tachycardic. No clear murmur, rub, or gallop is identified. The abdomen is soft. Bowel sounds are present. Nontender nondistended abdomen. No clear palpable masses in the abdomen. No significant leg edema. Cranial nerve examination 2 through 12 are grossly unremarkable nonlateralizing. ROS Const Constitutional: No body ache, chills, excessive sweating, fatigue, fever(s), frequent falls, headache(s), snoring, weakness or change in appetite Eyes Eyes: No blurry vision, change in vision, eye pain or Light sensitivity ENT ENT: No abnormal hearing, ear or mastoid pain, tinnitus, nasal congestion, headache(s), neck pain or sore throat Resp Respiratory: No cough, shortness of breath, snoring or wheezing Cardio Cardiology: No chest pain at rest, chest pain with exertion, excessive sweating, dyspnea on exertion, lightheadedness, orthopnea or palpitations Gastro GI: No abdominal pain, change in bowel habits, constipation, cramping, diarrhea, nausea/dyspepsia or vomiting Genitourinary Male: No burning urination, painful urination, urinary incontinence or u (more content not included)... Normal [facility] MR/BMS.Nehemias 01-20-2024 MR/BMS.[facility] [address] [facility] [facility] [place] [address] OFFICE VISIT Date of Service: 01/20/24 MR#: [id number] Acct: [id number] Name: JOSEPHCRYSTALLeandra PENA Rep #: [id number] : 1950 Provider: Dr. Dinah arshad MD Age/Sex: 73/M Location[place] [facility] Status: Signed Intake Vital Signs 08/27/23 09:12 01/20/24 09:08 Height 5 ft 8 in 5 ft 8 in Weight: 213 lb 226 lb 2 oz BMI 32.3 34.4 Body Surface Area 2.15 BP 136/81 H Blood Pressure Location Lt brachial Position Sitting Respiration 18 Pulse 64 Pulse Source Monitor Temp 98.6 F Temp Source Temporal Pulse Oximetry (%) 91 Oxygen Delivery Method room air Intake Visit Reasons: High BP, Nose Bleeds Chief Complaint: LT HIP PAIN, left thigh pain Larriman Helper Required: No Accompanied by: Is patient in pain?: No Allergies No Known Allergies Allergy (Verified 01/20/24 09:08) Medications coenzyme Q10 10 mg capsule 10 mg PO ONCE 08/19/18 [History Confirmed 01/20/24] multivitamin 1 ea PO DAILY 11/05/18 [History Confirmed 01/20/24] levothyroxine 88 mcg tablet 88 mcg PO DAILY #90 tabs 01/26/23 [Rx Confirmed 01/20/24] simvastatin 40 mg tablet 40 mg PO QHS #90 tabs 01/26/23 [Rx Confirmed 01/20/24] celecoxib 200 mg capsule 200 mg PO DAILY #20 caps 08/13/23 [Rx Confirmed 01/20/24] cyclobenzaprine 10 mg tablet 10 mg PO TID PRN muscle spasm #30 tabs 08/21/23 [Rx Confirmed 01/20/24] PFSH Medical History Arthritis History of renal stone Hyperlipemia Hypothyroidism Surgical History history of anual fistula History of cataract extraction History of colonoscopy Family History Father Heart disease CVA (cerebral vascular accident) Sister Heart disease Mother Cancer Social History Smoking Status: Never smoker alcohol intake: never substance use type: does not use what type of 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 Several days last week, Thursday, Thursday, Thursday and Thursday and Thursday this week he had epistaxis from the right side. Easily stopped he states but recurrent. He is not having pain in the nose. There is no drainage. He does note the eye is watering a bit. His BPs have been up and down a little bit and I have summarized those below. He is not on blood pressure medication but he probably has borderline elevated blood pressures which we have noted in the past but they have generally been borderline. Today it is 136/81. He is not having any frequent headaches, double vision or blurry vision, sore throat, fever, chills, nausea or vomiting. No chest pain or chest tightness. Review of systems per chart. Physical exam. Vital signs on chart. Sclera are clear. Neck is supple. No cervical or supraclavicular lymph nodes enlarged or tender. His posterior pharynx is unremarkable. In the left side of the nares, there is a small irritated patch, but not bleeding. On the right side, small scabbed area within Kiesselbach's triangle which is probably the source of the recent recurrent bleeding episodes. Not actively bleeding. Coding Level of Care Code Off vis,est,level 3 Diagnoses Epistaxis, recurrent R04.0 Essential hypertension I10 Time Spent (min) 30 Assessment and Plan Assessment and Plan (1) Epistaxis, recurrent: Status: Acute (2) Essential hypertension: Status: Acute Orders: Orders PSA,Total - Annual Screen 4 Months E03.9 - Hypothyroidism, unspecified, E78.5 - Hyperlipidemia, unspecified, S39.012A - Strain of muscle, fascia and tendon of lower back, initial encounter, Z12.5 - Encounter for screening for malignant neoplasm of prostate Lipid Profile Today E03.9 - Hypothyroidism, unspecified, E78.5 - Hyperlipidemia, unspecified, S39.012A - Strain of muscle, fascia and tendon of lower back, initial encounter, Z13.220 - Encounter for screening for lipoid disorders Thyroid Stim Hormone (TSH) Today E03.9 - Hypothyroidism, unspecified, E78.5 - Hyperlipidemia, unspecified, S39.012A - Strain of muscle, fascia and tendon of lower back, initial encounter T4 Free Direct Today E03.9 - Hypothyroidism, unspecified, E78.5 - Hyperlipidemia, unspecified, S39.012A - Strain of muscle, fascia and tendon of lower back, initial encounter Free T3 Today E03.9 - Hypothyroidism, unspecified, E78.5 - Hyperlipidemia, unspecified, S39.012A - Strain of muscle, fascia and tendon of lower back, initial encounter Plan Details Additional Comments: Patient presented as above. He did monitor his bl (more content not included)... Normal [facility] Absolute lymphocyte countOrd ered By: Dr. Camacho on 04-06-2023 Lymphocytes Auto (Unsp spec) [#/Vol] 2.77 10*3/uL 0.83-4.51 [facility] Basophil percentageOrdered B y: Dr. Camacho on 04-06-2023 Basophils/100 WBC (Bld) 0.7 % 0-1 [facility] Bilirubin [Mass/Vol] 0.50 mg/dL 0.20-1.00 [facility] Comment on above: For patients on eltr ombopag therapy, use of [facility] TBIL is not recommended. Chloride [Moles/Vol] 109 mmol/L 98-107 [facility] Cholesterol [Mass/Vol] 160 mg/dL <200 [facility] Comment on above: <200 mg/dL Desirable 200-240 mg/dL Borderline >240 mg/dL High Risk Eosinophils/100 WBC (Bld) 2.2 % 0-5 [facility] Glucose [Mass/Vol] 97 mg/dL 74-106 [facility] Neutrophils (Bld) [#/Vol] 3.3 10*3/uL 2.0-7.7 [facility] Neutrophils/100 WBC (Bld) 47.3 % 47-70 [facility] Potassium [Moles/Vol] 4.1 mmol/L 3.5-5.1 [facility] Protein [Mass/Vol] 7.2 g/dL 6.4-8.2 [facility] Sodium [Moles/Vol] 141 mmol/L 136-145 [facility] Triglyceride [Mass/Vol] 80 mg/dL <199 [facility] Comment on above: The drugs N-Acetylcy steine and Metamizole may falsely depress this assay.Serum Triglycerides Reference Interval Normal <150 mg/dL Borderline high 150 - 199 mg/dL High 200 - 499 mg/dL Very High > or = 500 mg/dL WBC (Bld) [#/Vol] 6.9 10*3/uL 4.4-11.0 [facility] Blood erythrocytes count (nu mber/volume)Ordered By: Dr. Camacho on 04-06-2023 RBC (Bld) [#/Vol] 4.72 10*6/uL 4.6-6.2 [facility] Blood hemoglobin measurement (mass/volume)Ordered By: Dr. Camacho on 04-06-2023 Hemoglobin (Bld) [Mass/Vol] 15.0 g/dL 13.0-16.5 [facility] Blood lymphocytes/100 leukoc ytesOrdered By: Dr. Camacho on 04-06-2023 Lymphocytes/100 WBC (Bld) 40.1 % 19-41 [facility] Blood monocytes/100 leukocyt esOrdered By: Dr. Camacho on 04-06-2023 Monocytes/100 WBC (Bld) 9.6 % 0-10 [facility] Blood platelet mean volumeOr dered By: Dr. Camacho on 04-06-2023 Platelet mean volume (Bld) [Entitic vol] 11.4 fL 6.2-12.0 [facility] Determination of erythrocyte mean corpuscular volume (MCV)Ordered By: Dr. Camacho on 04-06-2023 MCV (RBC) [Entitic vol] 97.0 fL 80-94 [facility] Hematocrit Auto (Bld) [Volum e fraction]Ordered By: Dr. Camacho on 04-06-2023 Hematocrit (Bld) [Volume fraction] 45.8 % 40-54 [facility] Laboratory - Chemistry and C hemistry - challengeOrdered By: Dr. Camacho on 04-06-2023 ALP [Catalytic activity/Vol] 67 U/L 45-117 [facility] ALT [Catalytic activity/Vol] 18 U/L 16-61 [facility] CO2 [Moles/Vol] 26.0 mmol/L 21.0-32.0 [facility] Free T4 [Mass/Vol] 1.12 ng/dL 0.76-1.46 [facility] Globulin (S) [Mass/Vol] 3.9 g/dL 2.2-4.2 [facility] Urea nitrogen/Creatinine [Mass ratio] 22.2 mg/mg 10-20 [facility] Laboratory - Hematology and Cell countsOrdered By: Dr. Camacho on 04-06-2023 Erythrocyte distribution width (RBC) [Entitic vol] 45.9 fL 35.1-43.9 [facility] Erythrocyte distribution width (RBC) [Ratio] 12.9 % 11.6-14.6 [facility] Immature granulocytes/100 WBC (Bld) 0.100 % 0.0-0.9 [facility] Comment on above: IG% - Immature Granu locytes (promyelocytes, myelocytes and metamyelocytes) > 1% indicates that a LEFT SHIFT is Present. MCH (RBC) [Entitic mass] 31.8 pg 27.0-32.0 [facility] Nucleated RBC/100 WBC (Bld) [Ratio] 0 % 0-5 [facility] MCHC Auto (RBC) [Mass/Vol]Or dered By: Dr. Camacho on 04-06-2023 MCHC (RBC) [Mass/Vol] 32.8 g/dL 32-36 [facility] No Panel InformationOrdered By: Dr. Camacho on 04-06-2023 Estimated GFR (MDRD) Amer 114 mL/min >60 [facility] Comment on above: GFR Calc Estimated GFR (MDRD) Non-Af Amer 94 mL/min >60 [facility] Comment on above: Non- GFR Calc Free Triiodothyronine (T3) pg/dL 2.5 pg/mL 2.18-3.98 [facility] Prostate Specific Antigen Screen 3.08 ng/mL 0.00-4.00 [facility] Comment on above: This test was perfor med using the TPSA assay method for [facility] system. Values obtained with differentassay methods cannot be used interchangably.When changing PSA assays in the course of monitoring apatient, additional sequential testing should be carriedout to confirm baseline values. Thyroid Stimulating Hormone (TSH) 4.17 uIU/mL 0.358-3.74 [facility] Vitamin D 25-Hydroxy 44.1 ng/mL [facility] Comment on above: Vitamin D 25(OH) Sta tus Range Deficiency <20 ng/mL (50nmol/L) Insufficiency 20 - 30 ng/mL (50 - 75 nmol/L) Sufficiency 30 - 100 ng/mL (75 - 250 nmol/L) Toxicity >100 ng/mL (>250 nmol/L) Platelets bldOrdered By: Dr. Camacho on 04-06-2023 Platelets (Bld) [#/Vol] 193 10*3/uL 150-450 [facility] Serum or plasma albumin henrry urement (mass/volume)Ordered By: Dr. Camacho on 04-06-2023 Albumin [Mass/Vol] 3.3 g/dL 3.2-5.0 [facility] Serum or plasma albumin/glob ulin mass ratioOrdered By: Dr. Camacho on 04-06-2023 Albumin/Globulin [Mass ratio] 0.8 {ratio} 0.9-2.4 [facility] Serum or plasma calcium henrry urement (mass/volume)Ordered By: Dr. Camacho on 04-06-2023 Calcium [Mass/Vol] 8.6 mg/dL 8.5-10.1 [facility] Serum or plasma cholesterol in HDL measurement (mass/volume)Ordered By: Dr. Camacho on 04-06-2023 Cholesterol in HDL [Mass/Vol] 53 mg/dL >40 [facility] Comment on above: The drugs N-Acetylcy steine and Metamizole may falsely depress this assay. Reference Range HDL <40 mg/dL Low HDL Cholesterol HDL >or= 60 mg/dL High HDL Cholesterol Serum or plasma cholesterol in VLDL measurement (mass/volume)Ordered By: Dr. Camacho on 04-06-2023 Cholesterol in VLDL [Mass/Vol] 16 mg/dL 5-40 [facility] Serum or plasma creatinine m easurement (mass/volume)Ordered By: Dr. Camacho on 04-06-2023 Creatinine [Mass/Vol] 0.85 mg/dL 0.70-1.30 [facility] Comment on above: The validity of the calculated GFR & GFRAA in patients over 70 years has not been determined. Clinical correlation is essential. Serum or plasma low density lipoprotein (LDL) cholesterol measurement (mass/volume)Ordered By: Dr. Camacho on 04-06-2023 Cholesterol in LDL [Mass/Vol] 91 mg/dL 0-130 [facility] Serum or plasma urea nitroge n measurement (mass/volume)Ordered By: Dr. Camacho on 04-06-2023 Urea nitrogen [Mass/Vol] 19 mg/dL 7-18 [facility] Thin prep Papanicolaou smear with manual screeningOrdered By: Dr. Camacho on 04-06-2023 Thin prep Papanicolaou smear with manual screening 16 U/L 15-37 [facility] Thin prep Papanicolaou smear with manual screening 6 5-15 [facility] Absolute lymphocyte counton 03-21-2022 Lymphocytes Auto (Unsp spec) [#/Vol] 2.46 10*3/uL 0.83-4.51 [facility] Work Phone: Basophil percentageon 2021 Basophils/100 WBC (Bld) 0.6 % 0-1 [facility] Work Phone: Eosinophils/100 WBC (Bld) 1.9 % 0-5 [facility] Work Phone: Neutrophils (Bld) [#/Vol] 3.2 10*3/uL 2.0-7.7 [facility] Work Phone: Neutrophils/100 WBC (Bld) 49.5 % 47-70 [facility] Work Phone: [phone] WBC (Bld) [#/Vol] 6.4 10*3/uL 4.4-11.0 [facility] Work Phone: Blood erythrocytes count (nu mber/volume)on 03-21-2022 RBC (Bld) [#/Vol] 4.67 10*6/uL 4.6-6.2 [facility] Work Phone: Blood hemoglobin measurement (mass/volume)on 03-21-2022 Hemoglobin (Bld) [Mass/Vol] 14.7 g/dL 13.0-16.5 [facility] Work Phone: Blood lymphocytes/100 leukoc yteson 03-21-2022 Lymphocytes/100 WBC (Bld) 38.2 % 19-41 [facility] Work Phone: Blood monocytes/100 leukocyt eson 03-21-2022 Monocytes/100 WBC (Bld) 9.5 % 0-10 [facility] Work Phone: Blood platelet mean volumeon 03-21-2022 Platelet mean volume (Bld) [Entitic vol] 11.1 fL 6.2-12.0 [facility] Work Phone: Determination of erythrocyte mean corpuscular volume (MCV)on 03-21-2022 MCV (RBC) [Entitic vol] 93.8 fL 80-94 [facility] Work Phone: Hematocrit Auto (Bld) [Volum e fraction]on 03-21-2022 Hematocrit (Bld) [Volume fraction] 43.8 % 40-54 [facility] Work Phone: Laboratory - Hematology and Cell countson 03-21-2022 Erythrocyte distribution width (RBC) [Entitic vol] 43.9 fL 35.1-43.9 [facility] Work Phone: Erythrocyte distribution width (RBC) [Ratio] 12.8 % 11.6-14.6 [facility] Work Phone: Immature granulocytes/100 WBC (Bld) 0.300 % 0.0-0.9 [facility] Work Phone: Comment on above: IG% - Immature Granu locytes (promyelocytes, myelocytes and metamyelocytes) > 1% indicates that a LEFT SHIFT is Present. MCH (RBC) [Entitic mass] 31.5 pg 27.0-32.0 [facility] Work Phone: Nucleated RBC/100 WBC (Bld) [Ratio] 0 % 0-5 [facility] Work Phone: MCHC Auto (RBC) [Mass/Vol]on 03-21-2022 MCHC (RBC) [Mass/Vol] 33.6 g/dL 32-36 [facility] Work Phone: Platelets bldon 03-21-2022 Platelets (Bld) [#/Vol] 204 10*3/uL 150-450 [facility] Work Phone: Absolute lymphocyte counton 02-06-2022 Lymphocytes Auto (Unsp spec) [#/Vol] 2.60 10*3/uL 0.83-4.51 [facility] Work Phone: Basophil percentageon 2021 Basophils/100 WBC (Bld) 0.7 % 0-1 [facility] Work Phone: [phone] Bilirubin [Mass/Vol] 0.80 mg/dL 0.20-1.00 [facility] Work Phone: [phone] Comment on above: For patients on eltr ombopag therapy, use of [facility] TBIL is not recommended. Chloride [Moles/Vol] 109 mmol/L 98-107 [facility] Work Phone: Cholesterol [Mass/Vol] 174 mg/dL <200 [facility] Work Phone: [phone] Comment on above: <200 mg/dL Desirable 200-240 mg/dL Borderline >240 mg/dL High Risk Eosinophils/100 WBC (Bld) 2.2 % 0-5 [facility] Work Phone: Glucose [Mass/Vol] 97 mg/dL 74-106 [facility] Work Phone: Neutrophils (Bld) [#/Vol] 2.7 10*3/uL 2.0-7.7 [facility] Work Phone: [phone] Neutrophils/100 WBC (Bld) 44.3 % 47-70 [facility] Work Phone: [phone] Potassium [Moles/Vol] 3.8 mmol/L 3.5-5.1 [facility] Work Phone: [phone] Protein [Mass/Vol] 7.4 g/dL 6.4-8.2 [facility] Work Phone: Sodium [Moles/Vol] 141 mmol/L 136-145 [facility] Work Phone: Triglyceride [Mass/Vol] 119 mg/dL [facility] Work Phone: Comment on above: The drugs N-Acetylcy steine and Metamizole may falsely depress this assay.Serum Triglycerides Reference Interval Normal <150 mg/dL Borderline high 150 - 199 mg/dL High 200 - 499 mg/dL Very High > or = 500 mg/dL WBC (Bld) [#/Vol] 6.0 10*3/uL 4.4-11.0 [facility] Work Phone: Blood erythrocytes count (nu mber/volume)on 02-06-2022 RBC (Bld) [#/Vol] 4.55 10*6/uL 4.6-6.2 [facility] Work Phone: Blood hemoglobin measurement (mass/volume)on 02-06-2022 Hemoglobin (Bld) [Mass/Vol] 14.4 g/dL 13.0-16.5 [facility] Work Phone: Blood lymphocytes/100 leukoc yteson 02-06-2022 Lymphocytes/100 WBC (Bld) 43.1 % 19-41 [facility] Work Phone: Blood monocytes/100 leukocyt eson 02-06-2022 Monocytes/100 WBC (Bld) 9.5 % 0-10 [facility] Work Phone: Blood platelet mean volumeon 02-06-2022 Platelet mean volume (Bld) [Entitic vol] 11.0 fL 6.2-12.0 [facility] Work Phone: Determination of erythrocyte mean corpuscular volume (MCV)on 02-06-2022 MCV (RBC) [Entitic vol] 94.9 fL 80-94 [facility] Work Phone: Hematocrit Auto (Bld) [Volum e fraction]on 02-06-2022 Hematocrit (Bld) [Volume fraction] 43.2 % 40-54 [facility] Work Phone: Laboratory - Chemistry and C hemistry - challengeon 02-06-2022 ALP [Catalytic activity/Vol] 76 U/L 45-117 [facility] Work Phone: [phone] ALT [Catalytic activity/Vol] 23 U/L 16-61 [facility] Work Phone: [phone] CO2 [Moles/Vol] 25.0 mmol/L 21.0-32.0 [facility] Work Phone: Free T4 [Mass/Vol] 1.08 ng/dL 0.76-1.46 [facility] Work Phone: [phone] Globulin (S) [Mass/Vol] 4.0 g/dL 2.2-4.2 [facility] Work Phone: [phone] Urea nitrogen/Creatinine [Mass ratio] 20.8 mg/mg 10-20 [facility] Work Phone: Laboratory - Hematology and Cell countson 02-06-2022 Erythrocyte distribution width (RBC) [Entitic vol] 46.5 fL 35.1-43.9 [facility] Work Phone: [phone] Erythrocyte distribution width (RBC) [Ratio] 13.3 % 11.6-14.6 [facility] Work Phone: [phone] Immature granulocytes/100 WBC (Bld) 0.200 % 0.0-0.9 [facility] Work Phone: Comment on above: IG% - Immature Granu locytes (promyelocytes, myelocytes and metamyelocytes) > 1% indicates that a LEFT SHIFT is Present. MCH (RBC) [Entitic mass] 31.6 pg 27.0-32.0 [facility] Work Phone: [phone] Nucleated RBC/100 WBC (Bld) [Ratio] 0 % 0-5 [facility] Work Phone: [phone] MCHC Auto (RBC) [Mass/Vol]on 02-06-2022 MCHC (RBC) [Mass/Vol] 33.3 g/dL 32-36 [facility] Work Phone: No Panel Informationon 02-06 Estimated GFR (MDRD) Amer 106 mL/min >60 [facility] Work Phone: Comment on above: GFR Calc Estimated GFR (MDRD) Non-Af Amer 87 mL/min >60 [facility] Work Phone: Comment on above: Non- GFR Calc Free Triiodothyronine (T3) pg/dL 2.9 pg/mL 2.18-3.98 [facility] Work Phone: Thyroid Stimulating Hormone (TSH) 2.88 uIU/mL 0.358-3.74 [facility] Work Phone: Vitamin D 25-Hydroxy 30.8 ng/mL [facility] Work Phone: Comment on above: Vitamin D 25(OH) Sta tus Range Deficiency <20 ng/mL (50nmol/L) Insufficiency 20 - 30 ng/mL (50 - 75 nmol/L) Sufficiency 30 - 100 ng/mL (75 - 250 nmol/L) Toxicity >100 ng/mL (>250 nmol/L) Platelets bldon 02-06-2022 Platelets (Bld) [#/Vol] 189 10*3/uL 150-450 [facility] Work Phone: Serum or plasma albumin henrry urement (mass/volume)on 02-06-2022 Albumin [Mass/Vol] 3.4 g/dL 3.2-5.0 [facility] Work Phone: Serum or plasma albumin/glob ulin mass ratioon 02-06-2022 Albumin/Globulin [Mass ratio] 0.8 {ratio} 0.9-2.4 [facility] Work Phone: Serum or plasma calcium henrry urement (mass/volume)on 02-06-2022 Calcium [Mass/Vol] 8.7 mg/dL 8.5-10.1 [facility] Work Phone: Serum or plasma cholesterol in HDL measurement (mass/volume)on 02-06-2022 Cholesterol in HDL [Mass/Vol] 53 mg/dL [facility] Work Phone: Comment on above: The drugs N-Acetylcy steine and Metamizole may falsely depress this assay. Reference Range HDL <40 mg/dL Low HDL Cholesterol HDL >or= 60 mg/dL High HDL Cholesterol Serum or plasma cholesterol in VLDL measurement (mass/volume)on 02-06-2022 Cholesterol in VLDL [Mass/Vol] 24 mg/dL 5-40 [facility] Work Phone: Serum or plasma creatinine m easurement (mass/volume)on 02-06-2022 Creatinine [Mass/Vol] 0.91 mg/dL 0.70-1.30 [facility] Work Phone: Comment on above: The validity of the calculated GFR & GFRAA in patients over 70 years has not been determined. Clinical correlation is essential. Serum or plasma low density lipoprotein (LDL) cholesterol measurement (mass/volume)on 02-06-2022 Cholesterol in LDL [Mass/Vol] 97 mg/dL 0-130 [facility] Work Phone: Serum or plasma urea nitroge n measurement (mass/volume)on 02-06-2022 Urea nitrogen [Mass/Vol] 19 mg/dL 7-18 [facility] Work Phone: Thin prep Papanicolaou smear with manual screeningon 02-06-2022 Thin prep Papanicolaou smear with manual screening 16 U/L 15-37 [facility] Work Phone: Thin prep Papanicolaou smear with manual screening 7 5-15 [facility] Work Phone: CNOVon 01-27-2019 CNOV Office Visit (GENSWS ) CRYSTAL HAUSER ([id number]) 1950 Date Time Provider Department 01/27/19 1:40 PM LENNY DIALLO During your visit today, we recorded the following information about you: Temperature Weight 97.7 degrees 92.1 kg Lenny Diallo MD 01/27/2019 8:15 PM Signed FOLLOW UP VISIT - POST OP - ANAL FISTULA NAME: Crystal Hauser CLINIC NO.: [id number] DATE OF SERVICE: 01/27/2019 : 1950 REFERRING PHYSICIAN: Chaparro Sánchez MD Crystal is a patient I am following for an anal fistula. I performed performed an examination under anesthesia with fistulotomy and seton placement on 11/08/18. The patient has been doing well post-operatively with no concerns noted at his initial post-op visit on 11/15/18. Denies issues with bowel movements. Has been resting and doing soaks as instructed. I performed an examination under anesthesia, second stage fistulotomy on January 19, 2019. The patient currently notes no issues with fecal incontinence. his appetite has been good. he denies fever, chills or abdominal pain. he does notes no incisional discomfort. VITALS: Temperature 36.5 ?C (97.7 ?F), temperature source Temporal, weight 92.1 kg (203 lb). On examination, the second stage fistulotomy site is healing with no signs of infection or other challenges Assessment IMPRESSION: Status post initial examination under anesthesia with fistulotomy followed by second stage fistulotomy for a posterior anal fistula PLAN: If the patient notes any problems or signs of wound infections, he should contact me immediately. Diagnoses: (K60.3) Anal fistula (primary encounter diagnosis) Return to Clinic: The patient is instructed to follow-up with me as needed. Lenny Diallo MD Referring Provider: LENNY DIALLO [[id number]] Allergies As of Date: 01/27/2019 (No Known Allergies) Date Reviewed: 01/27/2019 Reviewed by: Lenny Diallo - Fully Assessed Reason for Visit: Post Op [174] Primary Visit Diagnosis:Anal fistula [K60.3] Prescriptions as of 01/27/2019 Sig: SIMVASTATIN 40 MG TABLET Take 1 tablet by mouth daily * MULTIVITAMIN TABLET Take 1 tablet by mouth once d* Problem List As Of Date 01/27/2019 Noted Resolved HYPERLIPIDEMIA NEC/NOS [E78.5] SCREENING MAL NEOP-PROSTATE [Z12.5] INVALID FOR* Obesity [E66.9] INVALID FOR* Letter Text Encounter Status:Closed by LENNY DIALLO MD on 01/27/[address] [facility] PROGRESSon 01-27-2019 Protein mass conc HNO ID: [id number] Author: Lenny Diallo Service: ? Author Type: Physician Type: Progress Notes Filed: 01/27/2019 8:15 PM Note Text: FOLLOW UP VISIT - POST OP - ANAL FISTULA NAME: Crystal Hauser [facility] NO.: [id number] DATE OF SERVICE: 01/27/2019 : 1950 REFERRING PHYSICIAN: Chaparro Sánchez MD Crystal is a patient I am following for an anal fistula. I performed performed an examination under anesthesia with fistulotomy and seton placement on 11/08/18. The patient has been doing well post-operatively with no concerns noted at his initial post-op visit on 11/15/18. Denies issues with bowel movements. Has been resting and doing soaks as instructed. I performed an examination under anesthesia, second stage fistulotomy on January 19, 2019. The patient currently notes no issues with fecal incontinence. his appetite has been good. he denies fever, chills or abdominal pain. he does notes no incisional discomfort. VITALS: Temperature 36.5 ?C (97.7 ?F), temperature source Temporal, weight 92.1 kg (203 lb). On examination, the second stage fistulotomy site is healing with no signs of infection or other challenges Assessment IMPRESSION: Status post initial examination under anesthesia with fistulotomy followed by second stage fistulotomy for a posterior anal fistula PLAN: If the patient notes any problems or signs of wound infections, he should contact me immediately. Diagnoses: (K60.3) Anal fistula (primary encounter diagnosis) Return to Clinic: The patient is instructed to follow-up with me as needed. Lenny Diallo MD [facility] ANES Neo 01-19-2019 ANES POST HNO ID: [id number] Author: Dean Busby Service: Anesthesiology Author Type: Anesthesiologist Type: Anesthesia PostOp Filed: 01/19/2019 5:49 PM Note Text: POST ANESTHESIA EVALUATION NOTE SERVICE DATE: 01/19/2019 SERVICE TIME: 5:49 PM : 1950 Vitals: 01/19/19 1451 01/19/19 1738 Temp: 36.6 ?C (97.9 ?F) 36.7 ?C (98.1 ?F) 01/19/19 1451 01/19/19 1738 01/19/19 1745 BP: 145/78 135/85 147/93 01/19/19 1451 01/19/19 1738 01/19/19 1745 Pulse: 69 76 71 01/19/19 1451 01/19/19 1738 01/19/19 1745 Resp: 18 16 16 01/19/19 1451 01/19/19 1738 01/19/19 1745 SpO2: 97% 94% 95% Validated Vital Signs: Yes POST ANES STATUS: No apparent anesthetic complications. The patient is appropriately hydrated with stable respiratory and cardiovascular status. Patient has safe and adequate airway control. The patient has appropriate pain relief and no significant post operative nausea or vomiting. The patient has achieved baseline mental status. Further assessment by Anesthesia Service: None Other Remarks: SIGNATURE: Dean Busby MD PATIENT NAME: Crystal Hauser DATE: January 19, 2019 TIME: 5:49 PM PAGER/CONTACT #: [phone] [facility] ANES PREOPon 01-19-2019 ANES PREOP HNO ID: [id number] Author: Dean Busby Service: Anesthesiology Author Type: Anesthesiologist Type: Anesthesia PreOp Filed: 01/19/2019 3:05 PM Note Text: ANESTHESIOLOGY DAY OF SURGERY NOTE SERVICE DATE: 01/19/2019 SERVICE TIME: 3:05 PM : 1950 Procedure(s) (LRB): FISTULOTOMY ANAL SECOND STAGE (N/A) Surgeon(s): Lenny Diallo Estimated body mass index is 31.42 kg/m? as calculated from the following: Height as of 01/04/19: 174 cm (5' 8.5). Weight as of 01/04/19: 95.1 kg (209 lb 11.2 oz). Most recent hematocrit and potassium results: Potassium 4.1 10/02/2014 ANES DOS/PREOP NOTE: Vitals: 01/19/19 1451 BP: 145/78 Pulse: 69 Resp: 18 Temp: 36.6 ?C (97.9 ?F) SpO2: 97% ACTIVE PROBLEM LIST Other and Unspecified Hyperlipidemia Special Screening for Malignant Neoplasm of Prostate Obesity PAST MEDICAL HISTORY Diagnosis Date - Kidney stones - Other and unspecified hyperlipidemia PAST SURGICAL HISTORY Procedure Laterality Date - COLONOSCOPY 2018 - PROCEDURE RM-FISTULOTOMY,SUBMU 11/08/2018 EUA,fistulotomy with seton placement. FAMILY HISTORY Problem Relation Age of Onset - Cancer Mother cancer of uncertain primary - Ischemic Heart Disease Father [place] age 75 - Lipids Sister Social History: Social History Tobacco Use - Smoking status: Never Smoker - Smokeless tobacco: Never Used Substance Use Topics - Alcohol use: No - Drug use: No No current facility-administered medications on file prior to encounter. Current Outpatient Medications on File Prior to Encounter: simvastatin (ZOCOR) 40 mg tablet Take 1 tablet by mouth daily at bedtime. multivitamin tablet Take 1 tablet by mouth once daily. Current Facility-Administered Medications: lactated ringers infusion 30 mL/hr INTRAVENOUS CONTINUOUS Lenny T Yoel Last Rate: 30 mL/hr at 01/19/19 1500 30 mL/hr at 01/19/19 1500 clindamycin iv piggyback 900 mg in D5W 50 mL (CLEOCIN) 900 mg INTRAVENOUS Pre-Op Once Lenny T Yoel Allergies: ALLERGIES No Known Allergies DOS EXAM: Adequate NPO status: Yes Anesthetic risks, benefits, alternatives, personnel and consent discussed: Yes Patient agrees to proceed: Yes Previous Anesthesia: No history of adverse event. Airway Assessment: MP 2; Neck ROM: Full ROM without neurologic symptoms; Airway Evaluation: No significant abnormalities Symptoms of Sleep Apnea: None Dentition: Teeth intact Additional Physical Exam: Lungs: Patient health status unchanged since recent history and physical. See history and physical for exam findings. Cardiac: Patient health status unchanged since recent history and physical. See history and physical for exam findings. Additional Pertinent Findings: N/A Blood Products: Not anticipated for this procedure. Anesthetic Plan: General, Standard ASA Monitors Pain Management Plan: Parenteral or Oral ASA Class: 2 Other Medical Problems: None I have interviewed and examined the patient. I have reviewed the medical record and/or the pre-anesthesia evaluation, pertinent labs, and test results. Significant changes in the patient's condition since the History and Physical, not otherwise documented in primary service progress notes: No This contains updated information obtained within 48 hours of Surgery/Procedure. SIGNATURE: Dean Busby MD PATIENT NAME: Crystal Hauser DATE: January 19, 2019 TIME: 3:05 PM CSN: [id number] [facility] BRIEF OP NOTon 01-19-2019 BRIEF OP NOT HNO ID: [id number] Author: Lenny Diallo Service: General Surgery Author Type: Physician Type: Brief Op Note Filed: 01/19/2019 5:36 PM Note Text: BRIEF OPERATIVE NOTATION FOR SURGICAL PROCEDURE. Crystal Hauser 1950 [id number] male LOG ID: [id number] Surgery/Procedure Date: 01/19/2019 Incision/Procedure Start Time: 5:22 PM Incision Close/Procedure End Time: 5:31 PM Surgeon(s)/Procedural ist(s) and Screen Room Operator(s): Surgeon(s) and Role: * Lenny Diallo - Primary No Additional Staff REFERRING PHYSICIAN: Outpatient DEPT: [facility] PROVIDER: Sidney POS: [id number] ANESTHESIA: Monitored Anesthesia Care ASA CLASS: 2 - mild DIAGNOSIS: anal fistula PROCEDURE: Examination Under Anesthesia, Anal Fistula - second stage - [id number] IVF: 400 EBL: minimal Specimens: none ADDITIONAL DIAGNOSES: FINDINGS: COMPLICATIONS: None PMHx - PAST MEDICAL HISTORY Diagnosis Date - Kidney stones - Other and unspecified hyperlipidemia COMORBIDITIES - None Post Op Occurrences - None Wound Classification - Clean Contaminated Operative note dictated in the dictation system. - [id number] Lenny Diallo MD [facility] HISTORY PHYSICALon 9 HISTORY PHYSICAL HNO ID: [id number] Author: Lenny Diallo Service: General Surgery Author Type: Physician Type: HANDP Filed: 01/19/2019 2:22 PM Note Text: HISTORY AND PHYSICAL ? Crystal Hauser 1950 ? ? REFERRING PHYSICIAN: Chaparro Sánchez MD ? CHIEF COMPLAINT: Post Op ? HPI: Crystal is a patient I am following with Dr. Diallo for an anal fistula. ?? ? Dr. Diallo performed performed an examination under anesthesia with fistulotomy and seton placement??on 11/08/18. ??The patient has been doing well post-operatively with no concerns noted at his initial post-op visit on 11/15/18. ?Denies issues with bowel movements. ?Has been resting and doing soaks as instructed. Notes he is feeling much better. Minimal drainage currently. He presents for wound check and schedule stage 2 fistulotomy. ? Patient notes no changes to his health since his stage I operation. ?He denies any known cardiac or pulmonary issues. ?Denies any problems with sedation in the past. ? ? ? PAST?MEDICAL?HISTORY PAST MEDICAL HISTORY Diagnosis Date - Kidney stones ? - Other and unspecified hyperlipidemia ? ? PAST?SURGICAL?HISTORY PAST SURGICAL HISTORY Procedure Laterality Date - COLONOSCOPY ? 2018 - PROCEDURE RM-FISTULOTOMY,SUBMU ? 11/08/2018 ? EUA,fistulotomy with seton placement. ? ? ? CURRENT?MEDICATIONS ? Current Outpatient Medications: simvastatin (ZOCOR) 40 mg tablet Take 1 tablet by mouth daily at bedtime. multivitamin tablet Take 1 tablet by mouth once daily. ? No current facility-administered medications for this visit. ? ALLERGIES: Patient has no known allergies. ? PERSONAL HISTORY: SOCIAL?HISTORY Social History Socioeconomic History Marital status: Spouse name: Not on file Number of children: Not on file Years of education: Not on file Highest education level: Not on file Social Needs Financial resource strain: Not on file Food insecurity - worry: Not on file Food insecurity - inability: Not on file Transportation needs - medical: Not on file Transportation needs - non-medical: Not on file Occupational History Not on file Tobacco Use Smoking status: Never Smoker Smokeless tobacco: Never Used Substance and Sexual Activity Alcohol use: No Drug use: No Sexual activity: Not on file Other Topics Concerns: Not on file Social History Narrative Not on file ? FAMILY HISTORY: FAMILY?HISTORY FAMILY HISTORY Problem Relation Age of Onset - Cancer Mother ? ? cancer of uncertain primary - Ischemic Heart Disease Father ? ? [place] age 75 - Lipids Sister ? ? REVIEW OF SYSTEMS GENERAL:?No weight loss, malaise or fevers HEENT:?Negative for frequent or significant headaches, No changes in hearing or vision, no nose bleeds or other nasal problems NECK:?Negative for lumps, goiter, pain and significant neck swelling RESPIRATORY:?Negative for cough, hemoptysis, wheezing, COPD, dyspnea or shortness of breath CARDIOVASCULAR:?Negat dkue for chest pain, leg swelling, hypertension, CHF or palpitations GI:?See HPI SKIN:?See HPI PSYCH:?Negative for sleep disturbance, mood disorder and recent psychosocial stressors HEMATOLOGY/LYMPHOLOGY :?Negative for prolonged bleeding, bruising easily or swollen nodes ENDOCRINE:?Negative for cold or heat intolerance, polyuria, polydipsia and goiter ? ? ? PHYSICAL EXAMINATION: ? General: The patient is 68 year old male, well nourished, well hydrated in no acute distress. The patient is oriented to time, place, and person. ? VITALS: Blood pressure 142/78, pulse 79, temperature 36.7 ?C (98 ?F), temperature source Temporal Artery, resp. rate 16, height 174 cm (5' 8.5), weight 95.1 kg (209 lb 11.2 oz), SpO2 96 %. Body mass index is 31.42 kg/m?. ? ? HEENT: Normal cephalic, ataumatic, pupils are equally round, sclera are anicteric, mucous membranes are moist, oropharynx is clear. Neck has no masses, asymmetry or lymphadenopathy. ? Respiratory: Clear to auscultation and percussion. Normal respiratory excursion and pattern. ? Cardiac: Examination is regular rate and rhythm. Normal S1/S2 ? Extremities: no clubbing, cyanosis or edema. No adenopathy. ? On examination, the seton is in place. ?The site is granulating nicely with no signs of irritation ? ? ? LABORATORY VALUES: As Noted ? RADIOLOGIC STUDIES: As Noted ? IMPRESSION: s/p examination under anesthesia, anal fistulotomy with seton placement, healing well ? PLAN: I have reviewed my findings with Dr. Diallo. He plans to proceed with stage 2 fistulotomy. Consent: The proposed procedure, risks, benefits, and alternatives were discussed with the patient in detail. All the patient's questions were answered, and the patient voiced understanding. The patient desires to proceed with surgery. ? Will plan for light bowel prep with 1 day clear fluids and miralax ? Diagnoses: (K60.3) Anal fistula (primary encounter diagnosis) ? Patient verbalized understanding of all above and agreed with the plan ? Sachin Watts PA-C [facility] HOSPon 01-19-2019 HOSP Patient:Crystal Hauser MRN: Height:5' 8.5(1.74 m) Weight:209 lb 11.2 oz (95.119 kg) Outpatient Medications as of 01/19/19: simvastatin (ZOCOR) 40 mg tablet multivitamin tablet Admission/Clinic Administered Medications as of 01/19/19: lactated ringers infusion clindamycin iv piggyback 900 mg in D5W 50 mL (CLEOCIN) Problem List: Other and unspecified hyperlipidemia [E78.5] Special screening for malignant neoplasm of prostate [Z12.5] Obesity [E66.9] Allergies: No Known Allergies Date Verified:01/19/19 Lab Values No results within the last 30 days for the following basenames: K,HCT Progress Notes ([facility]): Cami Medellin RN 01/10/2019 12:31 PM Signed We received a call from pre admission testing stating that Mr. Hauser refused to have a PAT appointment. He states that he is comfortable with what to expect as this is stage 2 of his surgery. He was last seen in the office on and his surgery is scheduled for 01/19/2019. Cami Medellin RN Progress Notes ([facility]): Landon Juan 01/04/2019 2:36 PM Signed 01-19-2019 Fistulotomy stage two Landon Martinez [facility] OPERATIVE NOon 01-19-2019 OPERATIVE NO HNO ID: [id number] Author: Lenny Diallo Service: General Surgery Author Type: Physician Type: Operative Report Filed: 01/20/2019 7:00 AM Note Text: [facility] - Operative Report CRYSTAL HAUSER : 1950 AGE: 68. SEX: M PATIENT TYPE: A HOSP [facility]: [facility] LOCATION: [facility] ATTENDING PHYSICIAN: LENNY DIALLO CSN NUMBER: [id number] DATE OF SURGERY/PROCEDURE: 01/19/2019 INCISION/PROCEDURE START TIME: 5:22. INCISION CLOSE/PROCEDURE END TIME: 5:31. PREOPERATIVE DIAGNOSIS: Anal fistula with seton in place. POSTOPERATIVE DIAGNOSIS: No additional abnormalities noted. SURGEON: Lenny Diallo M.D. DATA CLERK: No Additional Staff SURGERY/PROCEDURE: Examination under anesthesia, second-stage fistulotomy. ANESTHESIA: Conscious sedation with local. LOG ID NUMBER: [id number]. ANESTHESIOLOGIST: Dean Busby. ASA: 2. IV FLUIDS: 400 mL. EBL: Minimal. URINE OUTPUT: No catheter. FINDINGS: As described above. SPECIMEN: None. DRAINS: None. COMPLICATIONS: None. DISPOSITION: The patient was taken to PACU in stable condition. DESCRIPTION OF PROCEDURE: The patient was brought to the operative suite. Sign-in was performed verifying the patient, site, procedure, position, critical nursing information, VTE, and antibiotic prophylaxis. The patient received 900 mg of clindamycin. Since this was a local MAC case, the patient got the SCDs. He was positioned in the prone ralph-knife position with care being taken to avoid pressure points. Following this, IV sedation was undertaken. Following this, the perineal area was prepped and draped in usual fashion. Time-out was performed verifying patient, site, procedure, position. Field block of 0.5% lidocaine, 0.25% Marcaine, 50:50 mixture was injected around the perianal area, by digital exam revealed no other palpable abnormalities. The patient had noted he felt 2 months previously noted pain near the tip of his coccyx. There were no signs of pilonidal cyst or infection in this area. There were no deformities on palpation of the coccyx externally and via digital rectal exam revealed no bony abnormalities, defects, or extra movement. At this point, bivalve anoscopy was performed, which revealed no other specific abnormalities other than the seton present for the second-stage fistulotomy with no additional tracts or further abnormalities. At this point, the suture was grasped. Electrocautery was used to divide the sphincter through the seton, and the sphincter and the seton removed in its entirety. Electrocautery was then used for hemostasis. Following this, more local anesthetic mix was injected at the site. Dibucaine-impregnated Gelfoam was placed in the anal canal. Dressing applied, mesh pants to hold the dressing in place. The patient was returned to the supine position, awakened, and brought to recovery room in stable condition. Lenny Diallo M.D. RG:[id number] /[id number] [facility] PT EDon 01-19-2019 PT ED HNO ID: [id number] Author: River SnyderRn) ANKITA Mariscal Service: Nursing Author Type: Registered Nurse Type: Patient Education Filed: 01/19/2019 6:37 PM Note Text: POST OP LEARNING RESPONSE INSTRUCTION PROVIDED TO: Patient and family member METHOD OF INSTRUCTION: Written instruction - handouts Verbal instruction PATIENT / FAMILY RESPONSE: Verbalizes understanding of: POST-OPERATIVE INSTRUCTIONS-Correct actions to take to reduce postoperative complications FOLLOW-UP PLAN: Patient instructed to call with any further issues SUPPLEMENTAL MATERIAL: None REFERRAL (RECOMMENDATION): None Electronically Signed By: River Mariscal RN In Department: [facility] SURGERY [facility] PT ED HNO ID: [id number] Author: Loan SnyderRn) ANKITA Rosas Service: Nursing Author Type: Registered Nurse Type: Patient Education Filed: 01/19/2019 2:50 PM Note Text: PRE OP LEARNING ASSESSMENT PROCEDURE/SURGERY: SURGERY: READINESS TO LEARN COGNITIVE ABILITY: Alert and oriented MOTIVATION TO LEARN: Eager FAMILY SUPPORT: High - Very involved in pt care PATIENT LEARNS BEST BY: Verbal Instruction FACTORS AFFECTING LEARNING: None PHYSICAL LIMITATIONS AFFECTING LEARNING: None Electronically Signed By: Loan Rosas RN In Department: [facility] SURGERY [facility] CNOVon 01-04-2019 CNOV Office Visit (GENSWS ) CRYSTAL HAUSER ([id number]) 1950 M Date Time Provider Department 01/04/19 1:50 PM SACHIN WATTS (PA) During your visit today, we recorded the following information about you: Temperature Pulse Respiration Blood pressure 98 degrees 79/minute 16/minute 142/78 Weight Height 95.1 kg 1.74 m Sachin Watts PA-C 01/09/2019 10:21 PM Signed HISTORY AND PHYSICAL Crystal Doug Hauser 1950 REFERRING PHYSICIAN: Chaparro Sánchez MD CHIEF COMPLAINT: Post Op HPI: Crystal is a patient I am following with Dr. Diallo for an anal fistula. ? Dr. Diallo performed performed an examination under anesthesia with fistulotomy and seton placement??on 11/08/18. ??The patient has been doing well post-operatively with no concerns noted at his initial post-op visit on 11/15/18. Denies issues with bowel movements. Has been resting and doing soaks as instructed. Notes he is feeling much better. Minimal drainage currently. He presents for wound check and schedule stage 2 fistulotomy. ? Patient notes no changes to his health since his stage I operation. He denies any known cardiac or pulmonary issues. Denies any problems with sedation in the past. PAST MEDICAL HISTORY Diagnosis Date - Kidney stones - Other and unspecified hyperlipidemia PAST SURGICAL HISTORY Procedure Laterality Date - COLONOSCOPY 2017 - PROCEDURE RM-FISTULOTOMY,SUBMU 11/08/2018 EUA,fistulotomy with seton placement. Current Outpatient Medications: simvastatin (ZOCOR) 40 mg tablet Take 1 tablet by mouth daily at bedtime. multivitamin tablet Take 1 tablet by mouth once daily. No current facility-administered medications for this visit. ALLERGIES: Patient has no known allergies. PERSONAL HISTORY: Social History Socioeconomic History Marital status: Spouse name: Not on file Number of children: Not on file Years of education: Not on file Highest education level: Not on file Social Needs Financial resource strain: Not on file Food insecurity - worry: Not on file Food insecurity - inability: Not on file Transportation needs - medical: Not on file Transportation needs - non-medical: Not on file Occupational History Not on file Tobacco Use Smoking status: Never Smoker Smokeless tobacco: Never Used Substance and Sexual Activity Alcohol use: No Drug use: No Sexual activity: Not on file Other Topics Concerns: Not on file Social History Narrative Not on file FAMILY HISTORY: FAMILY HISTORY Problem Relation Age of Onset - Cancer Mother cancer of uncertain primary - Ischemic Heart Disease Father [place] age 75 - Lipids Sister REVIEW OF [...] disturbance, mood disorder and recent psychosocial stressors HEMATOLOGY/LYMPHOLOGY : Negative for prolonged bleeding, bruising easily or swollen nodes ENDOCRINE: Negative for cold or heat intolerance, polyuria, polydipsia and goiter PHYSICAL EXAMINATION: General: The patient is 68 year old male, well nourished, well hydrated in no acute distress. The patient is oriented to time, place, and person. VITALS: Blood pressure 142/78, pulse 79, temperature 36.7 ?C (98 ?F), temperature source Temporal Artery, resp. rate 16, height 174 cm (5' 8.5), weight 95.1 kg (209 lb 11.2 oz), SpO2 96 %. Body mass index is 31.42 kg/m?. HEENT: Normal cephalic, ataumatic, pupils are equally round, sclera are anicteric, mucous membranes are moist, oropharynx is clear. Neck has no masses, asymmetry or lymphadenopathy. Respiratory: Clear to auscultation and percussion. Normal respiratory excursion and pattern. Cardiac: Examination is regular rate and rhythm. Normal S1/S2 Extremities: no clubbing, cyanosis or edema. No adenopathy. ? On examination, the seton is in place. The site is granulating nicely with no signs of irritation LABORATORY VALUES: As Noted RADIOLOGIC STUDIES: As Noted IMPRESSION: s/p examination under anesthesia, anal fistulotomy with seton placement, healing well PLAN: I have reviewed my findings with Dr. Diallo. He plans to proceed with stage 2 fistulotomy. Consent: The proposed procedure, risks, benefits, and alternatives were discussed with the patient in detail. All the patient's questions were answered, and the patient voiced understanding. The patient desires to proceed with surgery. Will plan for light bowel prep with 1 day clear fluids and miralax Diagnoses: (K60.3) Anal fistula (primary encounter diagnosis) Patient verbalized understanding of all above and agreed with the plan Sachin Watts PA-C Referring Provider: CHAPARRO SÁNCHEZ [[id number]] Allergies As of Date: 01/04/2019 (No Known Allergies) Date Reviewed: 01/04/2019 Reviewed by: Sachin Watts (Pa) - Fully Assessed Reason for Visit: Post Op [174] Primary Visit Diagnosis:Anal fistula [K60.3] Prescriptions as of 01/04/2019 Sig: SIMVASTATIN 40 MG TABLET Take 1 tablet by mouth daily * MULTIVITAMIN TABLET Take 1 tablet by mouth once d* Problem List As Of Date 01/04/2019 Noted Resolved HYPERLIPIDEMIA NEC/NOS [E78.5] SCREENING MAL NEOP-PROSTATE [Z12.5] INVALID FOR* Obesity [E66.9] INVALID FOR* Encounter Status:Closed by SACHIN WATTS PA-C on 01/09/19 Normal [facility] PROGRESSon 01-04-2019 Protein mass conc HNO ID: [id number] Author: Sachin Watts (Pa) Service: ? Author Type: Physician Screen Room Operator Type: Progress Notes Filed: 01/09/2019 10:21 PM Note Text: HISTORY AND PHYSICAL Crystal Hauser 1950 REFERRING PHYSICIAN: Chaparro Sánchez MD CHIEF COMPLAINT: Post Op HPI: Crystal is a patient I am following with Dr. Diallo for an anal fistula. ? Dr. Diallo performed performed an examination under anesthesia with fistulotomy and seton placement??on 11/08/18. ??The patient has been doing well post-operatively with no concerns noted at his initial post-op visit on 11/15/18. Denies issues with bowel movements. Has been resting and doing soaks as instructed. Notes he is feeling much better. Minimal drainage currently. He presents for wound check and schedule stage 2 fistulotomy. ? Patient notes no changes to his health since his stage I operation. He denies any known cardiac or pulmonary issues. Denies any problems with sedation in the past. PAST MEDICAL HISTORY Diagnosis Date - Kidney stones - Other and unspecified hyperlipidemia PAST SURGICAL HISTORY Procedure Laterality Date - COLONOSCOPY 2018 - PROCEDURE RM-FISTULOTOMY,SUBMU 11/08/2018 EUA,fistulotomy with seton placement. Current Outpatient Medications: simvastatin (ZOCOR) 40 mg tablet Take 1 tablet by mouth daily at bedtime. multivitamin tablet Take 1 tablet by mouth once daily. No current facility-administered medications for this visit. ALLERGIES: Patient has no known allergies. PERSONAL HISTORY: Social History Socioeconomic History Marital status: Spouse name: Not on file Number of children: Not on file Years of education: Not on file Highest education level: Not on file Social Needs Financial resource strain: Not on file Food insecurity - worry: Not on file Food insecurity - inability: Not on file Transportation needs - medical: Not on file Transportation needs - non-medical: Not on file Occupational History Not on file Tobacco Use Smoking status: Never Smoker Smokeless tobacco: Never Used Substance and Sexual Activity Alcohol use: No Drug use: No Sexual activity: Not on file Other Topics Concerns: Not on file Social History Narrative Not on file FAMILY HISTORY: FAMILY HISTORY Problem Relation Age of Onset - Cancer Mother cancer of uncertain primary - Ischemic Heart Disease Father [place] age 75 - Lipids Sister REVIEW OF [...] disturbance, mood disorder and recent psychosocial stressors HEMATOLOGY/LYMPHOLOGY : Negative for prolonged bleeding, bruising easily or swollen nodes ENDOCRINE: Negative for cold or heat intolerance, polyuria, polydipsia and goiter PHYSICAL EXAMINATION: General: The patient is 68 year old male, well nourished, well hydrated in no acute distress. The patient is oriented to time, place, and person. VITALS: Blood pressure 142/78, pulse 79, temperature 36.7 ?C (98 ?F), temperature source Temporal Artery, resp. rate 16, height 174 cm (5' 8.5), weight 95.1 kg (209 lb 11.2 oz), SpO2 96 %. Body mass index is 31.42 kg/m?. HEENT: Normal cephalic, ataumatic, pupils are equally round, sclera are anicteric, mucous membranes are moist, oropharynx is clear. Neck has no masses, asymmetry or lymphadenopathy. Respiratory: Clear to auscultation and percussion. Normal respiratory excursion and pattern. Cardiac: Examination is regular rate and rhythm. Normal S1/S2 Extremities: no clubbing, cyanosis or edema. No adenopathy. ? On examination, the seton is in place. The site is granulating nicely with no signs of irritation LABORATORY VALUES: As Noted RADIOLOGIC STUDIES: As Noted IMPRESSION: s/p examination under anesthesia, anal fistulotomy with seton placement, healing well PLAN: I have reviewed my findings with Dr. Diallo. He plans to proceed with stage 2 fistulotomy. Consent: The proposed procedure, risks, benefits, and alternatives were discussed with the patient in detail. All the patient's questions were answered, and the patient voiced understanding. The patient desires to proceed with surgery. Will plan for light bowel prep with 1 day clear fluids and miralax Diagnoses: (K60.3) Anal fistula (primary encounter diagnosis) Patient verbalized understanding of all above and agreed with the plan RAHEL Yan [facility] CNOVon 12-09-2018 CNOV Office Visit (GENSWS ) CRYSTAL HAUSER ([id number]) 1950 M Date Time Provider Department 12/09/18 9:30 AM LENNY DIALLO During your visit today, we recorded the following information about you: Pulse Blood pressure Weight 61/minute 130/82 96.5 kg Lenny Diallo MD 12/09/2018 5:55 PM Signed FOLLOW UP VISIT - POST OP NAME: Crystal Hauser CLINIC NO.: [id number] DATE OF SERVICE: December 09, 2018 : 1950 REFERRING PHYSICIAN: Chaparro Sánchez MD Crystal is a patient I am following for an anal fistula. I performed performed an examination under anesthesia with fistulotomy and seton placement on 11/08/18. The patient has been doing well post-operatively with no concerns noted at his initial post-op visit on 11/15/18. Denies issues with bowel movements. Has been resting and doing soaks as instructed. Patient states was at [employer] earlier this week, had been noting a little more soreness while sitting and then felt a mccray of liquid. Went to restroom and bloody drainage had soaked through pad and his pants. He called our office and was told to come in immediately for evaluation. Patient notes the drainage seemed to stop after the initial gush of blood. He notes actually that the discomfort he had been noting earlier seemed to be completely relieved after the episode of bloody drainage. He feels well overall. VITALS: Blood pressure 130/82, pulse 61, weight 96.5 kg (212 lb 12.8 oz). On examination, the seton is in place. The site is granulating is expected Assessment IMPRESSION: Status post damaged under anesthesia, anal fistulotomy with seton placement PLAN: If the patient notes any problems or signs of wound infections, he should contact me immediately. I discussed with the patient the fact that bleeding following seton placement is expected that as the site heals with granulation tissue there can be some bleeding and discharge. We discussed how the seton is placed to transition this from a deeper fistula through the sphincter to more superficial tract and therefore plan for follow-up/second stage fistulotomy in approximately 2 months. Diagnoses: (K60.3) Anal fistula (primary encounter diagnosis) Return to Clinic: The patient is instructed to follow-up with me in 3 weeks for wound check and to plan second stage fistulotomy. Lenny Diallo MD ? Referring Provider: CHAPARRO SÁNCHEZ [[id number]] Allergies As of Date: 12/09/2018 (No Known Allergies) Date Reviewed: 12/09/2018 Reviewed by: Cami Medellin RN - Fully Assessed Reason for Visit: Post Op [174] Primary Visit Diagnosis:Anal fistula [K60.3] Prescriptions as of 12/09/2018 Sig: SIMVASTATIN 40 MG TABLET Take 1 tablet by mouth daily * MULTIVITAMIN TABLET Take 1 tablet by mouth once d* Problem List As Of Date 12/09/2018 Noted Resolved HYPERLIPIDEMIA NEC/NOS [E78.5] SCREENING MAL NEOP-PROSTATE [Z12.5] INVALID FOR* Obesity [E66.9] INVALID FOR* Encounter Status:Closed by LENNY DIALLO MD on 12/09/18 [facility] PROGRESSon 12-09-2018 Protein mass conc HNO ID: [id number] Author: Lenny Diallo Service: (none) Author Type: Physician Type: Progress Notes Filed: 12/09/2018 5:55 PM Note Text: FOLLOW UP VISIT - POST OP NAME: Crystal Doug Hauser CLINIC NO.: [id number] DATE OF SERVICE: December 09, 2018 : 1950 REFERRING PHYSICIAN: Chaparro Sánchez MD Crystal is a patient I am following for an anal fistula. I performed performed an examination under anesthesia with fistulotomy and seton placement on 11/08/18. The patient has been doing well post-operatively with no concerns noted at his initial post-op visit on 11/15/18. Denies issues with bowel movements. Has been resting and doing soaks as instructed. Patient states was at [place] earlier this week, had been noting a little more soreness while sitting and then felt a mccray of liquid. Went to restroom and bloody drainage had soaked through pad and his pants. He called our office and was told to come in immediately for evaluation. Patient notes the drainage seemed to stop after the initial gush of blood. He notes actually that the discomfort he had been noting earlier seemed to be completely relieved after the episode of bloody drainage. He feels well overall. VITALS: Blood pressure 130/82, pulse 61, weight 96.5 kg (212 lb 12.8 oz). On examination, the seton is in place. The site is granulating is expected Assessment IMPRESSION: Status post damaged under anesthesia, anal fistulotomy with seton placement PLAN: If the patient notes any problems or signs of wound infections, he should contact me immediately. I discussed with the patient the fact that bleeding following seton placement is expected that as the site heals with granulation tissue there can be some bleeding and discharge. We discussed how the seton is placed to transition this from a deeper fistula through the sphincter to more superficial tract and therefore plan for follow-up/second stage fistulotomy in approximately 2 months. Diagnoses: (K60.3) Anal fistula (primary encounter diagnosis) Return to Clinic: The patient is instructed to follow-up with me in 3 weeks for wound check and to plan second stage fistulotomy. Lenny Diallo MD ? [facility] PROGRESSon 11-26-2018 Protein mass conc HNO ID: [id number] Author: Lenny Diallo Service: (none) Author Type: Physician Type: Progress Notes Filed: 11/26/2018 11:58 AM Note Text: FOLLOW UP VISIT - POST OP NAME: Crystal Hauser [facility] NO.: [id number] DATE OF SERVICE: 11/25/2018 : 1950 REFERRING PHYSICIAN: Chaparro Sánchez MD Crystal is a patient I am following for an anal fistula. I performed performed an examination under anesthesia with fistulotomy and seton placement on 11/08/18. The patient has been doing well post-operatively with no concerns noted at his initial post-op visit on 11/15/18. Denies issues with bowel movements. Has been resting and doing soaks as instructed. Patient states was at [place] earlier this week, had been noting a little more soreness while sitting and then felt a mccray of liquid. Went to restroom and bloody drainage had soaked through pad and his pants. He called our office and was told to come in immediately for evaluation. Patient notes the drainage seemed to stop after the initial gush of blood. He notes actually that the discomfort he had been noting earlier seemed to be completely relieved after the episode of bloody drainage. He feels well overall. VITALS: There were no vitals taken for this visit. On examination, the seton is in place. The site is granulating is expected Assessment IMPRESSION: Status post damaged under anesthesia, anal fistulotomy with seton placement PLAN: If the patient notes any problems or signs of wound infections, he should contact me immediately. I discussed with the patient the fact that bleeding following seton placement is expected that as the site heals with granulation tissue there can be some bleeding and discharge. We discussed how the seton is placed to transition this from a deeper fistula through the sphincter to more superficial tract and therefore plan for follow-up/second stage fistulotomy in approximately 2 months. Diagnoses: (K60.3) Anal fistula (primary encounter diagnosis) Return to Clinic: The patient is instructed to follow-up with me in 2 weeks for wound check. Lenny Diallo MD ? [facility] CNOVon 11-25-2018 CNOV Office Visit (GENSWS ) CRYSTAL HAUSER ([id number]) 1950 M Date Time Provider Department 11/25/18 9:30 AM LENNY DIALLO During your visit today, we recorded the following information about you: Lenny Diallo MD 11/26/2018 11:58 AM Signed FOLLOW UP VISIT - POST OP NAME: Crystal Hauser CLINIC NO.: [id number] DATE OF SERVICE: 11/25/2018 : 1950 REFERRING PHYSICIAN: Chaparro Sánchez MD Crystal is a patient I am following for an anal fistula. I performed performed an examination under anesthesia with fistulotomy and seton placement on 11/08/18. The patient has been doing well post-operatively with no concerns noted at his initial post-op visit on 11/15/18. Denies issues with bowel movements. Has been resting and doing soaks as instructed. Patient states was at [place] earlier this week, had been noting a little more soreness while sitting and then felt a mccray of liquid. Went to restroom and bloody drainage had soaked through pad and his pants. He called our office and was told to come in immediately for evaluation. Patient notes the drainage seemed to stop after the initial gush of blood. He notes actually that the discomfort he had been noting earlier seemed to be completely relieved after the episode of bloody drainage. He feels well overall. VITALS: There were no vitals taken for this visit. On examination, the seton is in place. The site is granulating is expected Assessment IMPRESSION: Status post damaged under anesthesia, anal fistulotomy with seton placement PLAN: If the patient notes any problems or signs of wound infections, he should contact me immediately. I discussed with the patient the fact that bleeding following seton placement is expected that as the site heals with granulation tissue there can be some bleeding and discharge. We discussed how the seton is placed to transition this from a deeper fistula through the sphincter to more superficial tract and therefore plan for follow-up/second stage fistulotomy in approximately 2 months. Diagnoses: (K60.3) Anal fistula (primary encounter diagnosis) Return to Clinic: The patient is instructed to follow-up with me in 2 weeks for wound check. Lenny Diallo MD ? Referring Provider: CHAPARRO SÁNCHEZ [[id number]] Allergies As of Date: 11/25/2018 (No Known Allergies) Date Reviewed: 11/25/2018 Reviewed by: Caitlyn Avila LPN - Fully Assessed Reason for Visit: Post Op [174] Primary Visit Diagnosis:Anal fistula [K60.3] Prescriptions as of 11/25/2018 Sig: SIMVASTATIN 40 MG TABLET Take 1 tablet by mouth daily * MULTIVITAMIN TABLET Take 1 tablet by mouth once d* Problem List As Of Date 11/25/2018 Noted Resolved HYPERLIPIDEMIA NEC/NOS [E78.5] SCREENING MAL NEOP-PROSTATE [Z12.5] INVALID FOR* Obesity [E66.9] INVALID FOR* Letter Text Encounter Status:Closed by LENNY DIALLO MD on 11/26/18 [facility] PROGRESSon 11-19-2018 Protein mass conc HNO ID: [id number] Author: Sachin Watts (Pa) Service: (none) Author Type: Physician Screen Room Operator Type: Progress Notes Filed: 11/19/2018 6:41 PM Note Text: Patient presents with: Post Op: post op Bleeding Crystal is a patient I am following for recurrent perianal abscess and suspected anal fistula. ? Dr. Diallo performed an examination under anesthesia with fistulotomy and seton placement on 11/08/18. The patient has been doing well post-operatively with no concerns noted at his initial post-op visit on 11/15/18. Denies issues with bowel movements. Has been resting and doing soaks as instructed. Patient states was at [place] today, had been noting a little more soreness while sitting and then felt a mccray of liquid. Went to restroom and bloody drainage had soaked through pad and his pants. He called our office and was told to come in immediately for evaluation. Patient notes the drainage seemed to stop after the initial gush of blood. He notes actually that the discomfort he had been noting earlier seemed to be completely relieved after the episode of bloody drainage. He feels well overall. There were no vitals taken for this visit. General: patient is alert, cooperative, pleasant and in no acute distress Bloody serosanguinous drainage present on buttocks, this was cleansed away with saline and the wound was noted to be c/d/i with no active bleeding or drainage, seton suture intact. Minimal expected tenderness. No erythema or other concerns. Assessment: s/p fistulotomy with seton placement. ?pooling of bloody drainage in wound/behind seton while sitting which then released with movement. No active bleeding or concerns on exam Plan: Reassured patient Continue using absorbent pads for drainage Keep appointment with Dr. Diallo next week for recheck Call immediately if any other concerns Patient verbalized understanding of all above and agreed with the plan Sachin Watts PA-C ? [facility] CNOVon 11-18-2018 CNOV Office Visit (GENSWS ) CRYSTAL HAUSER ([id number]) 1950 M Date Time Provider Department 11/18/18 3:00 PM SACHIN WATTS) TORY During your visit today, we recorded the following information about you: Sachin Watts PA-C 11/19/2018 6:41 PM Signed Patient presents with: Post Op: post op Bleeding Crystal is a patient I am following for recurrent perianal abscess and suspected anal fistula. ? Dr. Diallo performed an examination under anesthesia with fistulotomy and seton placement on 11/08/18. The patient has been doing well post-operatively with no concerns noted at his initial post-op visit on 11/15/18. Denies issues with bowel movements. Has been resting and doing soaks as instructed. Patient states was at [place] today, had been noting a little more soreness while sitting and then felt a mccray of liquid. Went to restroom and bloody drainage had soaked through pad and his pants. He called our office and was told to come in immediately for evaluation. Patient notes the drainage seemed to stop after the initial gush of blood. He notes actually that the discomfort he had been noting earlier seemed to be completely relieved after the episode of bloody drainage. He feels well overall. There were no vitals taken for this visit. General: patient is alert, cooperative, pleasant and in no acute distress Bloody serosanguinous drainage present on buttocks, this was cleansed away with saline and the wound was noted to be c/d/i with no active bleeding or drainage, seton suture intact. Minimal expected tenderness. No erythema or other concerns. Assessment: s/p fistulotomy with seton placement. ?pooling of bloody drainage in wound/behind seton while sitting which then released with movement. No active bleeding or concerns on exam Plan: Reassured patient Continue using absorbent pads for drainage Keep appointment with Dr. Diallo next week for recheck Call immediately if any other concerns Patient verbalized understanding of all above and agreed with the plan Sachin Watts PA-C ? Referring Provider: SELF [[id number]] Allergies As of Date: 11/18/2018 (No Known Allergies) Date Reviewed: 11/15/2018 Reviewed by: Sachin Watts (Pa) - Fully Assessed Reason for Visit: Post Op [174] Cmt: post op Bleeding Primary Visit Diagnosis:Aftercare following surgery [Z48.89] Prescriptions as of 11/18/2018 Sig: SIMVASTATIN 40 MG TABLET Take 1 tablet by mouth daily * MULTIVITAMIN TABLET Take 1 tablet by mouth once d* Problem List As Of Date 11/18/2018 Noted Resolved HYPERLIPIDEMIA NEC/NOS [E78.5] SCREENING MAL NEOP-PROSTATE [Z12.5] INVALID FOR* Obesity [E66.9] INVALID FOR* Follow-up and Disposition History Recorded Encounter Status:Closed by SACHIN WATTS PA-C on 11/19/[address] [facility] CNOVon 11-15-2018 CNOV Office Visit (GENSWS ) CRYSTAL HAUSER ([id number]) 1950 M Date Time Provider Department 11/15/18 2:00 PM SACHIN WATTS (PA) GENHILARIO During your visit today, we recorded the following information about you: Pulse Blood pressure Weight 90/minute 128/94 94.5 kg Sachin Watts PA-C 11/15/2018 2:27 PM Signed -Continue washing area with soap and water, sitz baths -Follow up for wound check in 2 weeks Sachin Watts PA-C 11/15/2018 6:06 PM Signed FOLLOW UP VISIT - POST OP NAME: Crystal Hauser CLINIC NO.: [id number] DATE OF SERVICE: 11/15/2018 : 1950 REFERRING [...] Clinic: The patient is instructed to follow-up in 2 weeks for recheck with Dr. Diallo Sachin Watts PA-C Referring Provider: CHAPARRO SÁNCHEZ [[id number]] Allergies As of Date: 11/15/2018 (No Known [...] Encounter Status:Closed by SACHIN WATTS PA-C on 11/15/18 [facility] PROGRESSon 11-15-2018 Protein mass conc HNO ID: [id number] Author: Sachin Watts (Pa) Service: (none) Author Type: Physician Screen Room Operator Type: Progress Notes Filed: 11/15/2018 6:06 PM Note Text: FOLLOW UP VISIT - POST OP NAME: Crystal Hauser [facility] NO.: [id number] DATE OF SERVICE: 11/15/2018 : 1950 REFERRING [...] Clinic: The patient is instructed to follow-up in 2 weeks for recheck with Dr. Diallo Sachin Watts PA-C [facility] PROGRESSon 11-10-2018 Protein mass conc HNO ID: [id number] Author: Lenny Diallo Service: (none) Author Type: Physician Type: Progress Notes Filed: 11/10/2018 6:43 PM Note Text: OPERATIVE NOTATION FOR [facility] SURGICAL PROCEDURE. November 08, 2018 Crystal Hauser 1950 [id number] male PROCEDURE: Examination Under Anesthesia, Anal Fistula with Seton - [id number] SURGEON: Coleen Diallo M.D. FACS DATA CLERK: None DEPT: PROVIDER: [id number] Diallo MD POS: [id number] DIAGNOSIS: (K60.3) Anal fistula (primary encounter diagnosis) ASA CLASS: 2 - mild FINDINGS: COMPLICATIONS: None PMHx - PAST MEDICAL HISTORY Diagnosis Date - Kidney stones - Other and unspecified hyperlipidemia COMORBIDITIES - None Post Op Occurrences - None Wound Classification - Contaminated Operative note dictated in the [facility] dictation system. Lenny Diallo MD [facility] PROGRESSon 11-04-2018 Protein mass conc HNO ID: [id number] Author: Sachin Watts (Pa) Service: (none) Author Type: Physician Screen Room Operator Type: Progress Notes Filed: 11/04/2018 1:29 PM [...] uncertain primary - Ischemic Heart Disease Father [place] age 75 - Lipids Sister REVIEW OF [...] disturbance, mood disorder and recent psychosocial stressors HEMATOLOGY/LYMPHOLOGY : Negative for prolonged bleeding, bruising easily or [...] me 1 week post-operatively Sachin Watts PA-C [facility] CNOVon 11-03-2018 CNOV Office Visit (GENSWS ) CRYSTAL HAUSER ([id number]) 1950 M Date Time Provider Department 11/03/18 1:00 PM SACHIN WATTS (PA) During your visit today, we recorded the following information about you: Temperature Pulse Respiration Blood pressure 98.1 degrees 78/minute 18/minute 138/74 Weight Height 94.6 kg 1.727 m Sachin Watts PA-C 11/04/2018 1:29 PM Signed HISTORY AND PHYSICAL Crystal Hauser [...] uncertain primary - Ischemic Heart Disease Father [place] age 75 - Lipids Sister REVIEW OF [...] disturbance, mood disorder and recent psychosocial stressors HEMATOLOGY/LYMPHOLOGY : Negative for prolonged bleeding, bruising easily or [...] to follow-up with me 1 week post-operatively GILDARDO YanC Referring Provider: SELF [200] Allergies As of [...] SIGNATURE TIME TIME DATE November 04, 2018 [facility] DATE November 04, 2018 Orders verified by readback: PRE-ADMISSION TESTING PHYSICIAN'S ORDER SHEET PREOPERATIVE ORDERS: X ANTIBIOTIC: _clindamycin 900mg IVPB installation and repair technician to OR__ aware of penicillin allergy ok to administer X SCD'S __ PREP LOCATION: ___prone jackknife_ __ PAINT WITH BETADINE/CHLORAHEXIDI NE PREP PRE-ADMISSION TESTING PHYSICIAN'S ORDER SHEET 24113 [id number] REV 01.06.08 ANESTHESIA: __ Surgeon has notified anesthesia. Date/Time Doctor OR __ Anesthesia not yet notified of consult by surgeon. Check area of concern. System of concern: __Cardiac __Pulmonary __Neuro __ Airway __Allergies __Other __ Anesthesia to see patient at PAT appointment. (PAT appt must be between 1-3 pm) LAB ORDERS: X Labs done at [facility] (Copies enclosed for [facility]) __ Duplicate order __ No Labs [...] for MRSA (PCR) if guidelines met Other: ____ BLOOD BANK: __ Type AND Screen __ Type AND Cross (RC) units __ Autologous units __ Fresh Frozen Plasma units __ Platelets units ANCILLARY DEPTS: __EKG-MD to read: __PA/Lat CXR Reason for exam: __ Incentive Spirometer __ PERINATAL INSTRUCTOR Other: Patient has: Pacemaker ICD Drug Safety Coordinator name AND phone number: Pacer/ICD rep notified [...] screening (Fax to Rx) Admission Status: X [facility]C Overnight (23 hr or less) Admit Date: PAT Surgery Allergies:. Patient has no known allergies. Patient's Name: Pam Hauserleandra Patient's Birthdate: 1950 Diagnosis: (K61.0) Perianal abscess (primary encounter diagnosis) [facility] Surgery / Procedure: Surgeon / Physician: [...] science. No doctor, nurse or anyone from [facility] promised or guaranteed the success or [...] to me. I understand what it says. ___ __ Patient or Responsible Person Relationship to Patient Witness to Signature Only Reason Patient Does Not Sign -- ___ Date and Time signed _ Physician's signature [id number] Rev 05/01 Informed Consent Page 1 of 2 [facility] Informed Consent Surgery / Procedure: Examination Under Anesthesia, Anal Fistula - [id number] Surgeon / Physician: Lenny Diallo MD My [...] science. No doctor, nurse or anyone from [facility] promised or guaranteed the success or [...] of my confidential medical record. To allow [facility] employees, such as an Registered Nurse Coating Line Worker (GLASS BLOWING LATHE OPERATOR) to assist with my surgery To allow Healthcare Industry Representatives to be present during my surgery or procedure To allow students to participate in the care, under appropriate situations. Page 1 of 2 [facility] Informed Consent Check One: To give [...] have explained. Physician?s Signature Date and Time [place] [facility] [address] [place], [place] [address] Chaparro Sánchez MD [address] [address] 11/04/2018 Dear Chaparro Sánchez MD : Thank you for allowing me to evaluate your patient, Crystalleandra Hauser. I saw Crystal on 11/03/2018. I [...] uncertain primary - Ischemic Heart Disease Father [place] age 75 - Lipids Sister REVIEW OF [...] disturbance, mood disorder and recent psychosocial stressors HEMATOLOGY/LYMPHOLOGY : Negative for prolonged bleeding, bruising easily or [...] uncertain primary - Ischemic Heart Disease Father [place] age 75 - Lipids Sister REVIEW OF [...] disturbance, mood disorder and recent psychosocial stressors HEMATOLOGY/LYMPHOLOGY : Negative for prolonged bleeding, bruising easily or [...] Status:Closed by SACHIN WATTS PA-C on 11/04/18 [facility] PROGRESSon 10-22-2018 Protein mass conc HNO ID: [id number] Author: Sachin Watts (Pa) Service: (none) Author Type: Physician Screen Room Operator Type: Progress Notes Filed: 10/21/2018 10:28 PM Note Text: FOLLOW UP VISIT - ABSCESS NAME: Crystal Hauser [facility] NO.: [id number] DATE OF SERVICE: 10/21/2018 : 1950 REFERRING [...] abscess (primary encounter diagnosis) Sachin Watts PA-C [facility] CNOVon 10-21-2018 CNOV Office Visit (GENSWS ) CRYSTAL HAUSER ([id number]) 1950 M Date Time Provider Department 10/21/18 2:30 PM SACHIN WATTS (PA) During your visit [...] - ABSCESS NAME: Crystal Hauser CLINIC NO.: [id number] DATE OF SERVICE: 10/21/2018 : 1950 REFERRING [...] Status:Closed by SACHIN WATTS PA-C on 10/21/[address] [facility] CNOVon 10-08-2018 CNOV Office Visit (GENSWS ) CRYSTAL HAUSER ([id number]) 1950 M Date Time Provider Department 10/08/18 3:00 PM SACHIN WATTS (PA) GENHILARIO During your visit today, we recorded the following information about you: Sachin Watts PA-C 10/08/2018 3:26 PM Signed -Follow up as needed Sachin Watts PA-C 10/08/2018 9:02 PM Signed FOLLOW UP VISIT - ABSCESS NAME: Crystal Hauser CLINIC NO.: [id number] DATE OF SERVICE: 10/08/2018 : 1950 REFERRING [...] patient is instructed to follow-up with me as needed. Sachin Watts PA-C Referring Provider: CHAPARRO SÁNCHEZ [[id number]] Allergies As of Date: 10/08/2018 (No Known [...] Status:Closed by SACHIN WATTS PA-C on 10/08/18 [facility] PROGRESSon 10-08-2018 Protein mass conc HNO ID: [id number] Author: Sachin Watts (Pa) Service: (none) Author Type: Physician Screen Room Operator Type: Progress Notes Filed: 10/08/2018 9:02 PM Note Text: FOLLOW UP VISIT - ABSCESS NAME: Crystal Doug Hauser [facility] NO.: [id number] DATE OF SERVICE: 10/08/2018 : 1950 REFERRING [...] patient is instructed to follow-up with me as needed. Sachin Watts PA-C [facility] CNOVon 10-01-2018 CNOV Office Visit (GENSWS ) CRYSTAL HAUSER ([id number]) 1950 M Date Time Provider Department 10/01/18 2:00 PM SACHIN WATTS (PA) GENHILARIO During your visit today, we recorded the following information about you: Sachin Watts PA-C 10/01/2018 3:19 PM Signed The following instructions are important for you related to your office visit today with the [facility] General Surgeons. Instructions After PERIRECTAL ABSCESS [...] you should contact our office immediately @ [phone] and ask to be transferred to the General Surgery department. Sachin Watts PA-C 10/05/2018 5:29 PM Signed HISTORY AND PHYSICAL Crystalleandra Hauser 1950 REFERRING PHYSICIAN: Chaparro Sánchez MD [...] uncertain primary - Ischemic Heart Disease Father [place] age 75 - Lipids Sister REVIEW OF [...] signed prior to procedure and scanned into [facility]. After consent was obtained and [...] Sachin Watts PA-C Referring Provider: CHAPARRO SÁNCHEZ [[id number]] Allergies As of Date: 10/01/2018 (No Known [...] to your office visit today with the [facility] General Surgeons. Instructions After PERIRECTAL ABSCESS [...] you should contact our office immediately @ [phone] and ask to be transferred to the General Surgery department. Encounter Status:Closed by SACHIN WATTS PA-C on 10/05/18 [facility] PROGRESSon 10-01-2018 Protein mass conc HNO ID: [id number] Author: Sachin Watts (Pa) Service: (none) Author Type: Physician Screen Room Operator Type: Progress Notes Filed: 10/05/2018 5:29 PM [...] HISTORY Procedure Laterality Date - COLONOSCOPY 2018 CURRENT MEDICATIONS: Current Outpatient Prescriptions: simvastatin (ZOCOR) [...] uncertain primary - Ischemic Heart Disease Father [place] age 75 - Lipids Sister REVIEW OF [...] signed prior to procedure and scanned into [facility]. After consent was obtained and [...] me in one week. Sachin Watts PA-C [facility] Vital Signs Date Time Vital Sign Value Performing Clinician Grace pugh 08-27-2023 09:12-0400 Body height 172.[address] Dinah Camacho Work Phone: [facility] 08-27-2023 09:12-0400 Body mass index (BMI) [Ratio] 32.3 kg/m2 Dr. Dinah Camacho Work Phone: [facility] 08-27-2023 09:12-0400 Body weight 96.[address] Dinah Camacho Work Phone: [facility] 08-19-2023 14:50-0400 Diastolic blood pressure 67 mm[Hg] Dr. Dinah Camacho Work Phone: [facility] 08-19-2023 14:50-0400 Heart rate 82 /min Dr. Dinah Camacho Work Phone: [facility] 08-19-2023 14:50-0400 Respiratory rate 15 /min Dr. Dinah Camacho Work Phone: [facility] 08-19-2023 14:50-0400 SaO2% (BldA) [Mass fraction] 97 % Dr. Dinah Camacho Work Phone: [facility] 08-19-2023 14:50-0400 Systolic blood pressure 141 mm[Hg] Dr. Dinah Camacho Work Phone: [facility] 08-19-2023 11:16-0400 Body height 172.[address] Dinah aCmacho Work Phone: [facility] 08-19-2023 11:16-0400 Body temperature 98 [degF] Dr. Dinah Camacho Work Phone: [facility] 08-17-2023 15:32-0400 Body mass index (BMI) [Ratio] 32 kg/m2 Dr. Dinah Camacho Work Phone: [facility] 08-17-2023 15:32-0400 Body temperature 98.7 [degF] Dr. Dinah Camacho Work Phone: [facility] 08-17-2023 15:32-0400 Body weight 101.[address] Dinah Camacho Work Phone: [facility] 08-17-2023 15:32-0400 Diastolic blood pressure 100 mm[Hg] Dr. Dinah Camacho Work Phone: [facility] 08-17-2023 15:32-0400 Heart rate 83 /min Dr. Dinah Camacho Work Phone: [facility] 08-17-2023 15:32-0400 Respiratory rate 16 /min Dr. Dinah Camacho Work Phone: [facility] 08-17-2023 15:32-0400 SaO2% (BldA) [Mass fraction] 93 % Dr. Dinah Camacho Work Phone: [facility] 08-17-2023 15:32-0400 Systolic blood pressure 157 mm[Hg] Dr. Dinah Camacho Work Phone: [facility] 08-13-2023 13:24-0400 Body mass index (BMI) [Ratio] 32 kg/m2 Dr. Dinah Camacho Work Phone: [facility] 08-13-2023 13:24-0400 Body temperature 98.6 [degF] Dr. Dinah Camacho Work Phone: [facility] 08-13-2023 13:24-0400 Body weight 101.[address] Dinah Camacho Work Phone: [facility] 08-13-2023 13:24-0400 Diastolic blood pressure 82 mm[Hg] Dr. Dinah Camacho Work Phone: [facility] 08-13-2023 13:24-0400 Heart rate 56 /min Dr. Dinah Camacho Work Phone: [facility] 08-13-2023 13:24-0400 Respiratory rate 16 /min Dr. Dinah Camacho Work Phone: [facility] 08-13-2023 13:24-0400 SaO2% (BldA) [Mass fraction] 93 % Dr. iDnah Camacho Work Phone: [facility] 08-13-2023 13:24-0400 Systolic blood pressure 140 mm[Hg] Dr. Dinah Camacho Work Phone: [facility] 07-31-2023 14:15-0400 Body mass index (BMI) [Ratio] 30.8 kg/m2 Dr. Dinah Camacho Work Phone: [facility] 07-31-2023 14:15-0400 Body weight 97.[address] Dinah Camacho Work Phone: [facility] 07-31-2023 14:15-0400 Diastolic blood pressure 86 mm[Hg] Dr. Dinah Camacho Work Phone: [facility] 07-31-2023 14:15-0400 Heart rate 69 /min Dr. Dinah Camacho Work Phone: [facility] 07-31-2023 14:15-0400 Respiratory rate 16 /min Dr. Dinah Camacho Work Phone: [facility] 07-31-2023 14:15-0400 SaO2% (BldA) [Mass fraction] 95 % Dr. Dinah Camacho Work Phone: [facility] 07-31-2023 14:15-0400 Systolic blood pressure 136 mm[Hg] Dr. Dinah Camacho Work Phone: [facility] 03-26-2023 15:00-0400 Body height 177.[address] Dinah Camacho Work Phone: [facility] 03-26-2023 15:00-0400 Body mass index (BMI) [Ratio] 30.6 kg/m2 Dr. Dinah Camacho Work Phone: [facility] 03-26-2023 15:00-0400 Body temperature 98.3 [degF] Dr. Dinah Camacho Work Phone: [facility] 03-26-2023 15:00-0400 Body weight 96.[address] Dinah Camacho Work Phone: [facility] 03-26-2023 15:00-0400 Diastolic blood pressure 79 mm[Hg] Dr. Dinah Camacho Work Phone: [facility] 03-26-2023 15:00-0400 Heart rate 79 /min Dr. Dinah Camacho Work Phone: [facility] 03-26-2023 15:00-0400 Respiratory rate 16 /min Dr. Dinah Camacho Work Phone: [facility] 03-26-2023 15:00-0400 SaO2% (BldA) [Mass fraction] 95 % Dr. Dinah Camacho Work Phone: [facility] 03-26-2023 15:00-0400 Systolic blood pressure 118 mm[Hg] Dr. Dinah Camacho Work Phone: [facility] 02-06-2022 13:06-0400 Body height 177.[address] Dinah Camacho Work Phone: [facility] Work Phone: 02-06-2022 13:06-0400 Body mass index (BMI) [Ratio] 31.1 kg/m2 Dr. Dinah Camacho Work Phone: [facility] Work Phone: 02-06-2022 13:06-0400 Body temperature 97.4 [degF] Dr. Dinah Camacho Work Phone: [facility] Work Phone: 02-06-2022 13:06-0400 Body weight 98.[address] Dinah Camacho Work Phone: [facility] Work Phone: 02-06-2022 13:06-0400 Diastolic blood pressure 82 mm[Hg] Dr. Dinah Camacho Work Phone: [facility] Work Phone: 02-06-2022 13:06-0400 Heart rate 82 /min Dr. Dinah Camacho Work Phone: [facility] Work Phone: 02-06-2022 13:06-0400 Respiratory rate 14 /min Dr. Dinah Camacho Work Phone: [facility] Work Phone: 02-06-2022 13:06-0400 SaO2% (BldA) [Mass fraction] 99 % Dr. Dinah Camacho Work Phone: [facility] Work Phone: 02-06-2022 13:06-0400 Systolic blood pressure 132 mm[Hg] Dr. Dinah Camacho Work Phone: [facility] Work Phone: Encounters Encounter Date Encounter Type Care Provider Facility Start: 12-13-2024 End: 12-13-2024 ambulatory Amita Jacobo Facility:[facility] Start: 10-21-2024 End: 10-21-2024 ambulatory Dinah Camacho Facility:[facility] Start: 09-21-2024 End: 09-21-2024 ambulatory Denise Anna Facility:[facility] Start: 09-08-2024 End: 09-08-2024 ambulatory Den[facility] [place] Facility:[facility] Start: 07-21-2024 End: 07-21-2024 ambulatory Dinah Camacho Facility:[facility] Start: 04-23-2024 End: 04-23-2024 ambulatory [facility] Facility:[facility] Start: 04-21-2024 End: 04-21-2024 ambulatory Dinah Camacho Facility:[facility] Start: 01-20-2024 End: 01-20-2024 ambulatory Dinah Camacho Facility:[facility] Start: 08-27-2023 End: 08-27-[address] Dinah Camacho Work Phone: [facility] Work Phone: Start: 08-24-2023 End: 08-24-[address] Dinah Camacho Work Phone: [facility] Work Phone: Start: 08-24-2023 End: 08-24-[address] Dinah Camacho Work Phone: [facility] Work Phone: Start: 08-19-2023 End: 08-19-2023 Emergency department patient visit Dr. Dinah Camacho Work Phone: [facility] Work Phone: Start: 08-17-2023 End: 08-17-[address] Dinah Camacho Work Phone: [facility] Work Phone: Start: 08-17-2023 End: 08-17-[address] Dinah Camacho Work Phone: [facility] Work Phone: Start: 08-17-2023 End: 08-17-[address] [facility] Work Phone: Start: 08-13-2023 End: 08-13-[address] Dinah Camacho Work Phone: [facility] Work Phone: Start: 07-31-2023 End: 07-31-[address] Dinah Camacho Work Phone: [facility] Work Phone: Start: 04-06-2023 End: 04-06-[address] Dinah Camacho Work Phone: [facility] Work Phone: Start: 04-06-2023 End: 04-06-[address] Dinah Camacho Work Phone: [facility] [place] Start: 03-26-2023 End: 03-26-[address] Dinah Camacho Work Phone: [facility] [place] Start: 03-21-2022 End: 03-21-[address] Dinah Camacho Work Phone: [facility] Start: 02-06-2022 End: 02-06-[address] Dinah Camacho Work Phone: [facility] [place] Start: 02-06-2022 End: 02-06-[address] Dinah Camacho Work Phone: [facility] Start: 01-27-2019 End: 01-28-2019 Patient encounter procedure LENNY DIALLO [facility] Start: 01-19-2019 End: 01-19-2019 Patient encounter procedure LENNY T [facility] Start: 01-04-2019 End: 01-10-2019 Patient encounter procedure SACHIN ([place]) [facility] Start: 12-09-2018 End: 12-13-2018 [facility]: 11-25-2018 End: 11-26-2018 [facility] Start: 11-18-2018 End: 11-22-2018 Patient encounter procedure SACHIN ([place]) [facility] Start: 11-15-2018 End: 11-16-2018 Patient encounter procedure [facility]ACHIN ([facility]) [facility] Start: 11-03-2018 End: 11-05-2018 Patient encounter procedure SACHIN (PA) [facility] Start: 10-21-2018 End: 10-25-2018 Patient encounter procedure SACHIN (PA) [facility] Start: 10-08-2018 End: 10-11-2018 Patient encounter procedure SACHIN ([place]) [facility] Start: 10-01-2018 End: 10-06-2018 Patient encounter procedure SACHIN (PA) [facility] Procedures Date Procedure Procedure Detail Performing Clinician Start: 08-27-2023 Radiologic examinati on of knee Dr. Dinah Camacho Work Phone: Start: 08-24-2023 MRI of lumbar spine Dr. Dinah Camacho Work Phone: Start: 08-17-2023 X-ray of lumbar spin e, two or three views Dr. Dinah Camacho Work Phone: H/O: surgery S/P anal fissurectomy Dr. Catarina Camacho Work Phone: Plan of Treatment Date Care Activity Detail Author Start: 08-19-2023 [facility] Start: 08-13-2023 Patient referral [facility] Work Phone: Start: 03-26-2023 Patient referral [facility] Work Phone: Patient Education ED Pain, Acute , Uncertain Cause [facility] Work Phone: Patient referral [facility] Work Phone: Payers Date Payer Category Payer Self-pay [id number] 2024 Medicare [id number] 2024 Private Health Insurance [facility] [id number] Unknown [id number] Unknown [id number] 2.16.8 [id number] Unknown [id number] 2.16.8 [id number] Unknown [id number] 2.16.8 [id number] Unknown [id number] 2.16.8 [id number] Unknown [id number] 2.16.8 [id number] Unknown [id number] 2.16.8 [id number] Unknown [id number] 2.16.8 [id number] Unknown [id number] 2.16.8 [id number] Social History Date Type Detail Facility Start: 02-06-2022 End: 08-27-2023 Tobacco smoking status NHIS Unknown if ever smoked [facility] Start: 11-05-2018 Non-smoker [facility] Start: 1950 Sex Assigned At Male [facility] Evaluation note Note Date & Type Note Facility Evaluation note Diagnosis Onset Date Rectus diastasis acute Umbilical hernia acute Hyperlipemia chronic Hypothyroidism chronic [facility] Work Phone: Evaluation note Note Date & Type Note Facility Evaluation note Diagnosis Onset Date Actinic keratoses acute Umbilical hernia acute Hyperlipemia chronic Hypothyroidism chronic [facility] Work Phone: Evaluation note Note Date & Type Note Facility Evaluation note Diagnosis Onset Date Strain of lumbar region acut e Low back pain acute Strain of lumbar region acut e Low back pain acute Strain of lumbar region acut e [facility] Work Phone: Evaluation note Note Date & Type Note Facility Evaluation note Diagnosis Onset Date Strain of lumbar region acut e Low back pain acute Strain of lumbar region acut e Low back pain acute Strain of lumbar region acut e Sacroiliac joint dysfunction of left side acute [facility] Work Phone: Summary Purpose Family History No Family History Records Found Relationship Condition Age at Onset Recorded Date/T jesus father Cardiac disease Unknown Cerebrovascular accident (CVA) Unknown sister Cardiac disease Unknown mother Malignant neoplasm Unknown Advance Directives No Advanced Directives Records Found Advance Directive Response Recorded Date/ Time Living Will No November 05 9:15am Power of Software Verification Engineer No November 05, 2018 9:15am Advance Directive Response Recorded Date/ Time Living Will No May 26, 2022 8:08am Power of Software Verification Engineer No May 26 8:08am Advance Directive Response Recorded Date/ Time Living Will No August 19 11:49am Power of Software Verification Engineer No August 19, 2023 11:49am Advance Directive Response Recorded Date/ Time Living Will No August 24 10:03am Power of Software Verification Engineer No August 24, 2023 10:03am Procedure Findings Note Operative Note (Enc) (GENSWS ) Progress Notes: Lenny Diallo MD 11/10/2018 6:43 PM Signed OPERATIVE NOTATION FOR [facility] SURGICAL PROCEDURE. November 08, 2018 Crystal Hauser 1950 [id number] male PROCEDURE: Examination Under Anesthesia, Anal Fistula with Seton - [id number] SURGEON: Coleen Diallo M.D. FACS DATA CLERK: None DEPT: WQ PROVIDER: [id number] Diallo MD POS: [id number] DIAGNOSIS: (K60.3) Anal fistula (primary encounter diagnosis) ASA CLASS: 2 - mild FINDINGS: COMPLICATIONS: None PMHx - PAST MEDICAL HISTORY Diagnosis Date - Kidney stones - Other and unspecified hyperlipidemia COMORBIDITIES - None Post Op Occurrences - None Wound Classification - Contaminated Operative note dictated in the [facility] dictation system. Lenny Diallo MD Encounter Status:Closed by LENNY DIALLO MD on 11/10/18 Chief Complaint and Reason for Visit Chief Complaint 1 Y FU Reason for Visit Rectus diastasis Umbilical hernia Hyperlipemia Hypothyroidism Chief Complaint Annual Reason for Visit Actinic keratoses Umbilical hernia Hyperlipemia Hypothyroidism Chief Complaint LT HIP PAIN LT Hip Pain Hip Pain HIP PAIN Reason for Visit Strain of lumbar reg ion Low back pain Strain of lumbar region Low back pain Strain of lumbar region Chief Complaint LT HIP PAIN LT Hip Pain Hip Pain HIP PAIN LUMBAR RAD LUMBAR SPINE Room 5 Reason for Visit Strain of lumbar reg ion Low back pain Strain of lumbar region Low back pain Strain of lumbar region Sacroiliac joint dysfunction of left side Additional Source Comments (unrecognized sect ion and content) No Status Records FoundNo Status Records FoundNo Status Records Found INFORMATION SOURCE (unrecogn ized section and content) DATE CREATED AUTHOR 01/23/2019 [facility] DATE CREATED AUTHOR AUTHOR'S ORGANIZ ATION 01/30/2019 [facility] DATE CREATED AUTHOR AUTHOR'S ORGANIZ ATION 12/14/2024 [facility] Goals (unrecognized section and content) Goals may be documented in a n alternate sectionGoals may be documented in an alternate sectionGoals may be documented in an alternate sectionGoals may be documented in an alternate sectionGoals may be documented in an alternate section Care Teams (unrecognized sec tion and content) Team Status: Active Member Role Status Dates Dr. Chaparro Sánchez MD Family Provider Active Dr. Dinah Camacho MD Primary Care Provider Active Team Status: Inactive Member Role Status Dates Dr. Dinah Camacho MD [facility], [facility] Active Team Status: Inactive Member Role Status Dates Dr. Dinah Camacho MD Primary [facility] Provider, [facility] Active Yuriy YOUNG, [place] Attending Provider Active Team Status: Inactive Member Role Status Dates Dr. Dinah Camacho MD Primary Care Pro vider, Attending Provider, Referring Provider Active Team Status: Inactive Member Role Status Dates Dr. Dinah Camacho MD Primary Care Provider Active Dr. Gabriel Arreola DO Emergency Provider Active Team Status: Inactive Member Role Status Dates Dr. Dinah Camacho MD Primary Care Provider, Referri ng Provider Active Dr. Toñito Lee DO Attending Provider Active Team Status: Inactive Member Role Status Dates Dr. Dinah Camacho MD Primary Care Provider Active Dr. Manuel Rai MD Attending Provider Active Team Status: Inactive Member Role Status Dates Dr. Dinah Camacho MD Primary Care Provider Active Dr. Gabriel Arreola DO Attending Provider, Emergency P rovider Active FOR RECORDS PERTAINING TO PATIENTS WHO ARE OR HAVE BEEN ENROLLED IN A CHEMICAL DEPENDENCY/SUBSTANCEABUSE PROGRAM, SOME INFORMATION MAY BE OMITTED. This clinical summary was aggregated from multiple sources. Caution should be exercised in using it in the provision of clinical care. This summary normalizes information from multiple sources, and as a consequence, information in this document may materially change the coding, format and clinical context of patient data. In addition, data may be omitted in some cases. CLINICAL DECISIONS SHOULD BE BASED ON THE PRIMARY CLINICAL RECORDS. [employer] provides no warranty or guarantee of the accuracy or completeness of information in this document.
[2025-04-08 21:48] VITALS: O2SAT 97
--- NOTE | 2025-04-08 21:48 | EKG12_ITS ---
Test Reason : CP Blood Pressure : */* mmHG Vent. Rate : 50 BPM Atrial Rate : 50 BPM P-R Int : 180 ms QRS Dur : 106 ms QT Int : 412 ms P-R-T Axes : 50 44 39 degrees QTcB Int : 375 ms Sinus bradycardia Otherwise normal ECG Confirmed by MILLA WAY, TANISHA ([id number]), editor index SACHIN SANTOYO ([id number]) on 04/11/2025 7:40:05 AM Referred By: Confirmed By: TANISHA LOYOLA MD
--- NOTE | 2025-04-08 21:55 | RAD_ITS ---
PROCEDURE: CHEST 1 VIEW (PORTABLE) 04/08/2025 REASON FOR EXAM: CHEST PAIN TECHNIQUE: Frontal view of the chest. COMPARISON: None. FINDINGS: Hardware: None. Heart: The heart size is normal. Lungs: No focal consolidation, pleural effusion or pneumothorax. Bones: Degenerative changes are identified within the thoracic spine. RAD/Chest 1 View (Portable) IMPRESSION: Negative Chest. Reading Location: [id number]
[2025-04-08 21:57] LABS: Absolute Lymphocyte Count 3.72 X10^3/uL (0.83-4.51); Absolute Neutrophil Count 3.3 X10^3/uL (2.0-7.7); Basophil# 0.07 X10^3/uL; Basophil% 0.9 % (0-1); Eosinophil# 0.21 X10^3/uL; Eosinophils% 2.6 % (0-5); Hematocrit 43.2 % (40-54); Hemoglobin 14.6 g/dL (13.0-16.5); Lymphocyte # 3.72 X10^3/ul (0.83-4.51); Lymphocyte % 45.2 % (19-41); Mean Corp Hgb Conc 33.8 g/dL (32-36); Mean Corpuscular Hgb 31.6 pg (27.0-32.0); Mean Corpuscular Volume 93.5 fL (80-94); Mean Platelet Vol. 10.9 fl (6.2-12.0); Monocyte# 0.91 X10^3/uL; Monocyte% 11.1 % (0-10); NRBC Flagged by Analyzer 0 % (0-5); Platelet Count 200 K/mm3 (150-450); RBC Distribution Width CV 13.2 % (11.6-14.6); RBC Distribution Width SD 45.1 fl (35.1-43.9); Red Blood Count 4.62 M/mm3 (4.6-6.2); White Blood Count 8.2 K/mm3 (4.4-11.0)
[2025-04-08 22:19] LABS: Troponin T High Sensitivity < 6 ng/L (<=22)
--- NOTE | 2025-04-08 22:26 | ED.VIS.CHEST ---
HPI History of Present Illness Chief Complaint: Chest Pain Informant: patient and family Narrative Narrative: 74-year-old male states has been having episodes of nonpleuritic substernal chest tightness for the last 4 or 5 days. The episodes occur at random. When he lies down at night he has no problems. He denies any associated symptoms or radiation of discomfort. No dyspnea, palpitations, near-syncope, sweating, coughing. No leg swelling or pain. No history of DVT or PE. He states he has had some of these mild tightness before but it has been more prominent in the last 4 to 5 days. He is not triggering it with exertion. He takes medicine for cholesterol, he does not take medicine for high blood pressure but has been checking his blood pressure since has been having his tightness, and noticing that he has had some numbers up as high as 175 systolic. The episodes last for an hour or 2 sometimes, he is estimating. States separate from this, for the past 1 or 2 weeks he has been having intermittent significant pains when he does certain movements in his right lateral chest wall closer to his axilla. He states he was bowling the other day and had some of this while he was doing that, nothing that limits him but it is significant when it occurs. This discomfort seems to be triggered on certain movements but he is not sure exactly which ones. He has never had a stress test. He has no history of heart disease that he knows of. Non-smoker. CVD Risk Factors: Positive for Hypercholesterolemia; Negative for Hypertension, Diabetes, Family History 1' </=55 or Smoking PE Risk Factors: Negative for Recent Travel/Surgery, Recent Immobilization, Prior DVT or PE, Cancer or OCP + Smoking + >/=35 PFSH PFSH Medical History Actinic keratoses Sacroiliac joint dysfunction of left side Arthritis History of renal stone Hyperlipemia Hypothyroidism Home Medications ?Medication ?Instructions ?Recorded ?Last Taken ?Type multivitamin 1 ea PO DAILY 11/05/18 Unknown History levothyroxine 100 mcg tablet 100 mcg PO DAILY #90 tabs 01/31/25 Unknown Rx simvastatin 40 mg tablet 40 mg PO QHS #90 tabs 01/31/25 Unknown Rx Allergy/AdvReac Type Severity Reaction Status Date / Time No Known Allergies Allergy Verified 04/08/25 21:08 Family History Father Heart disease CVA (cerebral vascular accident) Myocardial infarction Sister Age: 80 Heart disease High cholesterol Myocardial infarction Mother Cancer Surgical History History of cataract extraction history of anual fistula History of colonoscopy Social History household members: spouse current occupational status: employed 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 ROS ROS ED Constitutional Constitutional ED: Denies chills or fever(s) Eyes Eyes: Denies change in vision or diplopia ENT ENT ED: Denies rhinorrhea or sore throat Cardiovascular Cardiovascular: Reports as per HPI and chest pain; Denies flutter in chest, irregular heart rhythm, leg edema, palpitations, radiating jaw, neck or arm pain or syncope Respiratory/Chest Respiratory/Chest: Reports as per HPI and chest tightness; Denies cough or dyspnea Gastrointestinal Gastrointestinal: Denies abdominal pain, diarrhea, nausea or vomiting Genitourinary Genitourinary ED: Denies dysuria or hematuria Musculoskeletal Musculoskeletal: Denies back pain or neck pain Integumentary Denies abscess or rash Neurologic Neurologic: Denies headache(s), paresthesias or weakness Psychiatric Psychiatric: Denies anxiety or suicidal thoughts EXAM Physical Exam Const Vital Signs: 04/08/25 21:08 04/08/25 21:25 04/08/25 21:48 Temperature 97.3 F L Temperature Source Temporal Pulse Rate 65 Respiratory Rate 15 Respiratory Effort Normal Non-Labored Blood Pressure 138/83 H Blood Pressure Mean 101 Pulse Ox 95 97 Oxygen Delivery Method Room Air Room Air 04/08/25 23:00 04/09/25 00:00 Temperature Temperature Source Pulse Rate 64 54 L Respiratory Rate 12 13 Respiratory Effort Blood Pressure Blood Pressure Mean Pulse Ox 96 96 Oxygen Delivery Method Room Air Room Air Positive well nourished and well developed General Appearance ED: well developed and NAD HEENT Reports moist mucous membranes normocephalic and atraumatic Eyes PERRL and EOMs intact bilaterally Neck full ROM and supple Resp normal respiratory effort and clear to auscultation bilaterally Cardio regular rate, regular rhythm and no murmurs GI non-tender and non-distended Auscultation: normoactive bowel sounds Palpation: soft Back/Spine no CVA tenderness General Back: other FROM Extremity normal to inspection General Extremety ED: Negative for edema, pulses abnormal or tenderness General Extremity: Negative for edema or pulses abnormal Neuro oriented x3, CN's II-XII intact bilaterally and no sensory deficits noted Sensorium / Orientation: awake and alert Motor Exam: strength 5/5 throughout Skin no rashes or lesions noted and no wounds Heart Score History: Slightly/Non-Suspicious ECG: Normal Age: >/= 65 years Risk Factors: 1 or 2 Risk Factors Troponin: </= Normal Limit Score: 3 MDM MDM MDM Narrative Medical decision making narrative: Patient asymptomatic here his EKG is normal, his initial troponin is negative and the rest of his labs are normal. 1 view chest x-ray normal in my interpretation. I think that the pain he is having in the right lateral chest wall is musculoskeletal. His intermittent chest tightness is unclear. Differential includes intermittent unstable angina, esophagus discomfort, chest wall discomfort I do not think this is a PE given his normal vital signs and lack of pleuritic nature of symptoms or lateralizing symptoms or dyspnea. Second troponin also negative. I offered admission for provocative cardiac stress testing which she has never had done before, he declines and prefers to follow-up as an outpatient or (it is Thursday night and he has an appointment Thursday morning), he is relatively low risk and I am fine with this. We discussed return instructions and they are comfortable with that plan. Lab Data Attestation: I reviewed the patient's lab results. Labs: Laboratory Results - last 24 hr 04/08/25 04/08/25 21:20 23:23 WBC 8.2 RBC 4.62 Hgb 14.6 Hct 43.2 MCV 93.5 MCH 31.6 MCHC 33.8 RDW Std Deviation 45.1 H RDW Coeff of Tamar 13.2 Plt Count 200 MPV 10.9 Immature Gran % (Auto) 0.200 Neut % (Auto) 40.0 L Lymph % (Auto) 45.2 H Rich % (Auto) 11.1 H Eos % (Auto) 2.6 Baso % (Auto) 0.9 Absolute Neuts (auto) 3.3 Absolute Lymphs (auto) 3.72 Nucleated RBC % 0 Sodium 141 Potassium 4.0 Chloride 106 Carbon Dioxide 21.9 Anion Gap 13 BUN 16 Creatinine 0.87 Estim Creat Clear Calc 88.08 Est GFR (MDRD) Non-Af 92 BUN/Creatinine Ratio 18.5 Glucose 91 Calcium 9.3 Troponin T High Sens < 6 Troponin T Hi Sens 2 Hr < 6 Radiography Diagnostic Testing: Clinical Impression(s) from Imaging Studies Chest X-Ray 04/08/25 21:55 IMPRESSION: Negative Chest. Reading Location: [facility] Rhythm Strip Rhythm Strip: Sinus Rhythm Rate: 50 Ectopy: None EKG Initial EKG: Attestation: I personally reviewed and interpreted this EKG as follows: Interpretation: No Acute Injury Pattern and Sinus Bradycardia (50) Comments: Nml axis & intervals; nml EKG Discharge Plan Triage Chief Complaint: Chest Pain ED Provider: Jeff Jaquez Dx/Rx/DC Orders Clinical Impression: Chest tightness Instructions: ED Chest Pain, Uncertain Cause Prescriptions: No Action multivitamin 1 EACH tablet 1 ea PO DAILY simvastatin 40 mg tablet 40 mg PO QHS Qty: 90 3RF levothyroxine 100 mcg tablet 100 mcg PO DAILY Qty: 90 3RF Primary Care Provider: Dinah Camacho Referrals: Dinah Camacho MD [Primary Care Provider] - As soon as possible Activity Restrictions/Additional Instructions: Take aspirin in the meantime until you follow-up, 81 mg/day. Print Language: Frisian Disposition Disposition: Home, Self Care
[2025-04-08 22:32] LABS: Anion Gap 13 (5-15); BUN 16 mg/dL (4-19); BUN/Creat Ratio 18.5 RATIO (10-20); Calcium,Total 9.3 mg/dL (7.6-11.0); Carbon Dioxide 21.9 mmol/L (21.0-32.0); Chloride 106 mmol/L (98-108); Creatinine, Serum 0.87 mg/dL (0.70-1.20); EST Glomerular Filtration Rate 92 (>60); Estimated Creatinine Clearance 88.08 ml/min (50-250); Glucose 91 mg/dL (70-99); Sodium Level 141 mmol/L (133-145)
[2025-04-08 23:00] VITALS: PULSE 64; RESP 12; O2SAT 96
[2025-04-09] VITALS: PULSE 54; RESP 13; O2SAT 96
[2025-04-09 00:12] LABS: Troponin T High Sens 2 HR < 6 ng/L (<=22)
[2025-04-09 00:50] VITALS: BP 158/90; PULSE 65; RESP 15; TEMP 36.8; O2SAT 95
== END 2025-04-09 00:56 | disposition home or self-care (01) ==
PROVIDERS: Emergency Provider Emergency Medicine; PCP Internal Medicine; Visit Provider Emergency Medicine
DX: R07.89 Other chest pain (principal); E78.00 Pure hypercholesterolemia, unspecified; Z79.899 Other long term (current) drug therapy
CPT/HCPCS: 71045; 80048; 84484; 85025; 93005; 99284; A4216

== ENCOUNTER → 2025-08-28 | Outpatient (CLI) | payer MEDICARE, OTHER, SELFPAY ==
[2025-08-28 14:32] LABS: Hematocrit 43.0 % (40-54); Hemoglobin 15.1 g/dL (13.0-16.5); Immature Granulocytes Count 0.010 X10^3/uL (0.0-0.0); Mean Corp Hgb Conc 35.1 g/dL (32-36); Mean Corpuscular Volume 91.3 fL (80-94); Mean Platelet Vol. 10.2 fl (6.2-12.0); NRBC Flagged by Analyzer 0 % (0-5); Platelet Count 187 K/mm3 (150-450); RBC Distribution Width CV 12.9 % (11.6-14.6); RBC Distribution Width SD 43.6 fl (35.1-43.9); Red Blood Count 4.71 M/mm3 (4.6-6.2); White Blood Count 7.4 K/mm3 (4.4-11.0)
[2025-08-28 15:34] LABS: AST(SGOT) 22 U/L (<=37); Alanine Aminotransfer ALT/SGPT 18 U/L (<=46); Albumin, Serum 4.4 g/dL (3.4-4.8); Alkaline Phosphatase 74 U/L (40-129); Anion Gap 11 (5-15); BUN 14 mg/dL (4-19); BUN/Creat Ratio 15.7 RATIO (10-20); Calcium,Total 9.1 mg/dL (7.6-11.0); Carbon Dioxide 23.7 mmol/L (21.0-32.0); Chloride 107 mmol/L (98-108); Cholesterol 163 mg/dL (<=200); Free T3 2.8 pg/mL (2.18-3.98); Globulin 3.1 g/dL (2.2-4.2); Glucose 91 mg/dL (70-99); Low Density Lipoprotein Calc. 92 mg/dL; Magnesium 2.3 mg/dL (1.5-2.2); PSA,Total - Annual Screen 2.95 ng/mL (0.02-4.00); Potassium 4.0 mmol/L (3.3-5.1); Triglycerides 83 mg/dL; Very Low Density Lipoprotein 17 mg/dL (5-40); Vitamin B12 863 pg/mL (180-914); Vitamin D,25 Hydroxy 35.0 ng/mL (30-100); cholesterol:hdl ratio screen 2.92
== END | disposition home or self-care (01) ==
LOC: LAB 14:12
PROVIDERS: PCP Internal Medicine; Referring Provider Internal Medicine; Visit Provider Internal Medicine
DX: Z13.220 Encounter for screening for lipoid disorders (principal); R07.81 Pleurodynia; E78.2 Mixed hyperlipidemia; E03.9 Hypothyroidism, unspecified; I10 Essential (primary) hypertension; R73.9 Hyperglycemia, unspecified; Z12.5 Encounter for screening for malignant neoplasm of prostate; E55.9 Vitamin D deficiency, unspecified; E53.8 Deficiency of other specified B group vitamins
CPT/HCPCS: 36415; 80053; 80061; 82306; 82607; 83036; 83735; 84153; 84439; 84443; 84481; 85025; G0103